=== PATIENT | female | born 1930 | race Caucasian/White ===

== ENCOUNTER → 2017-01-06 | Outpatient (CLI) | payer OTHER ==
[~2017-01-06] MED LIST: AMIO0.1T PO; ATV5 PO; CALC-214 PO; LEVO25TA5 PO; MISC8TAB PO; MULT-506 PO; MULTTAB14 PO; PANT1TAB48 PO; [UNRECOGNIZED DRUG - OTHER] PO
--- NOTE | 2017-01-07 13:44 | MAMMOGRAPHY REPORT ---
BILATERAL DIGITAL SCREENING MAMMOGRAM TOMOSYNTHESIS WITH CAD: 01/06/2017 CLINICAL HISTORY: Routine screening. Patient has no complaints. TECHNIQUE: Breast tomosynthesis in addition to standard 2D mammography was performed. Current study was also evaluated with a Computer Aided Detection (CAD) system. COMPARISON: Comparison is made to exams dated: 01/02/2016 mammogram, 12/04/2014 mammogram, 10/28/2013 mammogram, 10/26/2012 mammogram, 10/17/2011 mammogram, and 10/08/2010 mammogram - [facility]. BREAST COMPOSITION: The tissue of both breasts is heterogeneously dense, which may obscure small mas ses. FINDINGS: The parenchymal pattern is unchanged. There are numerous bilateral benign rim calcificati ons. No developing mass, architectural distortion or cluster of suspicious microcalcifications is se en in either breast. IMPRESSION: ACR BI-RADS CATEGORY 2: BENIGN There is no mammographic evidence of malignancy. A 1 year screening mammogram is recommended. The pa tient will receive written notification of the results. Approximately 10% of breast cancers are not detected with mammography. A negative mammographic report should not delay biopsy if a clinically suggestive mass is present. Natalia Meredith M.D. ay/:01/06/2017 16:57:00 Manufacturers Service Representative: Jamila DURBIN(Anderson)(Rimma)(BD), [facility] letter sent: Normal 1/2 BI-RADS Code: ACR BI-RADS Category 2: Benign
== END | disposition home or self-care (01) ==
LOC: C.MAMM 14:10
PROVIDERS: ATTEND Family Medicine
DX: Z12.31 Encounter for screening mammogram for malignant neoplasm of breast (principal)

== ENCOUNTER 2017-05-05 04:12 | Inpatient (IN) | payer OTHER ==
[~2017-05-05] VITALS: Ht 162.6 cm; Wt 64.1 kg
[2017-05-05] VITALS (7 sets, daily range): BP systolic 103–179; BP diastolic 72–96; PULSE 55–84; TEMP 36.6–37.1; O2SAT 91–93; Ht 162.6 cm; Wt 64.1 kg
[~2017-05-05 04:12] MED LIST changes: +PANT1TAB3 PO; -PANT1TAB48 PO; +TOBRSUS33 OPR
[2017-05-05] MEDS ORDERED: AMIO200T4 PO (04:31)
[2017-05-05] MEDS ORDERED: [UNRECOGNIZED DRUG - CODE] PO (04:37)
[2017-05-05] MEDS ORDERED: ATV5X PO (04:37)
[2017-05-05] MEDS ORDERED: METO25TA4 PO (04:39)
[2017-05-05] MEDS ORDERED: LEVO88TA3 PO (04:39)
[2017-05-05] MEDS ORDERED: ALFA250T PO (04:39)
[2017-05-05 04:46] LABS: BASO % 0.5 %; BASO ABS # 0.04 K/uL (0-0.2); EOS ABS # 0.38 K/uL (0-0.5); HEMATOCRIT 40.4 % (37-47); HEMOGLOBIN 14.3 g/dL (12.0-16.0); IG# 0.01 K/uL (0.00-0.02); LYMPH % 33.9 %; LYMPH ABS # 2.59 K/uL (1.2-3.4); MEAN CORPUSCULAR HEMOGLOBIN 31.5 pg (25-34); MEAN CORPUSCULAR HGB CONC 35.4 g/dl (32-36); MEAN PLATELET VOLUME 10.6 fL (7.4-10.4); MONO % 7.5 %; MONO ABS # 0.57 K/uL (0.11-0.59); NEUT ABS # 4.04 K/uL (1.4-6.5); PLATELET COUNT 232 K/uL (130-400); RED CELL DISTRIBUTION WIDTH CV 13.2 % (11.5-14.5); RED CELL DISTRIBUTION WIDTH SD 43.2 fL (36.4-46.3); WHITE BLOOD COUNT 7.63 K/uL (4.8-10.8)
--- NOTE | 2017-05-05 04:53 | EMERGENCY ROOM VISIT NOTE ---
History Report prepared by Nellie: Sandi Marcum Under the Supervision of: Dr. Elle Frausto D.O. First contact with patient: 04:17 Chief Complaint: CARDIAC ASSESSMENT Stated Complaint: CHEST PRESSURE Nursing Triage Summary: chest pain shortness of breath after walking to the bathroom. History of Present Illness The patient is an 87 year old female who presents to the Emergency Room with complaints of intermittent chest pain for two weeks. She notes that she had a similar episode last week, though she was evaluated by her PCP and he prescribed her Amiodarone and Propranolol. She states her PCP informed her to come to the ED if she had any repeat symptoms. She notes the medication changes made her feel better and gave her more energy. She states that she was not very short of breath last week, though when she had the chest pain at 0200 this morning she became increasingly short of breath. She reports that she feels washed out. She notes the chest pain has resolved, though she is still short of breath. She notes the shortness of breath is worsened on exertion. She states that she is expected to receive a pacemaker in early May 2017 with Nadeem Bee, cardiology, since her heart is fluctuating from racing too quickly to suddenly slowing down. She notes that she can sometimes feel the changes in her hearts rhythm. Per nursing staff, the patient was at 85% oxygen on RA. She was placed on 2L oxygen via NC. She denies any history of CHF. She denies taking any Lasix or other diuretic. Source of History: patient Onset: two weeks Position: chest Timing: intermittent Modifying Factors (Worsening): exertion Associated Symptoms: + SOB Review of Systems See HPI for pertinent positives & negatives. A total of 10 systems reviewed and were otherwise negative. Past Medical & Surgical Medical Problems: (1) HTN (hypertension) (2) Shortness of breath Family History No pertinent family history Social History Smoking Status: Never Smoker Alcohol Use: none Marital Status: Housing Status: lives alone Occupation Status: unemployed Current/Historical Medications Scheduled Jay (Jay), 9 TABS PO DAILY Amiodarone Hcl (Cordarone), 200 MG PO DAILY Calcium W/ Magnesium (Calcium & Magnesium), 1 TAB PO TID Levothyroxine Sodium (Levothyroxine Sodium), 1 TAB PO DAILY Metoprolol Succinate (Toprol Xl), 25 MG PO DAILY Multiple Vitamins W/ Minerals (Icaps Areds Formula), 1 TAB PO BID Multivitamin (Multivitamin), 1 TAB PO QAM Tobramycin-Dexamethasone (Tobradex 0.3% Oph Susp), DROP OPR UD Scheduled PRN Lorazepam (Lorazepam), 0.5 MG PO [id number] PRN for anxiety/stress Rizatriptan Benzoate (Rizatriptan Benzoate), 5 MG PO UD PRN for Migraine Allergies Coded Allergies: Oxycodone (Verified Allergy, Unknown, RASH, 05/05/17) Physical Exam Vital Signs Date Time Temp Pulse Resp B/P (MAP) Pulse Ox O2 Delivery O2 Flow Rate FiO2 05/05/17 06:08 82 23 160/67 92 Room Air 05/05/17 05:11 73 05/05/17 05:09 68 22 142/97 96 Nasal Cannula 4.0 05/05/17 05:05 66 05/05/17 04:45 81 22 94 Nasal Cannula 4.0 05/05/17 04:22 89 Nasal Cannula 2.0 05/05/17 04:22 36.6 92 18 113/85 88 Nasal Cannula 4.0 05/05/17 04:22 88 Nasal Cannula 4.0 05/05/17 04:16 103 Physical Exam HEENT: Head - normocephalic and atraumatic Pupils are equal, round, and reactive to light. Extraocular eye muscles are intact, and sclera are anicteric. Nose - moist nasal mucosa without discharge. Mouth - moist buccal mucosa. Oropharynx is nonerythematous and there is no tonsillar exudate or edema noted. Neck: Supple; no JVD, nuchal rigidity, cervical lymphadenopathy. Heart: Tachycardic rate and irregular rhythm. There is a normal S1 and S2 with no murmurs, clicks, or gallops appreciated. Lungs: Diffuse rales. Abdomen: Soft, completely nontender, nondistended, with good bowel sounds. There are no palpable pulsatile masses or hepatosplenomegaly. There is no guarding, rigidity, or rebound noted. Extremities: No evidence of cyanosis, clubbing, or edema. There are easily palpable peripheral pulses. Skin: warm and dry with good turgor and no rashes. Medical Decision & Procedures ER Provider Diagnostic Interpretation: Radiology results as stated below per my review and interpretation: CHEST XR: Congestive heart failure. Narrow mediastinum. Borderline cardiomegaly. Laboratory Results 05/05/17 04:17 Red Blood Count 4.54, Mean Corpuscular Volume 89.0, Mean Corpuscular Hemoglobin 31.5, Mean Corpuscular Hemoglobin Concent 35.4, Mean Platelet Volume 10.6, Neutrophils (%) (Auto) 53.0, Lymphocytes (%) (Auto) 33.9, Monocytes (%) (Auto) 7.5, Eosinophils (%) (Auto) 5.0, Basophils (%) (Auto) 0.5, Neutrophils # (Auto) 4.04, Lymphocytes # (Auto) 2.59, Monocytes # (Auto) 0.57, Eosinophils # (Auto) 0.38, Basophils # (Auto) 0.04 05/05/17 04:17 Test 05/05/17 04:17 05/05/17 05:54 White Blood Count 7.63 K/uL (4.8-10.8) Red Blood Count 4.54 M/uL (4.2-5.4) Hemoglobin 14.3 g/dL (12.0-16.0) Hematocrit 40.4 % (37-47) Mean Corpuscular Volume 89.0 fL (80-100) Mean Corpuscular Hemoglobin 31.5 pg (25-34) Mean Corpuscular Hemoglobin Concent 35.4 g/dl (32-36) Platelet Count 232 K/uL (130-400) Mean Platelet Volume 10.6 fL (7.4-10.4) Neutrophils (%) (Auto) 53.0 % Lymphocytes (%) (Auto) 33.9 % Monocytes (%) (Auto) 7.5 % Eosinophils (%) (Auto) 5.0 % Basophils (%) (Auto) 0.5 % Neutrophils # (Auto) 4.04 K/uL (1.4-6.5) Lymphocytes # (Auto) 2.59 K/uL (1.2-3.4) Monocytes # (Auto) 0.57 K/uL (0.11-0.59) Eosinophils # (Auto) 0.38 K/uL (0-0.5) Basophils # (Auto) 0.04 K/uL (0-0.2) RDW Standard Deviation 43.2 fL (36.4-46.3) RDW Coefficient of Variation 13.2 % (11.5-14.5) Immature Granulocyte % (Auto) 0.1 % Immature Granulocyte # (Auto) 0.01 K/uL (0.00-0.02) Anion Gap 8.0 mmol/L (3-11) Est Creatinine Clear Calc Drug Dose 38.5 ml/min Estimated GFR () 56.7 Estimated GFR (Non- 49.0 BUN/Creatinine Ratio 18.4 (10-20) Calcium Level 9.5 mg/dl (8.5-10.1) Total Bilirubin 0.6 mg/dl (0.2-1) Aspartate Amino Transf (AST/SGOT) 23 U/L (15-37) Alanine Aminotransferase (ALT/SGPT) 37 U/L (12-78) Alkaline Phosphatase 58 U/L (45-117) Troponin I < 0.015 ng/ml (0-0.045) Pro-B-Type Natriuretic Peptide 2307 pg/ml (0-1800) Total Protein 8.2 gm/dl (6.4-8.2) Albumin 4.0 gm/dl (3.4-5.0) Globulin 4.2 gm/dl (2.5-4.0) Albumin/Globulin Ratio 1.0 (0.9-2) Laboratory results per my review. Medications Administered Medications (Trade) Dose Ordered Sig/Danielle Route Start Time Stop Time Status Last Admin Dose Admin Furosemide (Lasix Inj) 40 mg NOW STAT IV 05/05/17 05:15 05/05/17 05:16 DC 05/05/17 05:20 40 MG Procedure 0515: Ordered Lasix 40 mg IV ECG Per My Interpretation Indication: chest pain Rate (beats per minute): 90 Rhythm: normal sinus Findings: LBBB, PAC ED Course 0424: Past medical records reviewed. The patient was evaluated in room B12B. A complete history and physical exam was performed. Labs are drawn as above. A 12-lead EKG was obtained as described above. Reviewed cardiac rhythm strips and she is having episodes of tachycardia and bradycardia. Underlying rhythm is sinus rhythm with episodes of atrial tachycardia. 0515: A portable chest x-ray was performed. Ordered Lasix 40 mg IV 0521: I spoke with Dr. Viera, [facility] hospitalist. We discussed the patient's case. The patient will be evaluated by the [facility] for further management. 0524: I reassessed the patient at this time. She states that she is feeling better while on the oxygen and she is resting comfortably. I discussed the results and treatment plan with the patient. I answered all pertaining questions that she had. She expressed understanding and verbalized agreement. The patient will be further evaluated. Medical Decision The patient is an 87 year old female who presents to the ED with chest pain. Differential diagnosis includes CHF, ACS, tachy-roque syndrome, cardiac dysrhythmia, and STEMI. Lab results showed: BNP 2307; Troponin <0.015. Normal Renal Function. Gluc 102. Normal H&H. No leukocytosis. This is an 87-year-old female patient presents to the emergency department with increasing shortness of breath and chest pressure. On physical exam, the patient has diffuse rales in her lungs and orthopnea. Chest x-ray confirms evidence of pulmonary vascular congestion consistent with heart failure. Patient's O2 saturations were in the mid 80s without supplemental oxygen. She was given IV Lasix here in the emergency department. The patient explains that her system software programmer had planned for her to have a pacemaker implanted sometime in May as a result of her heart rhythm. Medication Reconcilliation Current Medication List: was personally reviewed by me Blood Pressure Screening Patient's blood pressure: Normal blood pressure Consults Time Called: 05 Consulting Physician: Dr. Viera [facility] Returned Call: [address] [facility] We discussed the patient's case. The patient will be evaluated by the [facility] for further management. Impression Primary Impression: CHF (congestive heart failure) Additional Impressions: Hypoxia Tachy-roque syndrome Critical Care I have personally spent greater than 30 minutes of critical care time in the direct management of this patient. This includes bedside care, interpretation of diagnostic studies, and testing, discussion with consultants, patient, and family members, and other required patient management activities. This 30 minutes is in excess of all separately billable procedures. Scribe Attestation The scribe's documentation has been prepared under my direction and personally reviewed by me in its entirety. I confirm that the note above accurately reflects all work, treatment, procedures, and medical decision making performed by me. Departure Information Dispostion Being Evaluated By Hospitalist Gadiel Kumar D.OFloridalma (PCP) Patient Instructions [facility] Problem Qualifiers Primary Impression: CHF (congestive heart failure) Heart failure type: unspecified Heart failure chronicity: acute Qualified Codes: I50.9 - Heart failure, unspecified
[2017-05-05 05:07] LABS: ALT/SGPT 37 U/L (12-78); AST/SGOT 23 U/L (15-37); BLOOD UREA NITROGEN 19 mg/dl (7-18); CALCIUM 9.5 mg/dl (8.5-10.1); CARBON DIOXIDE 26 mmol/L (21-32); CREATININE 1.04 mg/dl (0.60-1.20); GLUCOSE 102 mg/dl (70-99); POTASSIUM 3.9 mmol/L (3.5-5.1); SODIUM 139 mmol/L (136-145)
[2017-05-05 05:12] LABS: ALKALINE PHOSPHATASE 58 U/L (45-117); TOTAL PROTEIN 8.2 gm/dl (6.4-8.2)
[2017-05-05] MEDS ORDERED: FUROSEMIDE 40 MG/4 ML VIAL IV STA (05:15)
--- NOTE | 2017-05-05 06:08 | History and Physical ---
History & Physical Date & Time of Service: May 05, 2017 at 06:01 Chief Complaint: Chest Pressure Primary Care Physician: Gadiel Haile D.O. History of Present Illness This is an 87 year old F who has seen Dr. Silver cook syrup maker at [facility] as outpatient and as per outpatient chart review was started on amiodarone on because of palpitation symptoms and cardiology diagnosis include tachy- roque syndrome vs paroxysmal SVT, also has left bundle branch block. Since the cardiology outpatient patient, patient has been taking both metoprolol succinate 25 mg daily and amiodarone 200 mg daily. As per review of Dr. Silver's notes the outpatient plan was to have patient return as outpatient for resting echocardiogram, return for a 24 hour Holter monitor on 05/18/2017, return to see Dr. Patel of electrophysiology in consultation in May to review Holter monitor results are then to re-evaluate for further medication changes or possible pacemaker Patient had acute symptoms of waking up at 2AM on 05/05/17 with perspiration, walked to the bathroom and felt shortness of breath, heart pounding, chest tightness and heaviness, and subsequently called for the ambulance patient reports taking aspirin and nitro sublingual on the ambulance ride with relief of symptoms in the ED patient's heart rhythm irregular but heart rate became better controlled while in the ED ED physician gave patient 40 mg of IV Lasix and asked hospitalist medical doctor for evaluation and admission when examined by hospitalist medical doctor, patient denies feeling previous reported symptoms currently Past Medical/Surgical History Medical Problems: (1) Aortic stenosis (2) Heart palpitations (3) Heart palpitations (4) HTN (hypertension) (5) LBBB (left bundle branch block) (6) Mitral valve prolapse (7) Shortness of breath Family History No pertinent family history Social History Smoking Status: Never Smoker Marital Status: Occupational Status: unemployed Immunizations History of Influenza Vaccine: Yes History of Tetanus Vaccine?: Unknown History of Pneumococcal: Yes Pneumococcal Date: Nov 25, 2003 History of Hepatitis B Vaccine: Unknown Allergies Coded Allergies: Oxycodone (Verified Allergy, Unknown, RASH, 05/05/17) Home Medications Scheduled Washita (Washita), 9 TABS PO DAILY Amiodarone Hcl (Cordarone), 200 MG PO DAILY Calcium W/ Magnesium (Calcium & Magnesium), 1 TAB PO TID Levothyroxine Sodium (Levothyroxine Sodium), 1 TAB PO DAILY Metoprolol Succinate (Toprol Xl), 25 MG PO DAILY Multiple Vitamins W/ Minerals (Icaps Areds Formula), 1 TAB PO BID Multivitamin (Multivitamin), 1 TAB PO QAM Tobramycin-Dexamethasone (Tobradex 0.3% Oph Susp), DROP OPR UD Scheduled PRN Lorazepam (Lorazepam), 0.5 MG PO [id number] PRN for anxiety/stress Rizatriptan Benzoate (Rizatriptan Benzoate), 5 MG PO UD PRN for Migraine Review of Systems Constitutional: + sweats, No fever, No weakness, No fatigue Eyes: + problem reported (reports history of macular degeneration), No eye pain ENT: + problem reported (reports that she takes aspirin every other day to avoid nose bleeds), No hearing loss Respiratory: + shortness of breath, No cough, No wheezing, No hemoptysis Cardiovascular: + chest pain, + palpitations, No edema Abdomen: No pain, No nausea, No vomiting Musculoskeletal: No joint pain, No muscle pain, No swelling, No calf pain Genitourinary - Female: No dysuria Neurologic: No paralysis, No numbness/tingling Endocrine: No fatigue Hematologic / Lymphatic: No abnormal bleeding/bruising Integumentary: No rash, No itch Physical Exam Vital Signs Date Time Temp Pulse Resp B/P (MAP) Pulse Ox O2 Delivery O2 Flow Rate FiO2 05/05/17 05:11 73 05/05/17 05:09 68 22 142/97 96 Nasal Cannula 4.0 05/05/17 05:05 66 05/05/17 04:45 81 22 94 Nasal Cannula 4.0 05/05/17 04:22 89 Nasal Cannula 2.0 05/05/17 04:22 36.6 92 18 113/85 88 Nasal Cannula 4.0 05/05/17 04:22 88 Nasal Cannula 4.0 05/05/17 04:16 103 General Appearance: no apparent distress Head: normocephalic, atraumatic Eyes: normal inspection, EOMI, sclerae normal ENT: normal ENT inspection, hearing grossly normal, pharynx normal Neck: supple, no adenopathy, no JVD, trachea midline Respiratory/Chest: chest non-tender, lungs clear, normal breath sounds, no respiratory distress, no accessory muscle use Cardiovascular: no edema, no JVD, normal peripheral pulses, + abnormal rhythm Abdomen/GI: normal bowel sounds, non tender, soft, no organomegaly, no pulsatile mass Back: normal inspection, no muscle spasm, normal range of motion Extremities/Musculoskelatal: normal inspection, no calf tenderness, normal capillary refill, no pedal edema, normal range of motion, non-tender Neurologic/Psych: adjustment examiner II-XII nml as tested, no motor/sensory deficits, alert, normal mood/affect, oriented x 3 Skin: normal color, warm/dry, no rash Diagnostics Laboratory Results Results Past 24 Hours Test 05/05/17 04:17 05/05/17 05:54 Range/Units White Blood Count 7.63 4.8-10.8 K/uL Red Blood Count 4.54 4.2-5.4 M/uL Hemoglobin 14.3 12.0-16.0 g/dL Hematocrit 40.4 37-47 % Mean Corpuscular Volume 89.0 80-100 fL Mean Corpuscular Hemoglobin 31.5 25-34 pg Mean Corpuscular Hemoglobin Concent 35.4 32-36 g/dl Platelet Count 232 130-400 K/uL Mean Platelet Volume 10.6 7.4-10.4 fL Neutrophils (%) (Auto) 53.0 % Lymphocytes (%) (Auto) 33.9 % Monocytes (%) (Auto) 7.5 % Eosinophils (%) (Auto) 5.0 % Basophils (%) (Auto) 0.5 % Neutrophils # (Auto) 4.04 1.4-6.5 K/uL Lymphocytes # (Auto) 2.59 1.2-3.4 K/uL Monocytes # (Auto) 0.57 0.11-0.59 K/uL Eosinophils # (Auto) 0.38 0-0.5 K/uL Basophils # (Auto) 0.04 0-0.2 K/uL RDW Standard Deviation 43.2 36.4-46.3 fL RDW Coefficient of Variation 13.2 11.5-14.5 % Immature Granulocyte % (Auto) 0.1 % Immature Granulocyte # (Auto) 0.01 0.00-0.02 K/uL Sodium Level 139 136-145 mmol/L Potassium Level 3.9 3.5-5.1 mmol/L Chloride Level 105 98-107 mmol/L Carbon Dioxide Level 26 21-32 mmol/L Anion Gap 8.0 3-11 mmol/L Blood Urea Nitrogen 19 7-18 mg/dl Creatinine 1.04 0.60-1.20 mg/dl Est Creatinine Clear Calc Drug Dose 38.5 ml/min Estimated GFR () 56.7 Estimated GFR (Non- 49.0 BUN/Creatinine Ratio 18.4 10-20 Random Glucose 102 70-99 mg/dl Calcium Level 9.5 8.5-10.1 mg/dl Total Bilirubin 0.6 0.2-1 mg/dl Aspartate Amino Transf (AST/SGOT) 23 15-37 U/L Alanine Aminotransferase (ALT/SGPT) 37 12-78 U/L Alkaline Phosphatase 58 45-117 U/L Troponin I < 0.015 0-0.045 ng/ml Pro-B-Type Natriuretic Peptide 2307 0-1800 pg/ml Total Protein 8.2 6.4-8.2 gm/dl Albumin 4.0 3.4-5.0 gm/dl Globulin 4.2 2.5-4.0 gm/dl Albumin/Globulin Ratio 1.0 0.9-2 Impression Assessment and Plan This is an 87 year old F who has seen Dr. Silver cook syrup maker at [facility] as outpatient and as per outpatient chart review was started on amiodarone on because of palpitation symptoms and cardiology diagnosis include tachy- roque syndrome vs paroxysmal SVT, also has left bundle branch block Assessment/ Plan: symptoms of shortness or breath, chest discomfort, palpitations likely due to arrhythmia - most likely from outpatient diagnosis of tachy-roque syndrome -patient is clinically euvolemic, has received Lasix 40 mg IV x 1 in the ER because of elevated BNP -admission to telemetry, initial troponin negative, trend troponins -continue amiodarone 200 mg daily, metoprolol succinate 25 mg daily -continue Levothyroxine, check TSH and T4 -check serum magnesium -hold home dose aspirin for now as patient already received aspirin on the ambulance ride -have ordered resting echocardiogram to be done on this admission -cardiology consult requested -keep NPO (except meds/ice chips/sips) until after cardiology consult evaluation and further recommendations other health issues macular degeneration, hold eye drops for now arthritis, hold alfalfa tabs and naproxen for now DVT ppx SCD Full code Resuscitation Status VTE Prophylaxis Will order VTE Prophylaxis: Yes
--- NOTE | 2017-05-05 07:00 | DIAGNOSTIC IMAGING REPORT ---
CHEST ONE VIEW PORTABLE CLINICAL HISTORY: 87 years-old Female presenting with sob. TECHNIQUE: Portable upright AP view of the chest was obtained. COMPARISON: 12/01/2013. FINDINGS: Atherosclerosis of aortic arch. Cardiac silhouette mildly enlarged. Mid to basilar predominant hazy and reticular opacities. Calcified granuloma noted at the left apex. Trace left pleural effusion may be present. Degenerative changes of the thoracic spine. Slightly exaggerated thoracic kyphosis. Upper abdomen normal. IMPRESSION: 1. Mild cardiomegaly with mid to basilar predominant opacities raising concern for pulmonary edema or aspiration. 2. Possible trace left pleural effusion. Electronically signed by: Ramesh Camargo M.D. 05/05/2017 6:59 AM Dictated Date/Time: 05/05/2017 6:58 AM
[2017-05-05] MEDS: LEVOTHYROXINE 88 MCG TAB PO SCH (08:55)
[2017-05-05] MEDS ORDERED: METOPROLOL SUCC 25MG EXT REL TAB PO SCH (09:00)
[2017-05-05] MEDS ORDERED: AMIODARONE 200 MG TAB PO SCH (09:00)
--- NOTE | 2017-05-05 10:06 | CARDIOLOGY CONSULTATION ---
DATE OF CONSULTATION: 05/05/2017 CONSULTATION REQUESTED BY: Dr. Viera. REASON FOR CONSULTATION: Palpitations. HISTORY OF PRESENT ILLNESS: Mrs. Bender is a very pleasant 87-year-old woman who normally follows with Dr. Silver of our cardiology practice. She presented to [facility] early in the a.m. of 05/05/2017 with a complaint of acute chest discomfort and palpitations. The patient states that she went to bed last night in her normal state of health, but then woke up at approximately 02:00 a.m. and felt a discomfort in her chest. She described the discomfort as a pounding sensation that started in her mid substernal area and radiated up into her neck. This was associated with some shortness of breath and lightheadedness. She states that this is very similar to the episodes that she has had in the past with her SVT, for which she has been following Dr. Silver; however, this episode actually seemed more severe than normal. At that time, she became concerned and came into the Emergency Department. In the Emergency Department, she was found to be in sinus rhythm with frequent atrial ectopy and sinus pauses. She was thought to be a little volume overload and was given a dose of IV Lasix and she states that her symptoms started to improve. She is still feeling short of breath in the Emergency Department, but the chest discomfort and palpitations had resolved. She was admitted to telemetry and overnight, again we saw a sinus rhythm with frequent ectopy and significant sinus pauses. Upon further questioning, the patient states that she has been lightheaded recently. Particularly, she notes that she is lightheaded with activity whenever she tries to walk up a flight of steps or walking any significant distances. The patient has been following very closely with Dr. 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 She has actually been restarted on amiodarone for her paroxysmal SVT as well as metoprolol. A recent Zio patch monitor in July showed heart rates ranging from 43-200 beats per minute. The patient was actually scheduled for an outpatient echocardiogram and evaluation with Dr. Patel for possible pacemaker placement. PAST SURGICAL HISTORY: 1. Multiple colonoscopies. 2. Upper endoscopies. 3. Sinus surgery. 4. Vein stripping. 5. Partial mastectomy. 6. Appendectomy. 7. Cataract surgery. 8. Small bowel biopsy. 9. Total abdominal hysterectomy. 10. Left total hip replacement. MEDICAL ILLNESSES: 1. Paroxysmal supraventricular tachycardia. 2. Varicose veins. 3. Chronic left bundle branch block. 4. Osteoporosis. 5. Irritable bowel. 6. Hypothyroidism. 7. Ocular migraines. 8. Hypertension. FAMILY HISTORY: Noncontributory. SOCIAL HISTORY: The patient denies any alcohol, tobacco or recreational drug use. She is . She is a retired RN. REVIEW OF SYSTEMS: As per HPI, all other review of systems reviewed and negative at this time. ALLERGIES: OXYCODONE. MEDICATIONS AN OUTPATIENT: 1. Amiodarone 200 mg daily. 2. Aspirin 81 mg daily. 3. Metoprolol succinate 25 mg daily. 4. Omeprazole daily. 5. Ativan p.r.n. 6. Levoxyl daily. 7. Flonase daily. PHYSICAL EXAMINATION: VITALS: Temperature 36.7, pulse 84, respiratory rate 12, blood pressure 175/81, and saturating 92% on room air. GENERAL: Awake, alert, and oriented x3 in no acute distress. HEENT: Normocephalic and atraumatic. Pupils equal, round react to light and accommodation. Extraocular muscles intact. Anicteric sclerae. Moist mucous membranes. NECK: No JVD and no bruit. CARDIOVASCULAR: Irregularly irregular with significant pauses. 2/6 mid to late systolic ejection murmur greatest at the right sternal border second intercostal space without radiation. No rubs. PULMONARY: Clear to auscultation bilaterally. No rales, rhonchi, or wheezing. ABDOMEN: Bowel sounds x4. Soft. No rebound, guarding, or tenderness. No organomegaly. EXTREMITIES: No clubbing, cyanosis or edema. +2 pedal pulses bilaterally. SKIN: Warm and dry. TEST RESULTS: Review of telemetry monitoring shows sinus rhythm with an underlying left bundle branch block, frequent atrial ectopy including short salvos of SVT and significant sinus pauses. A 2D echocardiogram is pending at this time. LABORATORY STUDIES OF SIGNIFICANCE: Sodium 139, potassium 3.9, BUN 19, and creatinine 1. TSH of 2.9. White count of 7.6, hemoglobin of 14, and platelet count of 232. IMPRESSION: 1. Tachybrady syndrome. 2. Paroxysmal supraventricular tachycardia. 3. Hypertension. 4. Chronic underlying left bundle branch block. RECOMMENDATIONS: It was my pleasure to see Mrs. Bender in consultation today. The patient was counseled that given her symptoms, it does appear as though she is symptomatic from her supraventricular tachycardia and also appears that she may be suffering from chronotropic incompetence as well given the lightheadedness with exertion. She does have documented rates down into the 40s on only low dose amiodarone and metoprolol. So at this point, I believe the patient does suffer from tachybrady syndrome and would benefit from pacemaker placement, which was discussed with her and she is in agreement. So at this time, as long as her LV systolic function is not severely reduced, we will plan on a dual chamber permanent pacemaker placement and then increasing of her beta blockade and amiodarone to suppress her SVT. There is no sustained atrial flutter or fibrillation, so I do not believe anticoagulation is necessary at this time and the case will be reviewed with Dr. Patel for pacemaker placement. The patient will remain n.p.o. for now.
[2017-05-05 10:27] LABS: PTT PATIENT 24.1 SECONDS (21.0-31.0)
--- NOTE | 2017-05-05 10:40 | ECHOCARDIOGRAM REPORT ---
*NOTICE TO RECEIVING DEMOCRAT AGENCY This information is strictly Confidential and protected under [place] law. [place] law prohibits you from making any further disclosure of this information unless further disclosure is expressly permitted by the written consent of the person to whom it pertains or is authorized by law. A general authorization for the release of medical or other information is not sufficient for this purpose. Hospital accepts no responsibility if the information is made available to any other person, INCLUDING THE PATIENT. Interpretation Summary * Name: PABLO OSORIO Study Date: 05/05/2017 09:14 AM BP: 175/81 mmHg * Patient Location: [facility]\S\[id number]\S\1 HR: 84 * : 1930 (M/d/yyyy) Gender: Female Height: 64 in * Age: 87 yrs Ethnicity: [place] Weight: 159 lb * Ordering Physician: Angelo Viera * Referring Physician: Self, Referred * Performed By: Danica Laura RCS * * Reason For Study: Tachy-Niles * BSA: 1.8 m2 * -- Conclusions -- * Rhythm during examination was sinus with underlying LBBB along with salvos of SVT and sinus pauses. * Normal LV chamber size and wall thickness. * Normal LV systolic function, EF 55-60%. * No segmental left ventricular wall motion abnormalities are noted. * Grade I diastolic dysfunction. * Aortic valve sclerosis mild, without significant aortic valvular stenosis. * Mild mitral regurgitation. * Trace tricuspid regurgitation. * Mild left atrial enlargement. Procedure Details * A complete two-dimensional transthoracic echocardiogram was performed (2D, M-mode, Doppler and color flow Doppler). Left Ventricle * The left ventricle is normal in size. * There is normal left ventricular wall thickness. * Left ventricular systolic function is normal. * No segmental left ventricular wall motion abnormalities are noted. * Ejection Fraction = 55-60%. * The left ventricular wall motion is normal. Right Ventricle * The right ventricular cavity size is normal (basal dimension <4.2 cm in right ventricular apical 4-chamber view). * The right ventricular systolic function is normal as assessed by tricuspid annular plane systolic excursion (TAPSE) (normal >1.5 cm). Atria * The left atrium is mildly dilated. * Right atrial size is normal. * No ASD detected; PFO is not assessed. Mitral Valve * The mitral valve leaflets appear thickened, but open well. * There is no mitral valve stenosis. * There is mild mitral regurgitation. Tricuspid Valve * The tricuspid valve anatomy is normal. * There is no tricuspid stenosis. * There is trace tricuspid regurgitation. Aortic Valve * The aortic valve is trileaflet. * Aortic valve sclerosis mild, without significant aortic valvular stenosis. Pulmonic Valve * The pulmonary valve is not well seen, but the Doppler examination is normal without significant regurgitation or stenosis. Great Vessels * The aortic root and proximal ascending aorta are normal sized. Pericardium/Pleural * There is no pericardial effusion. Left Ventricular Diastolic Function * Grade I diastolic dysfunction, (abnormal relaxation pattern). MMode 2D Measurements and Calculations IVSd 0.95 cm IVSs 1.2 cm LVIDd 5.0 cm LVIDs 3.7 cm LVPWd 0.99 cm LVPWs 1.4 cm IVS/LVPW 0.96 FS 25.4 % EDV(Teich) 117.4 ml ESV(Teich) 58.9 ml EF(Teich) 49.9 % EDV(cubed) 123.9 ml ESV(cubed) 51.5 ml EF(cubed) 58.5 % % IVS thick 28.8 % % LVPW thick 45.5 % LV mass(C)d 175.0 grams LV mass(C)dI 98.6 grams/m\S\2 LV mass(C)s 175.5 grams LV mass(C)sI 98.9 grams/m\S\2 SV(Teich) 58.6 ml SI(Teich) 33.0 ml/m\S\2 SV(cubed) 72.4 ml SI(cubed) 40.8 ml/m\S\2 Ao root diam 3.5 cm Ao root area 9.4 cm\S\2 ACS 1.3 cm LA dimension 4.6 cm asc Aorta Diam 3.5 cm LA/Ao 1.3 EDV(MOD-sp4) 100.7 ml ESV(MOD-sp4) 41.5 ml EF(MOD-sp4) 58.8 % EDV(MOD-sp2) 90.7 ml ESV(MOD-sp2) 49.8 ml EF(MOD-sp2) 45.1 % SV(MOD-sp4) 59.2 ml SI(MOD-sp4) 33.4 ml/m\S\2 SV(MOD-sp2) 40.9 ml SI(MOD-sp2) 23.0 ml/m\S\2 Doppler Measurements and Calculations MV E max miller 70.7 cm/sec MV A max miller 102.7 cm/sec MV E/A 0.69 MV P1/2t max miller 96.6 cm/sec MV P1/2t 132.5 msec MVA(P1/2t) 1.7 cm\S\2 MV dec slope 213.5 cm/sec\S\2 MV dec time 0.48 sec Ao V2 max 131.1 cm/sec Ao max PG 7.0 mmHg Ao max PG (full) 3.7 mmHg LV V1 max PG 3.3 mmHg LV V1 max 90.3 cm/sec PA V2 max 78.0 cm/sec PA max PG 2.5 mmHg TR max miller 255.5 cm/sec
[2017-05-05] MEDS ORDERED: BUPIVACAINE 0.5 % 5 MG/1 ML MPF 30ML VIAL ONE (10:58)
[2017-05-05] MEDS ORDERED: BACITRACIN 50000 UNIT VIAL ONE (10:58)
[2017-05-05] MEDS ORDERED: LIDOCAINE HCL 1% 20 ML VIAL ONE (10:58)
--- NOTE | 2017-05-05 10:58 | History & Physical Bridge Note ---
H&P Re-Evaluation Bridge Note: I have examined the patient, reviewed the History & Physical and in the interval since the performance of the History & Physical I have noted the following changes of clinical significance: Pt with Tachy-roque syndrome for a dual chamber pacemaker.
--- NOTE | 2017-05-05 10:59 | Pre Sedation Assessment ---
Pre Sedation Assessment General Date of Sedation: May 05, 2017. Vital Signs Past 12 Hours Date Time Temp Pulse Resp B/P (MAP) Pulse Ox O2 Delivery O2 Flow Rate FiO2 05/05/17 08:00 92 Room Air 05/05/17 07:24 36.7 84 16 175/81 (112) 92 Room Air 05/05/17 06:40 36.9 81 18 172/96 (121) 93 Room Air 05/05/17 06:40 36.9 74 20 172/96 93 Room Air 05/05/17 06:08 82 23 160/67 92 Room Air 05/05/17 05:11 73 05/05/17 05:09 68 22 142/97 96 Nasal Cannula 4.0 05/05/17 05:05 66 05/05/17 04:45 81 22 94 Nasal Cannula 4.0 05/05/17 04:22 89 Nasal Cannula 2.0 05/05/17 04:22 36.6 92 18 113/85 88 Nasal Cannula 4.0 05/05/17 04:22 88 Nasal Cannula 4.0 05/05/17 04:16 103 Review Cardiovascular: + bradycardia Lungs: lungs clear Pre-Sedation Airway Assessment Smoking Status: Never Smoker Hx of Sleep Apnea: No Short Thick Neck: No Thyro-mental Distance: < or =3 Finger Breadths Oral Cavity: WNL Mallampati Classification: Class II ASA Classification: Class II Procedure Planning Contraindications for Sedation: None Current Medications Reviewed: Yes Notes The planned sedation has been discussed with the patient. Informed Consent was obtained. I have identified the patient, determined the appropriateness of sedation and have assessed the patient immediately prior to the procedure. All medicine(s) and interventions are by my order.
[2017-05-05] MEDS ORDERED: FENTANYL CITRATE INJ 50 MCG/1 ML 2 ML VIAL ONE ×2 (11:11→11:51)
[2017-05-05] MEDS ORDERED: WATER, STERILE FOR INJ 10 ML VIAL ONE (11:11)
[2017-05-05] MEDS ORDERED: MIDAZOLAM HCL 5 MG/ML 1 ML VIAL ONE (11:11)
[2017-05-05] MEDS ORDERED: CEFAZOLIN SOD 1 GM VIAL ONE (11:11)
--- NOTE | 2017-05-05 12:36 | Post Sedation Assessment ---
Post Sedation Assessment General Date of Sedation May 05, 2017. Vital Signs: Vital Signs Past 12 Hours Date Time Temp Pulse Resp B/P (MAP) Pulse Ox O2 Delivery O2 Flow Rate FiO2 05/05/17 12:30 66 16 138/83 (101) 95 Mask 4 05/05/17 08:00 92 Room Air 05/05/17 07:24 36.7 84 16 175/81 (112) 92 Room Air 05/05/17 06:40 36.9 81 18 172/96 (121) 93 Room Air 05/05/17 06:40 36.9 74 20 172/96 93 Room Air 05/05/17 06:08 82 23 160/67 92 Room Air 05/05/17 05:11 73 05/05/17 05:09 68 22 142/97 96 Nasal Cannula 4.0 05/05/17 05:05 66 05/05/17 04:45 81 22 94 Nasal Cannula 4.0 05/05/17 04:22 89 Nasal Cannula 2.0 05/05/17 04:22 36.6 92 18 113/85 88 Nasal Cannula 4.0 05/05/17 04:22 88 Nasal Cannula 4.0 05/05/17 04:16 103 Post Procedure Recovery Score Activity: (2) Moves 4 extremities * Respiration: (2) Deep breath/cough Circulation: (2) +/-20% PreAnes Value Consciousness: (1) Arouseable (by name) Oxygen Saturation: (1) O2 needed for >90% Post Anesthesia Score: 8 Discharge Sedation Level of Care: Fast Track Phase II Post Sedation Plan On clinical assessment, the patient appears to have tolerated the sedation without complications. Patient is recovering as anticipated. Patient will continue to be monitored by nursing and may be discharged when sedation discharge criteria are met per below protocol. Upon Completions of procedure and additional 15 minutes continue every 5 minute vital signs and the P.A.R. score; then discharge to a Phase I or Fast Track to Phase II per the following guidelines: * Discharge Patient to appropriate Phase II area if PAR is 8 or greater or return to pre- procedure baseline. The post - procedure orders will be as directed. * If PAR score is less than 8 or not return to pre-procedure baseline then patient will follow Phase I monitoring till PAR is reached for Phase II. The Phase I may be done in procedure room or may call to secure a Phase I area. * If naloxone or flumazenil are used for reversal, hold in Phase I for an additional 60 -120 minutes before discharge to Phase II. Please call the Sedation Physician to re-evaluate and complete post-note for discharge to Phase II area. Do NOT discharge from procedure sedation or Phase 1 until post- sedation evaluation note is complete by procedure /sedation MD Sedation Discharge Instructions to be given to the patient at discharge to home.
--- NOTE | 2017-05-05 12:37 | [facility] Post Operative Brief Note ---
Immediate Operative Summary Operative Date May 05, 2017. Pre-Operative Diagnosis tbs Post-Operative Diagnosis same Procedure(s) Performed dual chamber rate responsive permanent pacemaker under fluroscopic guidance Surgeon gagan eugene Stone Carver Surgeon(s) none Estimated Blood Loss 20cc Findings See Below see official report Fluids (cc crystalloids) 150cc Specimens none Drains None Anesthesia Type IV Sedat Cons RN Only Complication(s) none Disposition Accompanied Pt To Recover: yes Disposition: PCU
--- NOTE | 2017-05-05 13:32 | OPERATIVE REPORT ---
DATE OF OPERATION: 05/05/2017 PREOPERATIVE DIAGNOSIS: Tachybrady syndrome. POSTOPERATIVE DIAGNOSIS: Same. PROCEDURE: Dual chamber rate responsive permanent pacemaker under fluoroscopic guidance. SURGEON: Dr. Chantale Patel. [employer]ILER[employer]SE ME[employer]IC: None. ANESTHESIA: Monitored conscious sedation administered under my supervision by Sangiat Doyle. Start time 11:23, end time 12:30. A total of 5 mg of Versed and 150 mcg of fentanyl. INTRAVENOUS FLUIDS: 150 mL ANTIBIOTICS: 1 gram of Ancef. BLOOD LOSS: Less than 20 mL COMPLICATIONS: None. CONDITION: Stable. URINE OUTPUT: Not applicable. SPECIMENS: None. FINDINGS: See below. DRAINS: None. INDICATIONS: This is an 87-year-old female who sees Dr. Silver in our office. She has paroxysmal SVT, probably an atrial tachycardia, chronic left bundle-branch block, varicose veins, hypothyroidism, ocular migraines, hypertension, irritable bowel syndrome and osteoporosis. She has been showing signs of tachybrady syndrome, ended up in the hospital due to the symptoms of tachybrady syndrome and was recommended a permanent pacemaker. CONSENT: Consent was obtained prior to the patient going into electrophysiology lab. The patient was informed of the risks, benefits and alternatives to the procedure. Risks include but not limited to sudden cardiac , cardiac arrhythmias, cerebrovascular accident, myocardial infarction, injury to the blood vessels, chamber of the heart, bleeding and infection. DESCRIPTION OF THE PROCEDURE: 20 mL of 1% lidocaine-bupivacaine mixture were given in the left deltoid groove. Incision was made in the left deltopectoral groove. Blunt dissection was performed down to identify the cephalic vein. The cephalic vein was identified and isolated using 0 silk ties. The vein was nicked with an 11 blade and a Glidewire was inserted without any resistance. An 8-Fijian sheath was inserted through the guidewire without any resistance. Dilator was removed and a second guidewire was inserted through the 8-Fijian sheath to allow for retained venous access. The sheath was removed, flushed, dilator reinserted over it and then it was reinserted over the Glidewire. The Glidewire and dilator removed. Right ventricular pacing lead was then advanced into right ventricle and positioned into right ventricular apex under fluoroscopic guidance. There were adequate pacing and sensing thresholds and no diaphragmatic stimulation with high output pacing. The 8-Fijian sheath was peeled away and lead was fixated to pectoralis muscle using 0 silk suture. A 7-Fijian sheath was then inserted over the retained guidewire without resistance. The guidewire and dilator removed. The right atrial pacing lead was then advanced into the right atrium and positioned into right atrial appendage under fluoroscopic guidance. There were adequate pacing and sensing thresholds and no diaphragmatic stimulation with high output pacing. The 7-Fijian sheath was peeled away and lead was fixated to pectoralis muscle using 0 silk suture. 10 mL of 1% lidocaine-bupivacaine mixture were given in the pectoralis fascia. Then, using blunt dissection over the pectoralis muscle within the fascia, a pacemaker pocket was created. The pocket was flushed with copious amounts of bacitracin saline wash and inspected for hemostasis. The pulse generator was then attached to the leads, making sure the pins were in appropriate position, passed set screws and set screws were all tightened. Pulse generator was then placed in the pocket, making sure the leads were lying flat beneath the device. A stay stitch using 0 silk suture was used to secure the device to the pectoralis muscle. The incision was then closed in 3-layer fashion using 2-0 Vicryl interrupted suture, followed by 3-0 Vicryl interrupted suture, followed by 4-0 Monocryl running stitch and Dermabond was applied. EQUIPMENT: 1. Pulse generator is a Medtronic Sindy XT DR ADAM Aguero [id number], serial #[id number]. 2. Right atrial lead Medtronic 5076-52 cm, serial #[id number]. 3. Right ventricular lead, Medtronic 5076-58 cm, serial #[id number]. INTRAOPERATIVE TESTIN. Right atrial lead, P-waves 2.5 millivolts, impedance 879 ohms, threshold 0.4 volts at 0.6 milliamps. 2. Right ventricular lead, R-waves 17.4 millivolts, impedance 906 ohms, threshold 1.1 volt at 1.3 milliamps. FINAL MEASUREMENTS THROUGH THE DEVICE: 1. Right atrial lead, P-waves 1.9 millivolts, impedance 684 ohms, threshold 0.5 volts at 0.4 milliseconds. 2. Right ventricular lead, R-waves 20 millivolts, impedance 589 ohms, threshold 1 volt at 0.4 milliseconds. FINAL PARAMETERS: MVP-R 60/130. Right atrial amplitude 3.5 volts, pulse width 0.4 milliseconds, sensitivity 0.3 millivolts. Right ventricular amplitude 3.5 volts, pulse width 0.4 milliseconds, sensitivity 1.2 millivolts. IMPRESSION: Successful implantation of dual chamber rate responsive permanent pacemaker under fluoroscopic guidance secondary to tachybrady syndrome. PLAN: Monitor the patient overnight, 12-lead ECG, chest x-ray. She cannot lift the left elbow over left shoulder for 1 month. She cannot lift more than 10 pounds with the left arm for 2 weeks. She can shower tomorrow in 48 hours, let water run over the incision, do not scrub it. She can continue her amiodarone as well as her metoprolol. She is to follow up in our [facility] office for device and wound check in 7-10 days. I attest to the content of the Intraoperative Record and any orders documented therein. Any exception s are noted below.
[2017-05-05] MEDS ORDERED: NURSING VERBAL MED ORDER ONE ×3 (16:00→20:15)
[2017-05-05] MEDS ORDERED: ONDANSETRON INJ 2 MG/ML 2 ML VIAL IV ONE (16:15)
--- NOTE | 2017-05-05 16:44 | Progress Note ---
Medicine Progress Note Date & Time of Visit: May 05, 2017 at 16:27. Subjective Pt was seen and examined Lying in bed with no distress with son at bedside Just came back from surgery for pacemaker placement Pt said that she is having tenderness from the incision site Denies any palpitation and SOB Objective Last 8 Hrs Date Time Temp Pulse Resp B/P (MAP) Pulse Ox O2 Delivery O2 Flow Rate FiO2 05/05/17 12:50 36.7 60 14 103/75 (84) 91 Room Air Mask 05/05/17 12:30 66 16 138/83 (101) 95 Mask 4 Physical Exam: General- No acute distress Head- atraumatic Eyes- PERRL, EOMI ENT- oropharynx clear Neck- supple, no JVD Lungs- clear to auscultation Heart- +murmur, Irregular Abdomen- normal bowel sounds, soft Extremities- no calf tenderness Neuro- alert, oriented x 3; PERRL, EOMI Skin- warm & dry Laboratory Results: Last 24 Hours Test 05/05/17 04:17 05/05/17 09:53 White Blood Count 7.63 K/uL Red Blood Count 4.54 M/uL Hemoglobin 14.3 g/dL Hematocrit 40.4 % Mean Corpuscular Volume 89.0 fL Mean Corpuscular Hemoglobin 31.5 pg Mean Corpuscular Hemoglobin Concent 35.4 g/dl Platelet Count 232 K/uL Mean Platelet Volume 10.6 fL Neutrophils (%) (Auto) 53.0 % Lymphocytes (%) (Auto) 33.9 % Monocytes (%) (Auto) 7.5 % Eosinophils (%) (Auto) 5.0 % Basophils (%) (Auto) 0.5 % Neutrophils # (Auto) 4.04 K/uL Lymphocytes # (Auto) 2.59 K/uL Monocytes # (Auto) 0.57 K/uL Eosinophils # (Auto) 0.38 K/uL Basophils # (Auto) 0.04 K/uL RDW Standard Deviation 43.2 fL RDW Coefficient of Variation 13.2 % Immature Granulocyte % (Auto) 0.1 % Immature Granulocyte # (Auto) 0.01 K/uL Sodium Level 139 mmol/L Potassium Level 3.9 mmol/L Chloride Level 105 mmol/L Carbon Dioxide Level 26 mmol/L Anion Gap 8.0 mmol/L Blood Urea Nitrogen 19 mg/dl Creatinine 1.04 mg/dl Est Creatinine Clear Calc Drug Dose 38.5 ml/min Estimated GFR () 56.7 Estimated GFR (Non- 49.0 BUN/Creatinine Ratio 18.4 Random Glucose 102 mg/dl Calcium Level 9.5 mg/dl Magnesium Level 2.4 mg/dl Total Bilirubin 0.6 mg/dl Aspartate Amino Transf (AST/SGOT) 23 U/L Alanine Aminotransferase (ALT/SGPT) 37 U/L Alkaline Phosphatase 58 U/L Troponin I < 0.015 ng/ml < 0.015 ng/ml Pro-B-Type Natriuretic Peptide 2307 pg/ml Total Protein 8.2 gm/dl Albumin 4.0 gm/dl Globulin 4.2 gm/dl Albumin/Globulin Ratio 1.0 Thyroid Stimulating Hormone (TSH) 2.920 uIu/ml Thyroxine (T4) 10.0 mcg/dl Prothrombin Time 10.0 SECONDS Prothromb Time International Ratio 1.0 Activated Partial Thromboplast Time 24.1 SECONDS Partial Thromboplastin Ratio 0.9 Assessment & Plan This is an 87 year old F who has seen Dr. Silver garage door technician at [facility] as outpatient and as per outpatient chart review was started on amiodarone on because of palpitation symptoms and cardiology diagnosis include tachy- roque syndrome vs paroxysmal SVT, also has left bundle branch block Tachybrady syndrome. S/P dual chamber rate responsive permanent pacemaker done today tolerated procedure with no post op complication. Continue monitor in telemetry cardiology On board Paroxysmal supraventricular tachycardia. Rate controlled Metoprolol increase to 25mg BID and amiodarone increased to 200mg QID Cardio on board ECHO SHOWED * Rhythm during examination was sinus with underlying LBBB along with salvos of SVT and sinus pauses. * Normal LV chamber size and wall thickness. * Normal LV systolic function, EF 55-60%. * No segmental left ventricular wall motion abnormalities are noted. * Grade I diastolic dysfunction. * Aortic valve sclerosis mild, without significant aortic valvular stenosis. * Mild mitral regurgitation. * Trace tricuspid regurgitation. * Mild left atrial enlargement. Hypertension. BP stable now Continue monitor BP Hypothyroidism TSH WNL Continue levothyroxine Macular degeneration Had recent eyes procedure done Continue Tobramycin and dexamethasone DVT ppx on SCD ( due to recent procedure) Full code Current Inpatient Medications: Current Inpatient Medications Medications (Trade) Dose Ordered Sig/Danielle Route Start Time Stop Time Status Last Admin Dose Admin Levothyroxine Sodium (Synthroid Tab) 88 mcg DAILYBB PO 05/05/17 07:00 06/04/17 06:59 05/05/17 08:55 88 MCG Amiodarone HCl (Cordarone Tab) 200 mg QID PO 05/05/17 17:00 06/04/17 08:59 Metoprolol Succinate (Toprol Xl Tab) 25 mg BID PO 05/05/17 21:00 06/04/17 08:59
[2017-05-05] MEDS: AMIODARONE 200 MG TAB PO SCH ×2 (17:29→21:17)
[2017-05-05] MEDS ORDERED: TRAMADOL HCL 50 MG TAB PO PRN ×2 (17:30→19:30)
[2017-05-05] MEDS: ACETAMINOPHEN 325 MG TAB PO PRN (19:54)
[2017-05-05] MEDS ORDERED: LORAZEPAM 0.5 MG TAB PO SCH (21:00)
[2017-05-05] MEDS: METOPROLOL SUCC 25MG EXT REL TAB PO SCH (21:17)
[2017-05-06 03:35] VITALS: BP 147/78; PULSE 60; TEMP 36.9; O2SAT 91
[2017-05-06] MEDS: LEVOTHYROXINE 88 MCG TAB PO SCH (05:38)
[2017-05-06 06:10] LABS: MEAN CELL VOLUME 89.1 fL (80-100); MEAN CORPUSCULAR HEMOGLOBIN 30.5 pg (25-34); MEAN CORPUSCULAR HGB CONC 34.3 g/dl (32-36); MEAN PLATELET VOLUME 10.4 fL (7.4-10.4); PLATELET COUNT 180 K/uL (130-400); RED CELL DISTRIBUTION WIDTH CV 13.3 % (11.5-14.5); RED CELL DISTRIBUTION WIDTH SD 43.8 fL (36.4-46.3); WHITE BLOOD COUNT 6.93 K/uL (4.8-10.8)
[2017-05-06 06:41] LABS: CALCIUM 8.4 mg/dl (8.5-10.1); CREATININE 1.11 mg/dl (0.60-1.20); POTASSIUM 3.6 mmol/L (3.5-5.1)
--- NOTE | 2017-05-06 07:27 | DIAGNOSTIC IMAGING REPORT ---
CHEST 2 VIEWS ROUTINE CLINICAL HISTORY: 87 years-old Female presenting with EXACT TIME ORDERED Evaluate for pneumothorax and lead placement. TECHNIQUE: PA and lateral views of the chest were obtained. COMPARISON: 05/05/2017. FINDINGS: Left subclavian pacer with leads in the right atrium and right ventricular apex. Atherosclerosis of the aortic arch. Cardiac silhouette top normal in size. Lungs mildly hyperinflated. Diffuse coarsening of lung markings with relative radiolucency of the upper lobes. Calcified granuloma noted at the left apex. Significant interval decrease in bibasilar opacities. Slight blunting of the bilateral costophrenic angles could be due to hyperinflation. No large pleural effusion or pneumothorax. Degenerative changes of the thoracic spine. Numerous external leads overlie the upper abdomen degrading evaluation in this region. IMPRESSION: 1. Significant interval decrease in bibasilar opacity suggesting resolving pulmonary edema or aspiration pneumonitis. 2. Findings suggest possible underlying emphysema. Electronically signed by: Ramesh Camargo M.D. 05/06/2017 7:25 AM Dictated Date/Time: 05/06/2017 7:24 AM
[2017-05-06 07:43] VITALS: BP 159/77; PULSE 66; TEMP 36.9; O2SAT 95
[2017-05-06] MEDS: METOPROLOL SUCC 25MG EXT REL TAB PO SCH (08:33)
[2017-05-06] MEDS: ACETAMINOPHEN 325 MG TAB PO PRN ×2 (08:34→14:17)
--- NOTE | 2017-05-06 08:50 | Cardiology Follow-Up ---
Subjective Subjective Date of Service: May 06, 2017. Pt evaluation today including: conversation w/ patient, physical exam, chart review, lab review, review of studies, review of inpatient medication list Additional Details: Pt seen and examined, states that she's feeling well. Feels more strength today. No lightheadedness or dizziness overnight. Palpitations significantly improved as well. Denies cp or sob. Some soreness of shoulder. Tele reviewed: sinus rhythm with competing paced rhythm. Frequent atrial ectopy as well. No sustained arrhythmias. Problem List Medical Problems: (1) CHF (congestive heart failure) Status: Acute (2) Hypoxia Status: Acute (3) Tachy-roque syndrome Status: Acute Review of Systems Respiratory: No see HPI, No cough, No sputum, No wheezing, No shortness of breath, No dyspnea on exertion, No dyspnea at rest, No hemoptysis, No problem reported Cardiac: No see HPI, No chest pain, No orthopnea, No PND, No edema, No claudication, No palpitations, No problem reported Objective Vital Signs Last Vital Signs Documentation Date Time Temp Pulse Resp B/P (MAP) Pulse Ox O2 Delivery O2 Flow Rate FiO2 05/06/17 07:43 36.9 66 18 159/77 (104) 95 05/06/17 04:02 Room Air 05/05/17 12:30 4 Physical Exam: General Appearance: WD/WN, no apparent distress Eyes: bilateral eyes normal inspection, bilateral eyes PERRL, bilateral eyes EOMI ENT: normal ENT inspection, hearing grossly normal, pharynx normal Neck: supple, no adenopathy, thyroid normal, no JVD, no carotid bruits, trachea midline Respiratory/Chest: chest non-tender, lungs clear, normal breath sounds, no respiratory distress, no accessory muscle use Cardiovascular: regular rate, rhythm, no edema, no JVD, no murmur, + gallop/S4 Abdomen: normal bowel sounds, non tender, soft, no organomegaly, no pulsatile mass Extremities: normal inspection, no pedal edema, no calf tenderness Neurologic/Psychiatric: assistant II-XII nml as tested, no motor/sensory deficits, alert, normal mood/affect, oriented x 3 Skin: normal color, warm/dry, no rash Lymphatic: no adenopathy Assessment and Plan 1. tachy roque syndrome s/p dual chamber ppm placement tolerated well appropriately functioning device will now attempt to uptitrate medications to suppress SVT activity metoprolol succinate doubled to bid, will hold off on further uptitration for now amio initially increased but did have an issue with thyroid function in the past will decrease amio to 200mg bid will arrange for close follow up as outpatient for further medication titration my office will call to arrange f/u with Dr. Silver in 2-3 weeks 2. shoulder soreness likely due to positioning with hx of rotator cuff issues heat packs prn along with analgesics ok to d/c to home from cardiac standpoint
[2017-05-06] MEDS ORDERED: AMIODARONE 200 MG TAB PO SCH (09:00)
--- NOTE | 2017-05-06 10:26 | Clinical Documentation Query ---
CLINICAL DOCUMENTATION QUERY 87 yo female presented with increased SOB and chest pressure. Patient had rales bilateral lungs, CXR = pulmonary vascular congestion consistent with CHF, and was given Lasix 40mg IV. Echo showed EF = 55-60%, mild left atrial enlargement, and grade I diastolic dysfunction. In your clinical opinion is this patient being managed for: ( ) Acute diastolic CHF, resolved ( ) Not Agree ( ) Other explanation of clinical findings (Please Explain) ( ) Unable to determine (Please Define) ( ) Need to Discuss The medical record reflects the following clinical findings, treatment, and risk factors. Clinical Indicators: As above Treatment: Lasix 40mg IV, O2 Risk Factors: Age, tachybrady syndrome, paroxysmal SVT, HTN Please clarify and document your clinical opinion in the progress notes and discharge summary. Terms such as "probable", "suspected", "likely", "questionable", "possible", or "still to be ruled out" are acceptable. IF IN AGREEMENT, YOU MUST DOCUMENT ABOVE DIAGNOSTIC STATEMENT IN DAILY PROGRESS NOTES AND DISCHARGE SUMMARY. This document is not part of the patient's record. Thank You, Ly Frazier RN [phone]
[2017-05-06 11:59] VITALS: BP 161/74; PULSE 65; TEMP 36.9; O2SAT 96
[2017-05-06 15:37] VITALS: BP 116/62; PULSE 74; TEMP 36.8; O2SAT 99
--- NOTE | 2017-05-06 16:17 | Discharge Instructions ---
Discharge Instructions Date of Service May 06, 2017. Admission Reason for Admission: Heart Palpitations, Sob Discharge Discharge Diagnosis / Problem: Tachybrady syndrome, Paroxysmal supraventricular tachycardia Discharge Goals Goal(s): Decrease discomfort, Improve function, Improve disease control Activity Recommendations Activity Limitations: resume your previous activity (as tolerated) . Instructions / Follow-Up Instructions / Follow-Up Follow up with Dr. Haile on 05/12 @ 1:45 PM Follow up with cardiology on 05/19 @ 3:45PM Check TSH Metoprolol changed to 25 mg twice a day Amiodarone changed to 200 mg twice a day Keep the incision site clean and dry for the next few days (you may shower, but need to keep the affected site dry). No driving for at least 1 week or longer until instructing by your physician Limit heavy lifting with the involved arm for at least 4 weeks Avoid Extreme motion with the involved arm shoulder for 4-6 weeks after device implantation ( activities such as swimming and golf); this could result in lead dislodgement. Avoid placing your cellular phone directly over your device generator. Try to keep it at least 6 inches away from your device. Do not carry your cellular phone in your shirt pocket when not in use. You will be given an ID card that contains information about your pacemaker. Magnetic resonance imaging (MRI) scans should be avoided unless your physician deems otherwise Current Hospital Diet Patient's current hospital diet: AHA Diet (Heart Healthy) Discharge Diet Recommended Diet: AHA Diet (Heart Healthy) Procedures Procedures Performed: dual chamber rate responsive permanent pacemaker under fluroscopic guidance Pending Studies Studies pending at discharge: no Medical Emergencies . Who to Call and When: Medical Emergencies: If at any time you feel your situation is an emergency, please call 911 immediately. . Non-Emergent Contact Non-Emergency issues call your: Primary Care Provider, Charge Attendant Call Non-Emergent contact if: your pain is not controlled, you have any medication questions . . "Provider Documentation" section prepared by Melissa Rivera. .
[2017-05-06] MEDS ORDERED: TPRSR25 PO ×3 (16:21→16:38)
[2017-05-06] MEDS ORDERED: ACET-1047 PO ×3 (16:21→16:38)
[2017-05-06] MEDS ORDERED: AMIO200T4 PO ×3 (16:21→16:38)
[2017-05-06 16:26] VITALS: BP 116/62; PULSE 74; TEMP 36.8; O2SAT 99
--- NOTE | 2017-05-06 17:03 | Progress Note ---
Medicine Progress Note Date & Time of Visit: May 06, 2017 at 16:39. Subjective Pt was seen and examined Lying in bed with no distress Pt said that she feels fine Pt walked in the hallway with no distress She said that pain around the pacemaker incision improved Denies any chest pain, palpitation, dizziness and SOB Objective Last 8 Hrs Date Time Temp Pulse Resp B/P (MAP) Pulse Ox O2 Delivery O2 Flow Rate FiO2 05/06/17 16:26 36.8 74 16 99 Room Air 05/06/17 16:00 Room Air 05/06/17 15:37 36.8 74 16 116/62 (80) 99 05/06/17 12:00 Room Air 05/06/17 11:59 36.9 65 18 161/74 (103) 96 Physical Exam: General- No acute distress Head- atraumatic Eyes- PERRL, EOMI ENT- oropharynx clear Neck- supple, no JVD Lungs- clear to auscultation Heart- +murmur, Irregular Abdomen- normal bowel sounds, soft Extremities- no calf tenderness Neuro- alert, oriented x 3; PERRL, EOMI Skin- warm & dry Laboratory Results: Last 24 Hours Test 05/06/17 05:32 White Blood Count 6.93 K/uL Red Blood Count 3.93 M/uL Hemoglobin 12.0 g/dL Hematocrit 35.0 % Mean Corpuscular Volume 89.1 fL Mean Corpuscular Hemoglobin 30.5 pg Mean Corpuscular Hemoglobin Concent 34.3 g/dl RDW Standard Deviation 43.8 fL RDW Coefficient of Variation 13.3 % Platelet Count 180 K/uL Mean Platelet Volume 10.4 fL Sodium Level 137 mmol/L Potassium Level 3.6 mmol/L Chloride Level 102 mmol/L Carbon Dioxide Level 29 mmol/L Anion Gap 6.0 mmol/L Blood Urea Nitrogen 25 mg/dl Creatinine 1.11 mg/dl Est Creatinine Clear Calc Drug Dose 32.0 ml/min Estimated GFR () 52.4 Estimated GFR (Non- 45.2 BUN/Creatinine Ratio 22.9 Random Glucose 88 mg/dl Calcium Level 8.4 mg/dl Assessment & Plan This is an 87 year old F who has seen Dr. Silver rn urgent care at [facility] as outpatient and as per outpatient chart review was started on amiodarone on because of palpitation symptoms and cardiology diagnosis include tachy- roque syndrome vs paroxysmal SVT, also has left bundle branch block Tachybrady syndrome. S/P dual chamber rate responsive permanent pacemaker done today tolerated procedure with no post op complication. Continue monitor in telemetry HR has been stable cardiology On board Paroxysmal supraventricular tachycardia. Rate controlled Metoprolol increase to 25mg BID and amiodarone changed to 200mg BID OK from cardiac standpoint to discharge home Follow up with cardiology on 05/19 ECHO SHOWED * Rhythm during examination was sinus with underlying LBBB along with salvos of SVT and sinus pauses. * Normal LV chamber size and wall thickness. * Normal LV systolic function, EF 55-60%. * No segmental left ventricular wall motion abnormalities are noted. * Grade I diastolic dysfunction. * Aortic valve sclerosis mild, without significant aortic valvular stenosis. * Mild mitral regurgitation. * Trace tricuspid regurgitation. * Mild left atrial enlargement. Hypertension. BP stable Continue monitor BP Hypothyroidism TSH WNL Continue levothyroxine Macular degeneration Had recent eyes procedure done Continue Tobramycin and dexamethasone DVT ppx on SCD ( due to recent procedure) Full code Disposition Discharge home today with home health services Current Inpatient Medications: Current Inpatient Medications Medications (Trade) Dose Ordered Sig/Danielle Route Start Time Stop Time Status Last Admin Dose Admin Levothyroxine Sodium (Synthroid Tab) 88 mcg DAILYBB PO 05/05/17 07:00 06/04/17 06:59 05/06/17 05:38 88 MCG Metoprolol Succinate (Toprol Xl Tab) 25 mg BID PO 05/05/17 21:00 06/04/17 08:59 05/06/17 08:33 25 MG Tramadol HCl (Ultram Tab) @ Q6H PRN PO 05/05/17 19:30 06/04/17 17:29 05/06/17 00:43 50 MG Acetaminophen (Tylenol Tab) 650 mg Q6H PRN PO 05/05/17 19:30 06/04/17 19:29 05/06/17 14:17 650 MG Lorazepam (Ativan Tab) 0.5 mg HS PO 05/05/17 21:00 06/04/17 20:59 05/05/17 21:17 0.5 MG Amiodarone HCl (Cordarone Tab) 200 mg BID PO 05/06/17 09:00 06/04/17 08:59 05/06/17 09:52 200 MG
--- NOTE | 2017-05-07 07:55 | EDITING REQUIRED CODING QUERY ---
CONGESTIVE HEART FAILURE To Promote full compliance with coding requirements relating to patient care, physician participation is requested in all cases of auditing coder uncertainty. Please assist us with the following questions. A diagnosis of Congestive Heart Failure is documented in the patient's medical record. To accurately code this diagnosis and to compare patient severity, we ask that you specify the type of heart failure by placing an X within the parenthesis (x). 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 Please check the appropriate box: ( ) Present on Admission ( x ) Not Present On Admission ( ) Clinically undetermined Thank you Riya Kiser
--- NOTE | 2017-05-09 07:25 | Discharge Summary ---
Discharge Summary Date of Service May 09, 2017. Discharge Summary Admission Date: May 05, 2017 at 05:52 Discharge Date: May 06, 2017 Discharge Disposition: Home with services Principal Diagnosis: Tachybrady syndrome. Secondary Diagnoses/Problems: Paroxysmal supraventricular tachycardia Hypertension Hypothyroidism Macular degeneration Procedures: S/P dual chamber rate responsive permanent pacemaker ECHO Interpretation Summary * Name: PABLO OSORIO Study Date: 05/05/2017 09:14 AM BP: 175/81 mmHg * Patient Location: [facility]\\S\\1 HR: 84 * : 1930 (M/d/yyyy) Gender: Female Height: 64 in * Age: 87 yrs Ethnicity: [place] Weight: 159 lb * Ordering Physician: Angelo Viera * Referring Physician: Self, Referred * Performed By: Danica Laura RCS * * Reason For Study: Tachy-Niles * BSA: 1.8 m2 * -- Conclusions -- * Rhythm during examination was sinus with underlying LBBB along with salvos of SVT and sinus pauses. * Normal LV chamber size and wall thickness. * Normal LV systolic function, EF 55-60%. * No segmental left ventricular wall motion abnormalities are noted. * Grade I diastolic dysfunction. * Aortic valve sclerosis mild, without significant aortic valvular stenosis. * Mild mitral regurgitation. * Trace tricuspid regurgitation. * Mild left atrial enlargement. Procedure Details * A complete two-dimensional transthoracic echocardiogram was performed (2D, M- mode, Doppler and color flow Doppler). Left Ventricle * The left ventricle is normal in size. * There is normal left ventricular wall thickness. * Left ventricular systolic function is normal. * No segmental left ventricular wall motion abnormalities are noted. * Ejection Fraction = 55-60%. * The left ventricular wall motion is normal. Right Ventricle * The right ventricular cavity size is normal (basal dimension <4.2 cm in right ventricular apical 4-chamber view). * The right ventricular systolic function is normal as assessed by tricuspid annular plane systolic excursion (TAPSE) (normal >1.5 cm). Atria * The left atrium is mildly dilated. * Right atrial size is normal. * No ASD detected; PFO is not assessed. Mitral Valve * The mitral valve leaflets appear thickened, but open well. * There is no mitral valve stenosis. * There is mild mitral regurgitation. Tricuspid Valve * The tricuspid valve anatomy is normal. * There is no tricuspid stenosis. * There is trace tricuspid regurgitation. Aortic Valve * The aortic valve is trileaflet. * Aortic valve sclerosis mild, without significant aortic valvular stenosis. Pulmonic Valve * The pulmonary valve is not well seen, but the Doppler examination is normal without significant regurgitation or stenosis. Great Vessels * The aortic root and proximal ascending aorta are normal sized. Pericardium/Pleural * There is no pericardial effusion. Left Ventricular Diastolic Function * Grade I diastolic dysfunction, (abnormal relaxation pattern). Medication Reconciliation New Medications: Acetaminophen (Mapap) 325 Mg Tab 650 MG PO Q8H PRN for Pain, #30 TAB Metoprolol Succinate (Metoprolol Succinate ER) 25 Mg Tabcr 25 MG PO BID for 30 Days, #60 TAB Continued Medications: Pondera (Pondera) Unknown Strength Tab 9 TABS PO DAILY Amiodarone Hcl (Cordarone) 200 Mg Tab 200 MG PO BID for 30 Days, #60 TABS (This prescription has been renewed) Calcium W/ Magnesium (Calcium & Magnesium) 1 Tab Tab 1 TAB PO TID Levothyroxine Sodium (Levothyroxine Sodium) 88 Mcg Tab 1 TAB PO DAILY, TAB 3 Refills Lorazepam (Lorazepam) 0.5 Mg Tab 0.5 MG PO x63-50qo PRN for anxiety/stress Multiple Vitamins W/ Minerals (Icaps Areds Formula) 1 Tab Tab 1 TAB PO BID Multivitamin (Multivitamin) Tab 1 TAB PO QAM Rizatriptan Benzoate (Rizatriptan Benzoate) 5 Mg Tab 5 MG PO UD PRN for Migraine 1 tab for onset of migraine, may repeat every 2 hrs up to 2 times. max of 3 tabs in 24 hrs Tobramycin-Dexamethasone (Tobradex 0.3% Oph Susp) 1 Rula Rula DROP OPR UD instill 1 drop right eye 4 times a day for 1 week, then 1 drop right eye twice daily for 1 week then discontinue Discontinued Medications: Metoprolol Succinate (Toprol Xl) 25 Mg Tabcr 25 MG PO DAILY, #30 TAB Admission Information HPI (per Admitting provider): This is an 87 year old F who has seen Dr. Silver tearoom hostess at [facility] as outpatient and as per outpatient chart review was started on amiodarone on 3/ 21/18 because of palpitation symptoms and cardiology diagnosis include tachy- niles syndrome vs paroxysmal SVT, also has left bundle branch block. Since the cardiology outpatient patient, patient has been taking both metoprolol succinate 25 mg daily and amiodarone 200 mg daily. As per review of Dr. Silver's notes the outpatient plan was to have patient return as outpatient for resting echocardiogram, return for a 24 hour Holter monitor on 05/18/2017, return to see Dr. Patel of electrophysiology in consultation in May to review Holter monitor results are then to re-evaluate for further medication changes or possible pacemaker Patient had acute symptoms of waking up at 2AM on 05/05/17 with perspiration, walked to the bathroom and felt shortness of breath, heart pounding, chest tightness and heaviness, and subsequently called for the ambulance patient reports taking aspirin and nitro sublingual on the ambulance ride with relief of symptoms in the ED patient's heart rhythm irregular but heart rate became better controlled while in the ED ED physician gave patient 40 mg of IV Lasix and asked hospitalist medical doctor for evaluation and admission when examined by hospitalist medical doctor, patient denies feeling previous reported symptoms currently Physical Exam (per Admitting): General Appearance: no apparent distress Head: normocephalic, atraumatic Eyes: normal inspection, EOMI, sclerae normal ENT: normal ENT inspection, hearing grossly normal, pharynx normal Neck: supple, no adenopathy, no JVD, trachea midline Respiratory/Chest: chest non-tender, lungs clear, normal breath sounds, no respiratory distress, no accessory muscle use Cardiovascular: no edema, no JVD, normal peripheral pulses, + abnormal rhythm Abdomen/GI: normal bowel sounds, non tender, soft, no organomegaly, no pulsatile mass Back: normal inspection, no muscle spasm, normal range of motion Extremities/Musculoskelatal: normal inspection, no calf tenderness, normal capillary refill, no pedal edema, normal range of motion, non-tender Neurologic/Psych: technical supervisor II-XII nml as tested, no motor/sensory deficits, alert , normal mood/affect, oriented x 3 Skin: normal color, warm/dry, no rash Hospital Course This is an 87 year old F who has seen Dr. Silver tearoom hostess at [facility] as outpatient and as per outpatient chart review was started on amiodarone on because of palpitation symptoms and cardiology diagnosis include tachy- niles syndrome vs paroxysmal SVT, also has left bundle branch block Tachybrady syndrome. S/P dual chamber rate responsive permanent pacemaker done tolerated procedure with no post op complication. Continue monitor in telemetry HR has been stable cardiology On board Paroxysmal supraventricular tachycardia. Rate controlled Metoprolol increase to 25mg BID and amiodarone changed to 200mg BID OK from cardiac standpoint to discharge home Follow up with cardiology on 05/19 ECHO SHOWED * Rhythm during examination was sinus with underlying LBBB along with salvos of SVT and sinus pauses. * Normal LV chamber size and wall thickness. * Normal LV systolic function, EF 55-60%. * No segmental left ventricular wall motion abnormalities are noted. * Grade I diastolic dysfunction. * Aortic valve sclerosis mild, without significant aortic valvular stenosis. * Mild mitral regurgitation. * Trace tricuspid regurgitation. * Mild left atrial enlargement. Hypertension. BP stable Continue monitor BP Hypothyroidism TSH WNL Continue levothyroxine Macular degeneration Had recent eyes procedure done Continue Tobramycin and dexamethasone DVT ppx on SCD ( due to recent procedure) Full code Disposition Discharge home today with home health services Total time spent on discharge = 35 minutes This includes examination of the patient, discharge planning, medication reconciliation, and communication with other providers. Discharge Instructions Discharge Instructions Date of Service May 06, 2017. Admission Reason for Admission: Heart Palpitations, Sob Discharge Discharge Diagnosis / Problem: Tachybrady syndrome, Paroxysmal supraventricular tachycardia Discharge Goals Goal(s): Decrease discomfort, Improve function, Improve disease control Activity Recommendations Activity Limitations: resume your previous activity (as tolerated) . Instructions / Follow-Up Instructions / Follow-Up Follow up with Dr. Haile on 05/12 @ 1:45 PM Follow up with cardiology on 05/19 @ 3:45PM Check TSH Metoprolol changed to 25 mg twice a day Amiodarone changed to 200 mg twice a day Keep the incision site clean and dry for the next few days (you may shower, but need to keep the affected site dry). No driving for at least 1 week or longer until instructing by your physician Limit heavy lifting with the involved arm for at least 4 weeks Avoid Extreme motion with the involved arm shoulder for 4-6 weeks after device implantation ( activities such as swimming and golf); this could result in lead dislodgement. Avoid placing your cellular phone directly over your device generator. Try to keep it at least 6 inches away from your device. Do not carry your cellular phone in your shirt pocket when not in use. You will be given an ID card that contains information about your pacemaker. Magnetic resonance imaging (MRI) scans should be avoided unless your physician deems otherwise Current Hospital Diet Patient's current hospital diet: AHA Diet (Heart Healthy) Discharge Diet Recommended Diet: AHA Diet (Heart Healthy) Procedures Procedures Performed: dual chamber rate responsive permanent pacemaker under fluroscopic guidance Pending Studies Studies pending at discharge: no Medical Emergencies . Who to Call and When: Medical Emergencies: If at any time you feel your situation is an emergency, please call 911 immediately. . Non-Emergent Contact Non-Emergency issues call your: Primary Care Provider, Glaucoma Specialist Call Non-Emergent contact if: your pain is not controlled, you have any medication questions . . "Provider Documentation" section prepared by Melissa Rivera. . Additional Copies To Gadiel Haile D.O.
== END 2017-05-06 17:10 | disposition home health service (06) | DRG 243 ==
LOC: EDBD 04:12 → C.EDB 04:13 → C.MED 05:52 → ENRESERV 06:02 → C.2T 12:53
PROVIDERS: ADMIT Hospitalist; ATTEND Internal Medicine
PROC: 0JH636Z Insertion of Pacemaker, Dual Chamber into Chest Subcutaneous Tissue and Fascia, Percutaneous Approach (ICD-10-PCS; principal; 2017-05-05 11:20)
PROC: 02HK3JZ Insertion of Pacemaker Lead into Right Ventricle, Percutaneous Approach (ICD-10-PCS; principal; 2017-05-05 11:20)
PROC: 02H63JZ Insertion of Pacemaker Lead into Right Atrium, Percutaneous Approach (ICD-10-PCS; principal; 2017-05-05 11:20)
DX: I49.5 Sick sinus syndrome (principal); I47.1 Supraventricular tachycardia; I50.9 Heart failure, unspecified; M81.0 Age-related osteoporosis without current pathological fracture; I11.0 Hypertensive heart disease with heart failure; I35.0 Nonrheumatic aortic (valve) stenosis; I44.7 Left bundle-branch block, unspecified; I34.1 Nonrheumatic mitral (valve) prolapse; H35.30 Unspecified macular degeneration; M19.90 Unspecified osteoarthritis, unspecified site; Z98.49 Cataract extraction status, unspecified eye; Z90.10 Acquired absence of unspecified breast and nipple; Z96.642 Presence of left artificial hip joint; Z90.710 Acquired absence of both cervix and uterus; Z88.5 Allergy status to narcotic agent

== ENCOUNTER 2018-01-19 07:31 | Inpatient (IN) ==
[2018-01-19 08:40] LABS: Basophils # (auto) 0.06 K/uL (0-0.2); Eosinophils # (auto) 0.41 K/uL (0-0.5); Hematocrit (blood only) 44.8 % (37-47); Hemoglobin 15.2 g/dL (12.0-16.0); Lymphocytes # (auto) 2.08 K/uL (1.2-3.4); Lymphocytes % (auto) 35.4 %; Mean Corpuscular Hgb Conc 33.9 g/dL (32-36); Mean Corpuscular Volume 92.9 fL (80-100); Mean Platelet Volume 11.3 fL (7.4-10.4); Monocytes # (auto) 0.51 K/uL (0.11-0.59); Monocytes % (auto) 8.7 %; Neutrophils # (auto) 2.82 K/uL (1.4-6.5); Neutrophils % (auto) 47.9 %; Platelet Count 263 K/uL (130-400); RDW Coefficient of Variation 13.4 % (11.5-14.5); RDW Standard Deviation 45.4 fL (36.4-46.3); Red Blood Count 4.82 M/uL (4.2-5.4); White Blood Count 5.88 K/uL (4.8-10.8)
[2018-01-19 08:47] LABS: Partial Thromboplastin Ratio 1.1; Partial Thromboplastin Time 27.5 Seconds (21.0-31.0); Prothrombin Time 10.2 Seconds (9.0-12.0)
--- NOTE | 2018-01-19 08:48 | XRay Report ---
XR chest 1V portable CLINICAL HISTORY: SOB, chest pain COMPARISON STUDY: 11/23/2017 FINDINGS: The heart is enlarged. There is mild interstitial edema. There is no focal pulmonary consol idation. There is a left subclavian dual-chamber central venous pacemaker. There are no significant p leural effusions.[ There is left shoulder calcific tendinitis. IMPRESSION: 1. Mild interstitial edema, likely on a cardiogenic basis. Electronically signed by: Valentin Thomas M.D. 01/19/2018 8:47 AM
[2018-01-19 09:01] LABS: BUN Creatinine Ratio 14.8 (10-20); Blood Urea Nitrogen 17 mg/dl (7-18); Calcium 9.4 mg/dl (8.5-10.1); Carbon Dioxide 29 mmol/L (21-32); Chloride 100 mmol/L (98-107); Creatinine Clr Calc Pharmacy 30.3 ml/min; Est GFR (African American) 50.8; Est GFR (Non-African American) 43.8; Glucose 105 mg/dl (70-99); Sodium 137 mmol/L (136-145)
[2018-01-19 09:03] LABS: Creatine Kinase MB 1.8 ng/ml (0.5-3.6); Troponin I < 0.015 ng/ml (0-0.045)
--- NOTE | 2018-01-19 10:38 | Emergency Department Note ---
ED Visit Note This patient was seen in concert with Dr. Jas Prater and we discussed and agreed upon the history, physical, assessment and plan. .
[2018-01-19] MEDS ORDERED: AMIODARONE 200 MG TAB PO SCH (11:05)
--- NOTE | 2018-01-19 11:08 | History & Physical Report ---
Date of Service January 19, 2018 Assessment & Plan (1) Acute respiratory failure: (2) Chest pain: This is a 87yo F with a PMH of HTN, tachy-roque syndrome s/p pacemaker placement in April 2017, LBBB, CKD III, anxiety and other medical problems listed below who presents with chest pain and shortness of breath since this morning. -Hypoxic at 87% initially, now 94% on 2L NC. Chest pain has resolved -EKG with demand atrial pacing with prolonged conduction and left bundle branch block (chronic). No acute ST changes -Initial troponin negative. Continue trending -CXR with mild interstitial edema, likely on a cardiogenic basis. No evidence of opacity or overt failure -BNP mildly elevated at 1805. Suspect decompensated CHF vs. side effect of amiodarone contributing to acute respiratory failure -Echo from 04/26 (pre-pacemaker placement) with normal EF of 55-60%, no wall motion abnormalities, grade 1 diastolic dysfunction and mild aortic sclerosis -Repeat routine echo. Give 40mg IV Lasix x 1. If no improvement of respiratory symptoms, consider PE work-up -Normal PM interrogation in December 2017. Repeat interrogation -Repeat EKG in am -Consult cardiology (3) CKD (chronic kidney disease), stage III: Kidney function at baseline. Continue monitoring (4) H/O tachycardia-bradycardia syndrome: (5) S/P placement of cardiac pacemaker: EKG with demand atrial pacing with prolonged conduction and left bundle branch block (chronic) -Pacemaker interrogation ordered (6) LEENA (generalized anxiety disorder): At baseline. Continue PRN diazepam (usually only takes HS) (7) HTN (hypertension): Normotensive. Continue home Toprol DVT Ppx: SQ heparin Code status: FULL code, as discussed with patient PCP: Catie Haile Dispo: Admitted to telemetry. Plan to return home once medically stable. Patient seen in collaboration with Dr. Palacios. Please see addendum. History of Present Illness Chief Complaint: chest pain, SOB Primary Care Provider: Gadiel Haile This is a 87yo F with a PMH of HTN, tachy-roque syndrome s/p pacemaker placement in April 2017, LBBB, CKD III, anxiety and other medical problems listed below who presents with chest pain and shortness of breath since this morning. Patient was in normal state of health until she woke up this morning around 5am to use the restroom and felt short of breath after walking back to bed. Also developed a central, substernal, non-radiating chest pressure. Noticed a "rattling" sound in her chest when she laid back down. Had difficulty catching her breath and it reminder her of her visit to the ED in April when she had her pacemaker placed. Called EMS and was given 2 ntg en route to hospital with complete resolution of chest pain. Upon arrival, was found to be hypoxic at 87% on room air, with saturation improving to 94% on 2L NC. Does not require home O2. Hemodynamically stable, no lab abnormalities. EKG with demand atrial pacing with prolonged conduction and left bundle branch block (chronic). No acute ST changes. Initial troponin negative. Endorses some orthopnea but denies any cough, PND or weight gain. No fever, chills, recent URI illness, palpitations, abdominal pain, nausea, vomiting, dysuria, diarrhea or constipation. Most recent echo was performed prior to pacemaker insertion in April 2017 with normal EF of 55-60%, no wall motion abnormalities, grade 1 diastolic dysfunction and mild aortic sclerosis. Normal PM interrogation in December 2017. Follows with Dr. Silver in clinic. Allergies Allergy/AdvReac Type Severity Reaction Status Date / Time oxycodone Allergy Unknown RASH Verified 01/19/18 08:51 Home Medications Home Medications Medication Instructions Recorded Confirmed Type Ca carb-Ca gluc-Mg ox-Mg gluco 1 tab PO TID 01/19/18 01/19/18 History [Calcium Magnesium] acetaminophen [Tylenol] 650 mg PO HS 01/19/18 01/19/18 History alfalfa 1,250 mg PO BID 01/19/18 01/19/18 History amiodarone 200 mg PO QAM 01/19/18 01/19/18 History aspirin 81 mg PO MOWEFR 01/19/18 01/19/18 History diazepam 1 tab PO Q12H PRN 01/19/18 01/19/18 History fluticasone [Flonase Allergy 2 spray INTRANASAL DAILY 01/19/18 01/19/18 History Relief] levothyroxine 88 mcg PO QAM 01/19/18 01/19/18 History metoprolol succinate 25 mg PO BID 01/19/18 01/19/18 History multivitamin 1 tab PO QAM 01/19/18 01/19/18 History rizatriptan 5 mg PO UD PRN 01/19/18 01/19/18 History vitamins A,C,V-ljql-ivefda [ICaps 1 cap PO BID 01/19/18 01/19/18 History AREDS] Past Med/Surg History Medical History CKD (chronic kidney disease), stage III (Chronic) LEENA (generalized anxiety disorder) (Chronic) H/O tachycardia-bradycardia syndrome (Chronic) Aortic valve sclerosis (Chronic) Osteoporosis (Chronic) LBBB (left bundle branch block) (Chronic) HTN (hypertension) (Chronic) Surgical History S/P placement of cardiac pacemaker (Chronic) H/O total hysterectomy (Resolved) History of nasal surgery (Resolved) History of partial mastectomy (Resolved) Hx of appendectomy (Resolved) Family History Other Heart disorder Stroke Social History Current Living Situation: Alone current occupational status: retired Other Information That Helps Us Care for You: No Feels Safe at Home: Yes Safety Concerns: Feels Safe At This Time Smoking Status: Never smoker Hx Alcohol Use: No Hx Substance Use: No Beliefs That Will Affect Care: None Preferred Language: Ethiopian Communication Ability: Effective Review of Systems All systems reviewed & are unremarkable except as noted in HPI & below Physical Exam 2 Vital Signs (Past 24 Hours): Last Vital Signs Temp 37.1 C 01/19/18 07:38 Pulse 65 01/19/18 10:47 Resp 18 01/19/18 10:47 BP 150/77 H 01/19/18 10:47 Pulse Ox 96 01/19/18 10:47 Physical Exam: General Appearance: WD/WN, no apparent distress, resting comfortably with 2L NC O2 Head: normocephalic, atraumatic Eyes: normal inspection, PERRL, EOMI ENT: hearing grossly normal, pharynx normal (moist mucous membranes) Neck: supple, no JVD, no adenopathy Respiratory/Chest: No chest wall tenderness. Lungs clear to auscultation. No wheezes, rales or rhonci. No respiratory distress or accessory muscle use Cardiovascular: regular rate, rhythm, no murmur appreciated, normal peripheral pulses Abdomen/GI: normal bowel sounds, soft, non-tender to palpation Extremities/Musculoskelatal: normal inspection, no calf tenderness, normal capillary refill, no pedal edema Neurologic/Psych: alert, normal mood/affect, oriented x 3 Skin: normal color, warm/dry Results & Data Laboratory Results Short CBC 01/19/18 Range/Units 07:15 WBC 5.88 (4.8-10.8) K/uL Hgb 15.2 (12.0-16.0) g/dL Hct 44.8 (37-47) % Plt Count 263 (130-400) K/uL BMP 01/19/18 07:15 Sodium 137 Potassium 4.0 Chloride 100 Carbon Dioxide 29 BUN 17 Creatinine 1.14 Glucose 105 H Calcium 9.4 Cardiac Enzymes 01/19/18 Range/Units 07:15 CK-MB (CK-2) 1.8 (0.5-3.6) ng/ml Troponin I < 0.015 (0-0.045) ng/ml Diagnostic Findings CXR: IMPRESSION: 1. Mild interstitial edema, likely on a cardiogenic basis. ECG Findings: + LBBB and + mobitz II block Change: no significant change Code Status & VTE Plan Code Status FUll code VTE Prophylaxis Plan VTE Prophylaxis will be ordered: Yes Supervising Physician Co-Signing Physician Notes Attending addendum: He is an 87-year-old female with significant past medical history of diastolic heart failure, chronic kidney disease, aortic valve sclerosis, hypertension and recent history of tachybradycardia syndrome status post pacemaker was admitted with increasing shortness of breath and there was noted to congestive heart failure The patient was seen and examined in telemetry unit She has been feeling a lot better following administration of Lasix She has seen by edge burnisher and went for an echo Clinically a lot better and wants to go home On examination Lying in bed comfortably without any symptoms Hemodynamically stable Chest-decreased breath sounds at the bases with minimal crackles no wheezing Heart-S1-S2 irregular with a 2/6 systolic murmur over precordium Abdomen-benign Admission labs and imaging studies noted Echo has been done but report pending Likely has acute diastolic heart failure Agree with assessment and plan as outlined above by Hugo Palacios
[2018-01-19] MEDS ORDERED: FUROSEMIDE 40 MG/4 ML VIAL IV ONE (12:41)
[2018-01-19] MEDS ORDERED: POLYETHYLENE (MIRALAX) 17 GM PACK PO PRN (12:41)
[2018-01-19] MEDS ORDERED: NITROGLYCERIN SL 0.4 MG/TAB TAB SL PRN (12:41)
--- NOTE | 2018-01-19 13:03 | Cardiology Consultation ---
Date of Consultation January 19, 2018 Assessment & Plan (1) Shortness of breath: (2) LBBB (left bundle branch block): (3) S/P placement of cardiac pacemaker: (4) H/O tachycardia-bradycardia syndrome: (5) Acute diastolic (congestive) heart failure: The patient is comfortable and stable. Cardiac markers are negative thus far however pro natruretic peptide is 1080. Chest x-ray has some mild changes. She has heart failure on the basis of diastolic dysfunction and chronic kidney disease. I will review the echocardiogram when it is complete. I suspect that this should be a short stay. History of Present Illness Attending Physician: Willie Palacios MD History of Present Illness This is an 87-year-old female with a history that includes left bundle branch block, aortic valve sclerosis, and pacemaker implantation due to tachybrady syndrome, likely atrial tachycardia. She was in her usual state of health this morning. She lives alone. She woke this morning and felt short of breath. She decided to come into the hospital. She has had no progressive shortness of breath or lower extremity edema leading up to her hospital admission. She had some chest heaviness this morning pain. No heart palpitations or tachycardia. Allergies Allergy/AdvReac Type Severity Reaction Status Date / Time oxycodone Allergy Unknown RASH Verified 01/19/18 08:51 Home Medications Home Medications Medication Instructions Recorded Confirmed Type Ca carb-Ca gluc-Mg ox-Mg gluco 1 tab PO TID 01/19/18 01/19/18 History [Calcium Magnesium] acetaminophen [Tylenol] 650 mg PO HS 01/19/18 01/19/18 History alfalfa 1,250 mg PO BID 01/19/18 01/19/18 History amiodarone 200 mg PO QAM 01/19/18 01/19/18 History aspirin 81 mg PO MOWEFR 01/19/18 01/19/18 History diazepam 1 tab PO Q12H PRN 01/19/18 01/19/18 History fluticasone [Flonase Allergy 2 spray INTRANASAL DAILY 01/19/18 01/19/18 History Relief] levothyroxine 88 mcg PO QAM 01/19/18 01/19/18 History metoprolol succinate 25 mg PO BID 01/19/18 01/19/18 History multivitamin 1 tab PO QAM 01/19/18 01/19/18 History rizatriptan 5 mg PO UD PRN 01/19/18 01/19/18 History vitamins A,C,E-cfgf-tgfhpo [ICaps 1 cap PO BID 01/19/18 01/19/18 History AREDS] Patient History Medical History CKD (chronic kidney disease), stage III (Chronic) LEENA (generalized anxiety disorder) (Chronic) H/O tachycardia-bradycardia syndrome (Chronic) Aortic valve sclerosis (Chronic) Osteoporosis (Chronic) LBBB (left bundle branch block) (Chronic) HTN (hypertension) (Chronic) Surgical History S/P placement of cardiac pacemaker (Chronic) H/O total hysterectomy (Resolved) History of nasal surgery (Resolved) History of partial mastectomy (Resolved) Hx of appendectomy (Resolved) Family History Other Heart disorder Stroke Social History Current Living Situation: Alone current occupational status: retired Other Information That Helps Us Care for You: No Feels Safe at Home: Yes Safety Concerns: Feels Safe At This Time Smoking Status: Never smoker Hx Alcohol Use: No Hx Substance Use: No Beliefs That Will Affect Care: None Preferred Language: [place] Islander Communication Ability: Effective Review of Systems Review of Systems: See HPI for pertinent positives. All other 10 point review of systems are negative. Physical Exam 2 Vital Signs (Past 24 Hours): Last Vital Signs Temp 36.7 C 01/19/18 13:00 Pulse 62 01/19/18 12:16 Resp 20 01/19/18 13:00 BP 142/72 H 01/19/18 13:00 Pulse Ox 94 01/19/18 13:00 Physical Exam: General: no acute distress and stated age Head: normocephalic, no masses, lesions, tenderness or abnormalities Eyes: conjunctiva are pink and non-injected, sclera clear Neck: supple, no adenopathy, no bruits, normal jugular venous pulse, no hepatojugular reflux Chest: normal shape and normal respiratory effort Lungs: clear to auscultation and percussion Cardiac Exam: - regular rate & rhythm, no murmurs gallops or rubs - normal S1, normal S2 Pulses: 2(+) throughout Abdomen: abdomen soft, non-tender, no abnormal masses and no hepatosplenomegaly Musculoskeletal: no gait disturbance, no joint inflammation, no deforming arthritis Extremities: no edema and no cyanosis Neuro: grossly normal exam Results & Data Laboratory Results Laboratory Results - last 24 hr 01/19/18 01/19/18 01/19/18 07:15 07:15 07:15 WBC 5.88 RBC 4.82 Hgb 15.2 Hct 44.8 MCV 92.9 MCH 31.5 MCHC 33.9 RDW Std Deviation 45.4 RDW Coeff of Lupe 13.4 Plt Count 263 MPV 11.3 H Immature Gran % (Auto) 0.0 Neut % (Auto) 47.9 Lymph % (Auto) 35.4 [place] % (Auto) 8.7 Eos % (Auto) 7.0 Baso % (Auto) 1.0 Immature Gran # (Auto) 0.00 Neut # (Auto) 2.82 Lymph # (Auto) 2.08 [place] # (Auto) 0.51 Eos # (Auto) 0.41 Baso # (Auto) 0.06 PT 10.2 INR 1.0 APTT 27.5 PTT Ratio 1.1 Sodium 137 Potassium 4.0 Chloride 100 Carbon Dioxide 29 Anion Gap 7.0 BUN 17 Creatinine 1.14 Est Cr Clr Drug Dosing 30.3 Est GFR ( Amer) 50.8 Est GFR (Non-Af Amer) 43.8 BUN/Creatinine Ratio 14.8 Glucose 105 H Calcium 9.4 CK-MB (CK-2) 1.8 Troponin I < 0.015 NT-Pro-B Natriuret Pep 01/19/18 07:15 WBC RBC Hgb Hct MCV MCH MCHC RDW Std Deviation RDW Coeff of Lupe Plt Count MPV Immature Gran % (Auto) Neut % (Auto) Lymph % (Auto) [place] % (Auto) Eos % (Auto) Baso % (Auto) Immature Gran # (Auto) Neut # (Auto) Lymph # (Auto) [place] # (Auto) Eos # (Auto) Baso # (Auto) PT INR APTT PTT Ratio Sodium Potassium Chloride Carbon Dioxide Anion Gap BUN Creatinine Est Cr Clr Drug Dosing Est GFR ( Amer) Est GFR (Non-Af Amer) BUN/Creatinine Ratio Glucose Calcium CK-MB (CK-2) Troponin I NT-Pro-B Natriuret Pep 1805 H Medications Administered Ca carb-Ca gluc-Mg ox-Mg gluco [Calcium Magnesium] 1 tab PO TID 01/19/18 [ History Confirmed 01/19/18] acetaminophen [Tylenol] 650 mg PO HS 01/19/18 [History Confirmed 01/19/18] alfalfa 1,250 mg PO BID 01/19/18 [History Confirmed 01/19/18] amiodarone 200 mg PO QAM 01/19/18 [History Confirmed 01/19/18] aspirin 81 mg PO MOWEFR 01/19/18 [History Confirmed 01/19/18] diazepam 1 tab PO Q12H PRN 01/19/18 [History Confirmed 01/19/18] fluticasone [Flonase Allergy Relief] 2 spray INTRANASAL DAILY 01/19/18 [History Confirmed 01/19/18] levothyroxine 88 mcg PO QAM 01/19/18 [History Confirmed 01/19/18] metoprolol succinate 25 mg PO BID 01/19/18 [History Confirmed 01/19/18] multivitamin 1 tab PO QAM 01/19/18 [History Confirmed 01/19/18] rizatriptan 5 mg PO UD PRN 01/19/18 [History Confirmed 01/19/18] vitamins A,C,J-pklk-ndibqa [ICaps AREDS] 1 cap PO BID 01/19/18 [History Confirmed 01/19/18] Home Medications Acetaminophen (Tylenol) 650 mg PO Q4H PRN PRN Reason: Pain or Fever Stop: 02/18/18 12:40 Amiodarone HCl (Cordarone) 200 mg PO QAM [facility] Stop: 02/18/18 11:04 Aspirin (Ecotrin) 81 mg PO MOWEFR [facility] Stop: 02/19/18 11:02 Diazepam (Valium) 2 mg PO Q12H PRN PRN Reason: Insomnia Stop: 02/18/18 12:40 Fluticasone Propionate (Flonase) 2 sprays YAS DAILY [facility] Stop: 02/19/18 08:59 Furosemide (Lasix) 40 mg IV NOW ONE Stop: 01/19/18 12:42 Heparin Sodium (Porcine) (Heparin Sodium (Porcine)) 5,000 units SQ Q8 [facility] Stop: 02/18/18 13:59 Levothyroxine Sodium (Synthroid) 88 mcg PO QAM [facility] Stop: 02/19/18 08:59 Metoprolol Succinate (Toprol Xl) 25 mg PO BID [facility] Stop: 02/18/18 12:40 Multivitamins (Multivitamin) 1 tab PO QAM [facility] Stop: 02/19/18 08:59 Nitroglycerin (Nitrostat) 0.4 mg SL UD PRN PRN Reason: Chest Pain Stop: 02/18/18 12:40 Non-Formulary Medication (Ca Carb-Ca Gluc-Mg Ox-Mg Gluco [Calcium Magnesium]) 1 tab PO TID [facility] Stop: 02/18/18 13:59 Non-Formulary Medication (Vitamins A,C,A-Auii-Rouyzc [Icaps Areds]) 1 cap PO BID [facility] Stop: 02/18/18 20:59 Polyethylene Glycol (Miralax Powder Packet) 17 gm PO DAILY PRN PRN Reason: Constipation Stop: 02/18/18 12:40
--- NOTE | 2018-01-19 14:01 | Emergency Department Note ---
Entered by Magalie Valera acting as a scribe for Jas Prater DO History of Present Illness General Chief complaint: Shortness of Breath/Dyspnea Stated complaint: SGORTNESS OF BREATH Time Seen by Provider: 01/19/18 07:43 Source: patient Mode of arrival: EMS Limitations: no limitations History of Present Illness Provider complaint: shortness of breath, chest pain Onset (ago): hour(s) 3 Location: chest Radiation: non-radiation Pain Consistency: + other (persistent) Maximum Pain Intensity: 2 Quality: + other (heaviness) Associated symptoms: + other (Associated symptoms: rales in chest. Denies: abdominal pain, night sweats); no fever/chills and no nausea/vomiting Treatments prior to arrival: other (2 nitroglycerin) The patient is an 87 year old female who presents to the Emergency Room with complaints of persistent SOB and chest pain beginning 3 hours ago. She describes the pain as a heaviness, and notes it does not radiate outside her chest. The patient notes she began experiencing the shortness of breath when she woke up to use the bathroom this morning. She reports she got back into bed , and felt she heard rales in her chest, which did not resolve after coughing. The patient denies fevers, chills, night sweats, abdominal pain, nausea, or vomiting. She reports she was seen in the ED 10 months ago for roque-tachy arrhythmia, and was diagnosed with CHF and had a pacemaker placed at that time. The patient was given 2 nitroglycerin by EMS en route to the ED, but her chest pain persists. Home Medications Home Medications Medication Instructions Recorded Confirmed Type Ca carb-Ca gluc-Mg ox-Mg gluco 1 tab PO TID 01/19/18 01/19/18 History [Calcium Magnesium] acetaminophen [Tylenol] 650 mg PO HS 01/19/18 01/19/18 History alfalfa 1,250 mg PO BID 01/19/18 01/19/18 History amiodarone 200 mg PO QAM 01/19/18 01/19/18 History aspirin 81 mg PO MOWEFR 01/19/18 01/19/18 History diazepam 1 tab PO Q12H PRN 01/19/18 01/19/18 History fluticasone [Flonase Allergy 2 spray INTRANASAL DAILY 01/19/18 01/19/18 History Relief] levothyroxine 88 mcg PO QAM 01/19/18 01/19/18 History metoprolol succinate 25 mg PO BID 01/19/18 01/19/18 History multivitamin 1 tab PO QAM 01/19/18 01/19/18 History rizatriptan 5 mg PO UD PRN 01/19/18 01/19/18 History vitamins A,C,W-xuhq-gyulqe [ICaps 1 cap PO BID 01/19/18 01/19/18 History AREDS] Allergies Allergy/AdvReac Type Severity Reaction Status Date / Time oxycodone Allergy Unknown RASH Verified 01/19/18 08:51 Past Med/Surg History Medical History CKD (chronic kidney disease), stage III (Chronic) LEENA (generalized anxiety disorder) (Chronic) H/O tachycardia-bradycardia syndrome (Chronic) Aortic valve sclerosis (Chronic) Osteoporosis (Chronic) LBBB (left bundle branch block) (Chronic) HTN (hypertension) (Chronic) Surgical History S/P placement of cardiac pacemaker (Chronic) H/O total hysterectomy (Resolved) History of nasal surgery (Resolved) History of partial mastectomy (Resolved) Hx of appendectomy (Resolved) Family History Other Heart disorder Stroke Social History Current Living Situation: Alone current occupational status: retired Other Information That Helps Us Care for You: No Feels Safe at Home: Yes Safety Concerns: Feels Safe At This Time Smoking Status: Never smoker Hx Alcohol Use: No Hx Substance Use: No Beliefs That Will Affect Care: None Preferred Language: Persian Communication Ability: Effective Review of Systems See HPI for pertinent positives & negatives. and A total of 10 systems reviewed and were otherwise negative Physical Exam Vital Signs Vital Signs - 24 hr 01/19/18 07:38 01/19/18 07:44 01/19/18 08:02 Temperature 37.1 C Temperature Source Oral Sepsis Recent Fever Within 48 Hours No Sepsis New/Unexplained Change in Mental Status No Sepsis Action Taken by Nursing No Action Required Pulse Rate 69 67 Respiratory Rate 20 22 Respiratory Effort / Characteristics Non-Labored Respiratory Depth Normal Respiratory Pattern Blood Pressure 171/85 H 163/81 H Blood Pressure [Right Arm] Blood Pressure Mean 113 108 Blood Pressure Mean [Right Arm] Blood Pressure Position [Right Arm] Pulse Oximetry 92 94 96 Oxygen Delivery Method Nasal Cannula Nasal Cannula Oxygen Flow Rate 4 4 01/19/18 08:31 01/19/18 09:01 01/19/18 09:31 Temperature Temperature Source Sepsis Recent Fever Within 48 Hours Sepsis New/Unexplained Change in Mental Status Sepsis Action Taken by Nursing Pulse Rate 81 74 60 Respiratory Rate 18 17 24 Respiratory Effort / Characteristics Respiratory Depth Respiratory Pattern Blood Pressure 170/98 H 181/78 H 162/77 H Blood Pressure [Right Arm] Blood Pressure Mean 122 112 105 Blood Pressure Mean [Right Arm] Blood Pressure Position [Right Arm] Pulse Oximetry 94 96 96 Oxygen Delivery Method Nasal Cannula Nasal Cannula Nasal Cannula Oxygen Flow Rate 01/19/18 10:47 01/19/18 10:48 01/19/18 11:01 Temperature Temperature Source Sepsis Recent Fever Within 48 Hours Sepsis New/Unexplained Change in Mental Status Sepsis Action Taken by Nursing Pulse Rate 65 73 Respiratory Rate 18 19 Respiratory Effort / Characteristics Non-Labored Spontaneous Respiratory Depth Normal Respiratory Pattern Regular Blood Pressure 150/77 H 155/87 H Blood Pressure [Right Arm] Blood Pressure Mean 101 109 Blood Pressure Mean [Right Arm] Blood Pressure Position [Right Arm] Pulse Oximetry 96 97 Oxygen Delivery Method Nasal Cannula Oxygen Flow Rate 2 01/19/18 11:31 01/19/18 12:16 01/19/18 13:00 Temperature 36.7 C Temperature Source Oral Sepsis Recent Fever Within 48 Hours Sepsis New/Unexplained Change in Mental Status Sepsis Action Taken by Nursing Pulse Rate 62 62 Respiratory Rate 18 20 Respiratory Effort / Characteristics Non-Labored Respiratory Depth Normal Respiratory Pattern Blood Pressure 131/94 136/76 Blood Pressure [Right Arm] 142/72 H Blood Pressure Mean 106 Blood Pressure Mean [Right Arm] 95 Blood Pressure Position [Right Arm] Lying Pulse Oximetry 94 95 94 Oxygen Delivery Method Nasal Cannula Nasal Cannula Nasal Cannula Oxygen Flow Rate 4 2 CONSTITUTIONAL/VITAL SIGNS: Reviewed / noted above. GENERAL: Non-toxic in appearance. INTEGUMENTARY: Warm, dry, and [place]. HEAD: Normocephalic. EYES: without scleral icterus or trauma. ENT/OROPHARYNX: clear and moist. LYMPHADENOPATHY/NECK: Is supple without lymphadenopathy or meningismus. RESPIRATORY: Basilar crackles noted at right base. CARDIOVASCULAR: Regular rate and rhythm. GI/ABDOMEN: Soft and nontender. No organomegaly or pulsatile mass. No rebound or guarding. Normal bowel sounds. EXTREMITIES: Warm and well perfused. BACK: No CVA tenderness. NEUROLOGICAL: Intact without focal deficits. PSYCHIATRIC: normal affect. MUSCULOSKELETAL: Normally developed with good muscle tone. Course 0756: Past medical records reviewed. The patient was evaluated in room B4B by Dr. Priscilla Tovar, the resident under my instruction, and a complete history and physical examination were performed. 0803: I evaluated the patient in room B4B, and a complete history and physical examination were performed. 1002: I reviewed the patient's case with Dolores Peck PA-C, [facility] hospitalist. She will evaluate the patient. 1109: Discussed the case with Dolores Peck PA-C, [facility] hospitalist. She will evaluate the patient for further management. Consultations Consultation #1: 1002: I reviewed the patient's case with Dolores Peck PA-C, [facility] hospitalist. She will evaluate the patient. 1109: Discussed the case with Dolores Peck PA-C, [facility] hospitalist. She will evaluate the patient for further management. Time: 10:02 Medical Decision Making Differential Diagnosis the differential was considered includes acute myocardial infarction, acute coronary syndrome, myocarditis, pericarditis, pericardial effusions /tamponad, esophageal perforation, thoracic aortic dissection, pulmonary embolism, pneumonia, pneumothorax, pancreatitis, shingles, acute cholecystitis, perforated abdominal viscus. Medical Records Attestation: I reviewed the patient's medical records. Home Medications Current Medication List: was personally reviewed by me Laboratory Data Attestation: I reviewed the patient's lab results. Result diagrams: 01/19/18 07:15 01/19/18 07:15 Lab Results 01/19/18 01/19/18 01/19/18 Range/Units 07:15 07:15 07:15 WBC 5.88 (4.8-10.8) K/uL RBC 4.82 (4.2-5.4) M/uL Hgb 15.2 (12.0-16.0) g/dL Hct 44.8 (37-47) % MCV 92.9 (80-100) fL MCH 31.5 (25-34) pg MCHC 33.9 (32-36) g/dL RDW Std Deviation 45.4 (36.4-46.3) fL RDW Coeff of Lupe 13.4 (11.5-14.5) % Plt Count 263 (130-400) K/uL MPV 11.3 H (7.4-10.4) fL Immature Gran % (Auto) 0.0 % Neut % (Auto) 47.9 % Lymph % (Auto) 35.4 % [place] % (Auto) 8.7 % Eos % (Auto) 7.0 % Baso % (Auto) 1.0 % Immature Gran # (Auto) 0.00 (0.00-0.02) K/uL Neut # (Auto) 2.82 (1.4-6.5) K/uL Lymph # (Auto) 2.08 (1.2-3.4) K/uL [place] # (Auto) 0.51 (0.11-0.59) K/uL Eos # (Auto) 0.41 (0-0.5) K/uL Baso # (Auto) 0.06 (0-0.2) K/uL PT 10.2 (9.0-12.0) Seconds INR 1.0 (0.9-1.1) APTT 27.5 (21.0-31.0) Seconds PTT Ratio 1.1 Sodium 137 (136-145) mmol/L Potassium 4.0 (3.5-5.1) mmol/L Chloride 100 (98-107) mmol/L Carbon Dioxide 29 (21-32) mmol/L Anion Gap 7.0 (3-11) BUN 17 (7-18) mg/dl Creatinine 1.14 (0.6-1.2) mg/dl Est Cr Clr Drug Dosing 30.3 ml/min Est GFR ( Amer) 50.8 Est GFR (Non-Af Amer) 43.8 BUN/Creatinine Ratio 14.8 (10-20) Glucose 105 H (70-99) mg/dl Calcium 9.4 (8.5-10.1) mg/dl CK-MB (CK-2) 1.8 (0.5-3.6) ng/ml Troponin I < 0.015 (0-0.045) ng/ml NT-Pro-B Natriuret Pep (0-1800) pg/ml 01/19/18 01/19/18 Range/Units 07:15 12:58 WBC (4.8-10.8) K/uL RBC (4.2-5.4) M/uL Hgb (12.0-16.0) g/dL Hct (37-47) % MCV (80-100) fL MCH (25-34) pg MCHC (32-36) g/dL RDW Std Deviation (36.4-46.3) fL RDW Coeff of Lupe (11.5-14.5) % Plt Count (130-400) K/uL MPV (7.4-10.4) fL Immature Gran % (Auto) % Neut % (Auto) % Lymph % (Auto) % [place] % (Auto) % Eos % (Auto) % Baso % (Auto) % Immature Gran # (Auto) (0.00-0.02) K/uL Neut # (Auto) (1.4-6.5) K/uL Lymph # (Auto) (1.2-3.4) K/uL [place] # (Auto) (0.11-0.59) K/uL Eos # (Auto) (0-0.5) K/uL Baso # (Auto) (0-0.2) K/uL PT (9.0-12.0) Seconds INR (0.9-1.1) APTT (21.0-31.0) Seconds PTT Ratio Sodium (136-145) mmol/L Potassium (3.5-5.1) mmol/L Chloride (98-107) mmol/L Carbon Dioxide (21-32) mmol/L Anion Gap (3-11) BUN (7-18) mg/dl Creatinine (0.6-1.2) mg/dl Est Cr Clr Drug Dosing ml/min Est GFR ( Amer) Est GFR (Non-Af Amer) BUN/Creatinine Ratio (10-20) Glucose (70-99) mg/dl Calcium (8.5-10.1) mg/dl CK-MB (CK-2) (0.5-3.6) ng/ml Troponin I < 0.015 (0-0.045) ng/ml NT-Pro-B Natriuret Pep 1805 H (0-1800) pg/ml Imaging Data Radiologist's Impression: Radiology results as stated below per my review and the radiologist's interpretation: XR chest 1V portable CLINICAL HISTORY: SOB, chest pain COMPARISON STUDY: 11/23/2017 FINDINGS: The heart is enlarged. There is mild interstitial edema. There is no focal pulmonary consolidation. There is a left subclavian dual-chamber central venous pacemaker. There are no significant pleural effusions.[ There is left shoulder calcific tendinitis. IMPRESSION: 1. Mild interstitial edema, likely on a cardiogenic basis. Electronically signed by: Valentin Thomas M.D. 01/19/2018 8:47 AM ECG Data Attestation: I personally reviewed and interpreted this ECG as follows: Indication: chest pain Rate (beats per minute): 79 Rhythm: other (intermittent paced ventricular rhythm) Findings: no ST depression and no ST elevation Blood Pressure Blood Pressure Findings: Elevated blood pressure Blood Pressure Disposition: further management by hospitalist MDM Narrative This is an 87-year-old female who presents to the ED with a chief complaint of shortness of breath. The patient states that she had a pacemaker placed in April. She reports that her symptoms started around 530 and had some heaviness in her chest as well. She was given 2 nitroglycerin by EMS and this improved her symptoms somewhat. The patient states that she has seen Dr. Polanco in the past. Her initial blood pressure was elevated. A chest x-ray reveals some mild congestive change. Complete metabolic panel was normal as well as a CBC. An EKG shows an intermittently paced rhythm without ST elevation or ectopy. Because of the patient's chest discomfort and shortness of breath and mild congestive changes, she will be seen by the hospitalist for further inpatient evaluation and care. Impression & Plan Angina pectoris, CHF (congestive heart failure) Discharge Plan Visit Data *Final* Discharge Date/Time: 01/19/18 12:16 Chief Complaint: Shortness of Breath/Dyspnea Stated Complaint: SGORTNESS OF BREATH ED Provider: Jas Prater ED Midlevel Provider: Priscilla Tovar Discharge Problem: Angina pectoris, CHF (congestive heart failure) Patient Disposition: Admitted As Inpatient Discharge Instructions Interventions: ED Discharge Assessment Last Done: 01/19/18 12:16 The scribe's documentation has been prepared under my direction and personally reviewed by me in its entirety. I confirm that the note above accurately reflects all work, treatment, procedures, and medical decision making performed by me.
[2018-01-19] MEDS ORDERED: FUROSEMIDE 40 MG in SYRINGE 0 ML IV STA (14:12)
[2018-01-19] MEDS: METOPROLOL SUCC 25MG EXT REL TAB PO SCH ×2 (14:39→21:35)
[2018-01-19] MEDS: AMIODARONE 200 MG TAB PO SCH (14:39)
[2018-01-19] MEDS: diazePAM 2 MG TABLET PO PRN (21:35)
[2018-01-19] MEDS: HEPARIN SOD 5,000 UNIT/0.5 ML VIAL SQ SCH (21:35)
[2018-01-19] MEDS: ACETAMINOPHEN 325 MG TAB PO PRN (21:36)
[2018-01-20] MEDS: HEPARIN SOD 5,000 UNIT/0.5 ML VIAL SQ SCH ×3 (05:42→21:57)
[2018-01-20] MEDS: LEVOTHYROXINE SODIUM 88 MCG TABLET PO SCH (05:43)
[2018-01-20 06:46] LABS: Mean Corpuscular Hgb Conc 33.3 g/dL (32-36); Mean Corpuscular Volume 92.2 fL (80-100); Mean Platelet Volume 10.7 fL (7.4-10.4); Platelet Count 208 K/uL (130-400); RDW Coefficient of Variation 13.4 % (11.5-14.5); RDW Standard Deviation 44.6 fL (36.4-46.3); Red Blood Count 4.23 M/uL (4.2-5.4); White Blood Count 5.44 K/uL (4.8-10.8)
[2018-01-20 07:26] LABS: BUN Creatinine Ratio 17.1 (10-20); Calcium 8.5 mg/dl (8.5-10.1); Creatinine Clr Calc Pharmacy 27.6 ml/min; Est GFR (African American) 45.4; Est GFR (Non-African American) 39.2; Potassium 3.7 mmol/L (3.5-5.1)
[2018-01-20] MEDS: MULTIVITAMIN TAB PO SCH (07:50)
[2018-01-20] MEDS: FLUTICASONE PROPIONATE NA SPR 16 GM BTL NAE SCH (07:50)
[2018-01-20] MEDS: AMIODARONE 200 MG TAB PO SCH (07:51)
[2018-01-20] MEDS: METOPROLOL SUCC 25MG EXT REL TAB PO SCH ×2 (07:51→21:34)
[2018-01-20] MEDS ORDERED: ASPIRIN 81 MG ECTAB PO SCH (09:00)
--- NOTE | 2018-01-20 13:45 | Hospitalist Progress Note ---
Date of Service January 20, 2018 Assessment & Plan (1) Acute respiratory failure: (2) Chest pain: This is a 87yo F with a PMH of HTN, tachy-roque syndrome s/p pacemaker placement in April 2017, LBBB, CKD III, anxiety and other medical problems listed below who presents with chest pain and shortness of breath since this morning. -Hypoxic at 87% initially, now 94% on 2L NC. Chest pain has resolved -EKG with demand atrial pacing with prolonged conduction and left bundle branch block (chronic). No acute ST changes -Initial troponin negative. Continue trending -CXR with mild interstitial edema, likely on a cardiogenic basis. -BNP mildly elevated at 1805. Suspect decompensated CHF vs. side effect of amiodarone contributing to acute respiratory failure -Echo from 04/26 (pre-pacemaker placement) with normal EF of 55-60%, no wall motion abnormalities, grade 1 diastolic dysfunction and mild aortic sclerosis -Repeat echo did not show grade 2 diastolic dysfunction with normal EF -Received 40 of Lasix IV the day of admission -Appreciate cardiology input and recommendation -Likely to need a small dose of Lasix on discharge -Repeat EKG in am -Consult cardiology (3) CKD (chronic kidney disease), stage III: Kidney function at baseline. Continue monitoring Kidney function is slightly worse We will monitor PRP while in the hospital (4) H/O tachycardia-bradycardia syndrome: (5) S/P placement of cardiac pacemaker: EKG with demand atrial pacing with prolonged conduction and left bundle branch block (chronic) -Pacemaker is functioning well as per cardiology (6) LEENA (generalized anxiety disorder): At baseline. Continue PRN diazepam (usually only takes HS) No anxiety (7) HTN (hypertension): Normotensive. Continue home Toprol DVT Ppx: SQ heparin Code status: FULL code, as discussed with patient PCP: Catie Haile Dispo: Admitted to telemetry. Plan to return home once medically stable. Patient seen in collaboration with Dr. Palacios. Please see addendum. Subjective He is an 87-year-old female with significant past medical history of diastolic heart failure, chronic kidney disease, aortic valve sclerosis, hypertension and recent history of tachybradycardia syndrome status post pacemaker was admitted with increasing shortness of breath and there was noted to congestive heart failure 01/20 The patient was seen and examined by me in telemetry She has been feeling a lot better following Lasix administration yesterday Denies any more shortness of breath and/or wheezing Has not been requiring oxygen since admission Physical Exam 2 Vital Signs (Past 24 Hours): Last Vital Signs Temp 37.2 C 01/20/18 11:02 Pulse 64 01/20/18 11:02 Resp 18 01/20/18 11:02 BP 131/68 01/20/18 11:02 Pulse Ox 95 01/20/18 11:02 Physical Exam: No apparent distress at rest Constitutional: WD/WN, vitals as above Eyes: PERRL, conjunctivae normal, anicteric sclerae ENMT: external ear and nose normal, oropharynx normal Respiratory: normal respiratory effort; no respiratory distress Auscultation: + diminished lung sounds (No crackles and wheezing) Cardiovascular: Irregularly irregular Gastrointestinal (Abdomen): normal bowel sounds, soft, nontender, no hepatosplenomegaly Neurologic: PERRL, EOMI, accommodation nl, no face palsy, no dysarthria
--- NOTE | 2018-01-20 15:29 | Cardiology Progress Note ---
Date of Service January 20, 2018 Assessment & Plan (1) LBBB (left bundle branch block): (2) S/P placement of cardiac pacemaker: (3) H/O tachycardia-bradycardia syndrome: (4) Acute diastolic (congestive) heart failure: The patient is comfortable and stable. She is no longer in heart failure. She is off IV diuretics. Creatinine has risen a little bit which is most likely diffusional. I would recommend that the patient be discharged home on a low dose of Lasix with outpatient follow-up. Subjective The patient had an uneventful night. She is comfortable. Physical Exam 2 Vital Signs (Past 24 Hours): Last Vital Signs Temp 36.8 C 01/20/18 15:12 Pulse 61 01/20/18 15:12 Resp 16 01/20/18 15:12 BP 154/78 H 01/20/18 15:12 Pulse Ox 95 01/20/18 15:12 Physical Exam: General: no acute distress and stated age Head: normocephalic, no masses, lesions, tenderness or abnormalities Eyes: conjunctiva are pink and non-injected, sclera clear Neck: supple, no adenopathy, no bruits, normal jugular venous pulse, no hepatojugular reflux Chest: normal shape and normal respiratory effort Lungs: clear to auscultation and percussion Cardiac Exam: - irregular rate & rhythm, no murmurs gallops or rubs - normal S1 , normal S2 Pulses: 2(+) throughout Abdomen: abdomen soft, non-tender, no abnormal masses and no hepatosplenomegaly Musculoskeletal: no gait disturbance, no joint inflammation, no deforming arthritis Extremities: no edema and no cyanosis Neuro: grossly normal exam Results & Data Laboratory Results Laboratory Results - last 24 hr 01/19/18 01/20/18 01/20/18 19:09 06:24 06:24 WBC 5.44 RBC 4.23 Hgb 13.0 Hct 39.0 MCV 92.2 MCH 30.7 MCHC 33.3 RDW Std Deviation 44.6 RDW Coeff of Lupe 13.4 Plt Count 208 MPV 10.7 H Sodium 137 Potassium 3.7 Chloride 100 Carbon Dioxide 30 Anion Gap 7.0 BUN 21 H Creatinine 1.25 H Est Cr Clr Drug Dosing 27.6 Est GFR ( Amer) 45.4 Est GFR (Non-Af Amer) 39.2 BUN/Creatinine Ratio 17.1 Glucose 83 Calcium 8.5 Troponin I < 0.015 Medications Administered Current Inpatient Medications Acetaminophen (Tylenol) 650 mg PO Q4H PRN PRN Reason: Pain or Fever Stop: 02/18/18 12:40 Last Admin: 01/19/18 21:36 Dose: 650 mg Amiodarone HCl (Cordarone) 200 mg PO QAM [facility] Stop: 02/18/18 14:29 Last Admin: 01/20/18 07:51 Dose: 200 mg Aspirin (Ecotrin) 81 mg PO MoWeFr@0900 [facility] Stop: 02/19/18 08:59 Last Admin: 01/20/18 07:50 Dose: 81 mg Diazepam (Valium) 2 mg PO Q12H PRN PRN Reason: Insomnia Stop: 02/18/18 12:40 Last Admin: 01/19/18 21:35 Dose: 2 mg Fluticasone Propionate (Flonase) 2 sprays YAS DAILY [facility] Stop: 02/19/18 08:59 Last Admin: 01/20/18 07:50 Dose: 2 sprays Heparin Sodium (Porcine) (Heparin Sodium (Porcine)) 5,000 units SQ Q8 [facility] Stop: 02/18/18 21:59 Last Admin: 01/20/18 13:38 Dose: Not Given Levothyroxine Sodium (Synthroid) 88 mcg PO DAILYBB [facility] Stop: 02/19/18 06:29 Last Admin: 01/20/18 05:43 Dose: 88 mcg Metoprolol Succinate (Toprol Xl) 25 mg PO BID [facility] Stop: 02/18/18 14:29 Last Admin: 01/20/18 07:51 Dose: 25 mg Miscellaneous (Order Awaiting Action) 1 ea N/A QS [facility] Stop: 02/18/18 15:59 Last Admin: 01/20/18 15:19 Dose: Not Given Miscellaneous (Order Awaiting Action) 1 ea N/A QS [facility] Stop: 02/18/18 15:59 Last Admin: 01/20/18 15:19 Dose: Not Given Multivitamins (Multivitamin) 1 tab PO QAM [facility] Stop: 02/19/18 08:59 Last Admin: 01/20/18 07:50 Dose: 1 tab Nitroglycerin (Nitrostat) 0.4 mg SL UD PRN PRN Reason: Chest Pain Stop: 02/18/18 12:40 Polyethylene Glycol (Miralax Powder Packet) 17 gm PO DAILY PRN PRN Reason: Constipation Stop: 02/18/18 12:40
[2018-01-20] MEDS: ACETAMINOPHEN 325 MG TAB PO PRN (21:34)
[2018-01-20] MEDS: diazePAM 2 MG TABLET PO PRN (21:35)
[2018-01-21 06:50] LABS: BUN Creatinine Ratio 20.5 (10-20); Calcium 8.3 mg/dl (8.5-10.1); Creatinine Clr Calc Pharmacy 33.3 ml/min; Est GFR (African American) 52.4; Est GFR (Non-African American) 45.2; Magnesium 2.2 mg/dl (1.8-2.4); Potassium 3.9 mmol/L (3.5-5.1)
[2018-01-21] MEDS: LEVOTHYROXINE SODIUM 88 MCG TABLET PO SCH (07:00)
[2018-01-21] MEDS: HEPARIN SOD 5,000 UNIT/0.5 ML VIAL SQ SCH ×2 (07:00→13:44)
[2018-01-21] MEDS: AMIODARONE 200 MG TAB PO SCH (08:14)
[2018-01-21] MEDS: MULTIVITAMIN TAB PO SCH (08:15)
[2018-01-21] MEDS: METOPROLOL SUCC 25MG EXT REL TAB PO SCH (08:15)
[2018-01-21] MEDS: FLUTICASONE PROPIONATE NA SPR 16 GM BTL NAE SCH (08:15)
--- NOTE | 2018-01-21 10:38 | Hospitalist Progress Note ---
Date of Service January 21, 2018 Assessment & Plan (1) Acute respiratory failure: (2) Chest pain: This is a 87yo F with a PMH of HTN, tachy-roque syndrome s/p pacemaker placement in April 2017, LBBB, CKD III, anxiety and other medical problems listed below who presents with chest pain and shortness of breath since this morning. -Hypoxic at 87% initially, now 94% on 2L NC. Chest pain has resolved -EKG with demand atrial pacing with prolonged conduction and left bundle branch block (chronic). No acute ST changes -Initial troponin negative. Continue trending -CXR with mild interstitial edema, likely on a cardiogenic basis. -BNP mildly elevated at 1805. Suspect decompensated CHF vs. side effect of amiodarone contributing to acute respiratory failure -Echo from 04/26 (pre-pacemaker placement) with normal EF of 55-60%, no wall motion abnormalities, grade 1 diastolic dysfunction and mild aortic sclerosis -Repeat echo did not show grade 2 diastolic dysfunction with normal EF -Received 40 of Lasix IV the day of admission -Appreciate cardiology input and recommendation -Likely to need a small dose of Lasix on discharge -Repeat EKG in am -Appreciate cardiology input and recommendation -We will give 20 of Lasix orally as an outpatient -Close follow-up with primary care provider (3) CKD (chronic kidney disease), stage III: Kidney function at baseline. Continue monitoring Kidney function is slightly worse We will monitor PRP while in the hospital Creatinine is a little worse today We will check PRP during PCPs visit (4) H/O tachycardia-bradycardia syndrome: (5) S/P placement of cardiac pacemaker: EKG with demand atrial pacing with prolonged conduction and left bundle branch block (chronic) -Pacemaker is functioning well as per cardiology (6) LEENA (generalized anxiety disorder): At baseline. Continue PRN diazepam (usually only takes HS) No anxiety (7) HTN (hypertension): Normotensive. Continue home Toprol DVT Ppx: SQ heparin Code status: FULL code, as discussed with patient PCP: Catie Haile Dispo: Admitted to telemetry. Plan to return home once medically stable. Discharge this afternoon Subjective He is an 87-year-old female with significant past medical history of diastolic heart failure, chronic kidney disease, aortic valve sclerosis, hypertension and recent history of tachybradycardia syndrome status post pacemaker was admitted with increasing shortness of breath and there was noted to congestive heart failure 01/20 The patient was seen and examined by me in telemetry She has been feeling a lot better following Lasix administration yesterday Denies any more shortness of breath and/or wheezing Has not been requiring oxygen since admission 01/21 Patient was seen and examined in telemetry He has been feeling a lot better without any wheezing and/or shortness of breath at rest Ambulating well without any difficulty Wants to go home this afternoon Physical Exam 2 Vital Signs (Past 24 Hours): Last Vital Signs Temp 36.7 C 01/21/18 07:59 Pulse 79 01/21/18 07:59 Resp 18 01/21/18 07:59 BP 149/68 H 01/21/18 07:59 Pulse Ox 92 01/21/18 07:59 Constitutional: WD/WN, vitals as above Eyes: PERRL, conjunctivae normal, anicteric sclerae ENMT: external ear and nose normal, oropharynx normal Respiratory: normal respiratory effort; no respiratory distress Auscultation: + diminished lung sounds (No crackles and wheezing) Gastrointestinal (Abdomen): normal bowel sounds, soft, nontender, no hepatosplenomegaly Neurologic: PERRL, EOMI, accommodation nl, no face palsy, no dysarthria Results & Data Laboratory Results [facility] 01/21/18 05:35 Sodium 137 Potassium 3.9 Chloride 102 Carbon Dioxide 27 BUN 23 H Creatinine 1.11 Glucose 82 Calcium 8.3 L Medications Administered Current Inpatient Medications Acetaminophen (Tylenol) 650 mg PO Q4H PRN PRN Reason: Pain or Fever Stop: 02/18/18 12:40 Last Admin: 01/20/18 21:34 Dose: 650 mg Amiodarone HCl (Cordarone) 200 mg PO QAM [facility] Stop: 02/18/18 14:29 Last Admin: 01/21/18 08:14 Dose: 200 mg Aspirin (Ecotrin) 81 mg PO MoWeFr@0900 [facility] Stop: 02/19/18 08:59 Last Admin: 01/20/18 07:50 Dose: 81 mg Diazepam (Valium) 2 mg PO Q12H PRN PRN Reason: Insomnia Stop: 02/18/18 12:40 Last Admin: 01/20/18 21:35 Dose: 2 mg Fluticasone Propionate (Flonase) 2 sprays YAS DAILY [facility] Stop: 02/19/18 08:59 Last Admin: 01/21/18 08:15 Dose: 2 sprays Heparin Sodium (Porcine) (Heparin Sodium (Porcine)) 5,000 units SQ Q8 [facility] Stop: 02/18/18 21:59 Last Admin: 01/21/18 07:00 Dose: Not Given Levothyroxine Sodium (Synthroid) 88 mcg PO DAILYBB [facility] Stop: 02/19/18 06:29 Last Admin: 01/21/18 07:00 Dose: 88 mcg Metoprolol Succinate (Toprol Xl) 25 mg PO BID [facility] Stop: 02/18/18 14:29 Last Admin: 01/21/18 08:15 Dose: 25 mg Miscellaneous (Order Awaiting Action) 1 ea N/A QS [facility] Stop: 02/18/18 15:59 Last Admin: 01/21/18 08:02 Dose: Not Given Miscellaneous (Order Awaiting Action) 1 ea N/A QS [facility] Stop: 02/18/18 15:59 Last Admin: 01/21/18 08:02 Dose: Not Given Multivitamins (Multivitamin) 1 tab PO QAM [facility] Stop: 02/19/18 08:59 Last Admin: 01/21/18 08:15 Dose: 1 tab Nitroglycerin (Nitrostat) 0.4 mg SL UD PRN PRN Reason: Chest Pain Stop: 02/18/18 12:40 Polyethylene Glycol (Miralax Powder Packet) 17 gm PO DAILY PRN PRN Reason: Constipation Stop: 02/18/18 12:40
--- NOTE | 2018-01-21 12:54 | Cardiology Progress Note ---
Date of Service January 21, 2018 Assessment & Plan (1) LBBB (left bundle branch block): (2) S/P placement of cardiac pacemaker: (3) H/O tachycardia-bradycardia syndrome: (4) Acute diastolic (congestive) heart failure: The patient is comfortable and stable. I would recommend that the patient continue home on a low dose of the loop diuretic. I will arrange follow -up as an outpatient. Subjective The patient had an uneventful night. She has no current cardiac complaints. All questions were answered. I will arrange for follow-up as an outpatient. Physical Exam 2 Vital Signs (Past 24 Hours): Last Vital Signs Temp 36.9 C 01/21/18 11:33 Pulse 62 01/21/18 11:33 Resp 18 01/21/18 11:33 BP 127/83 01/21/18 11:33 Pulse Ox 93 01/21/18 11:33 Physical Exam: General: no acute distress and stated age Head: normocephalic, no masses, lesions, tenderness or abnormalities Eyes: conjunctiva are pink and non-injected, sclera clear Neck: supple, no adenopathy, no bruits, normal jugular venous pulse, no hepatojugular reflux Chest: normal shape and normal respiratory effort Lungs: clear to auscultation and percussion Cardiac Exam: - regular rate & rhythm, no murmurs gallops or rubs - normal S1, normal S2 Pulses: 2(+) throughout Abdomen: abdomen soft, non-tender, no abnormal masses and no hepatosplenomegaly Musculoskeletal: no gait disturbance, no joint inflammation, no deforming arthritis Extremities: no edema and no cyanosis Neuro: grossly normal exam Results & Data Laboratory Results Laboratory Results - last 24 hr 01/21/18 05:35 Sodium 137 Potassium 3.9 Chloride 102 Carbon Dioxide 27 Anion Gap 8.0 BUN 23 H Creatinine 1.11 Est Cr Clr Drug Dosing 33.3 Est GFR ( Amer) 52.4 Est GFR (Non-Af Amer) 45.2 BUN/Creatinine Ratio 20.5 H Glucose 82 Calcium 8.3 L Magnesium 2.2 Medications Administered Current Inpatient Medications Acetaminophen (Tylenol) 650 mg PO Q4H PRN PRN Reason: Pain or Fever Stop: 02/18/18 12:40 Last Admin: 01/20/18 21:34 Dose: 650 mg Amiodarone HCl (Cordarone) 200 mg PO [facility] Stop: 02/18/18 14:29 Last Admin: 01/21/18 08:14 Dose: 200 mg Aspirin (Ecotrin) 81 mg PO MoWeFr@0900 [facility] Stop: 02/19/18 08:59 Last Admin: 01/20/18 07:50 Dose: 81 mg Diazepam (Valium) 2 mg PO Q12H PRN PRN Reason: Insomnia Stop: 02/18/18 12:40 Last Admin: 01/20/18 21:35 Dose: 2 mg Fluticasone Propionate (Flonase) 2 sprays YAS DAILY [facility] Stop: 02/19/18 08:59 Last Admin: 01/21/18 08:15 Dose: 2 sprays Furosemide (Lasix) 20 mg PO QAM [facility] Stop: 02/21/18 08:59 Heparin Sodium (Porcine) (Heparin Sodium (Porcine)) 5,000 units SQ Q8 [facility] Stop: 02/18/18 21:59 Last Admin: 01/21/18 07:00 Dose: Not Given Levothyroxine Sodium (Synthroid) 88 mcg PO DAILYBB [facility] Stop: 02/19/18 06:29 Last Admin: 01/21/18 07:00 Dose: 88 mcg Metoprolol Succinate (Toprol Xl) 25 mg PO BID [facility] Stop: 02/18/18 14:29 Last Admin: 01/21/18 08:15 Dose: 25 mg Miscellaneous (Order Awaiting Action) 1 ea N/A QS [facility] Stop: 02/18/18 15:59 Last Admin: 01/21/18 08:02 Dose: Not Given Miscellaneous (Order Awaiting Action) 1 ea N/A QS [facility] Stop: 02/18/18 15:59 Last Admin: 01/21/18 08:02 Dose: Not Given Multivitamins (Multivitamin) 1 tab PO QAM [facility] Stop: 02/19/18 08:59 Last Admin: 01/21/18 08:15 Dose: 1 tab Nitroglycerin (Nitrostat) 0.4 mg SL UD PRN PRN Reason: Chest Pain Stop: 02/18/18 12:40 Polyethylene Glycol (Miralax Powder Packet) 17 gm PO DAILY PRN PRN Reason: Constipation Stop: 02/18/18 12:40
--- NOTE | 2018-01-22 08:24 | Discharge Summary ---
Date of Service January 22, 2018 Admission HPI Per Admitting Provider This is a 87yo F with a PMH of HTN, tachy-roque syndrome s/p pacemaker placement in April 2017, LBBB, CKD III, anxiety and other medical problems listed below who presents with chest pain and shortness of breath since this morning. Patient was in normal state of health until she woke up this morning around 5am to use the restroom and felt short of breath after walking back to bed. Also developed a central, substernal, non-radiating chest pressure. Noticed a "rattling" sound in her chest when she laid back down. Had difficulty catching her breath and it reminder her of her visit to the ED in April when she had her pacemaker placed. Called EMS and was given 2 ntg en route to hospital with complete resolution of chest pain. Upon arrival, was found to be hypoxic at 87% on room air, with saturation improving to 94% on 2L NC. Does not require home O2. Hemodynamically stable, no lab abnormalities. EKG with demand atrial pacing with prolonged conduction and left bundle branch block (chronic). No acute ST changes. Initial troponin negative. Endorses some orthopnea but denies any cough, PND or weight gain. No fever, chills, recent URI illness, palpitations, abdominal pain, nausea, vomiting, dysuria, diarrhea or constipation. Most recent echo was performed prior to pacemaker insertion in April 2017 with normal EF of 55-60%, no wall motion abnormalities, grade 1 diastolic dysfunction and mild aortic sclerosis. Normal PM interrogation in December 2017. Follows with Dr. Silver in clinic. Admission Exam Per Admitting Provider Vital Signs (Past 24 Hours): Last Vital Signs Temp 37.1 C 01/19/18 07:38 Pulse 65 01/19/18 10:47 Resp 18 01/19/18 10:47 BP 150/77 H 01/19/18 10:47 Pulse Ox 96 01/19/18 10:47 Physical Exam: General Appearance: WD/WN, no apparent distress, resting comfortably with 2L NC O2 Head: normocephalic, atraumatic Eyes: normal inspection, PERRL, EOMI ENT: hearing grossly normal, pharynx normal (moist mucous membranes) Neck: supple, no JVD, no adenopathy Respiratory/Chest: No chest wall tenderness. Lungs clear to auscultation. No wheezes, rales or rhonci. No respiratory distress or accessory muscle use Cardiovascular: regular rate, rhythm, no murmur appreciated, normal peripheral pulses Abdomen/GI: normal bowel sounds, soft, non-tender to palpation Extremities/Musculoskelatal: normal inspection, no calf tenderness, normal capillary refill, no pedal edema Neurologic/Psych: alert, normal mood/affect, oriented x 3 Skin: normal color, warm/dry Principal Diagnosis Acute diastolic heart failure Discharge Exam Constitutional WD/WN, vitals as above Eyes PERRL, conjunctivae normal, anicteric sclerae ENMT external ear and nose normal, oropharynx normal Respiratory normal respiratory effort; no respiratory distress Auscultation: + diminished lung sounds (No crackles and wheezing) Gastrointestinal (Abdomen) normal bowel sounds, soft, nontender, no hepatosplenomegaly Neurologic PERRL, EOMI, accommodation nl, no face palsy, no dysarthria Discharge Data Allergies Allergy/AdvReac Type Severity Reaction Status Date / Time oxycodone Allergy Unknown RASH Verified 01/19/18 08:51 Consultations 01/19/18 10:10 ED Decision to Admit Stat 01/19/18 12:41 Consult Cardiology Routine Hospital Course (1) Acute respiratory failure: (2) Chest pain: This is a 87yo F with a PMH of HTN, tachy-roque syndrome s/p pacemaker placement in April 2017, LBBB, CKD III, anxiety and other medical problems listed below who presents with chest pain and shortness of breath since this morning. -Hypoxic at 87% initially, now 94% on 2L NC. Chest pain has resolved -EKG with demand atrial pacing with prolonged conduction and left bundle branch block (chronic). No acute ST changes -Initial troponin negative. Continue trending -CXR with mild interstitial edema, likely on a cardiogenic basis. -BNP mildly elevated at 1805. Suspect decompensated CHF vs. side effect of amiodarone contributing to acute respiratory failure -Echo from 04/26 (pre-pacemaker placement) with normal EF of 55-60%, no wall motion abnormalities, grade 1 diastolic dysfunction and mild aortic sclerosis -Repeat echo did not show grade 2 diastolic dysfunction with normal EF -Received 40 of Lasix IV the day of admission -Appreciate cardiology input and recommendation -Likely to need a small dose of Lasix on discharge -Repeat EKG in am -Appreciate cardiology input and recommendation -We will give 20 of Lasix orally as an outpatient -Close follow-up with primary care provider (3) CKD (chronic kidney disease), stage III: Kidney function at baseline. Continue monitoring Kidney function is slightly worse We will monitor PRP while in the hospital Creatinine is a little worse today We will check PRP during PCPs visit (4) H/O tachycardia-bradycardia syndrome: (5) S/P placement of cardiac pacemaker: EKG with demand atrial pacing with prolonged conduction and left bundle branch block (chronic) -Pacemaker is functioning well as per cardiology (6) LEENA (generalized anxiety disorder): At baseline. Continue PRN diazepam (usually only takes HS) No anxiety (7) HTN (hypertension): Normotensive. Continue home Toprol DVT Ppx: SQ heparin Code status: FULL code, as discussed with patient PCP: Catie Haile Dispo: Admitted to telemetry. Plan to return home once medically stable. Discharge this afternoon Total Time Total Time Spent Total Time Spent (In Minutes): 35 minutes Total Time Includes: Examination of the Patient, Discharge Planning, Medication Reconciliation and Communication With Other Providers Discharge Plan Discharge Items Patient Disposition: Home - Self-Care Reason For Visit: CHEST PAIN, ACUTE RESP FAILURE Discharge Diagnosis: Acute diastolic heart failure Condition: Good Discharge Goals: Decrease discomfort, Improve disease control and Improve function Activity: Resume your previous activity Non-emergency contact: Primary Care Provider Call non-emergency contact if: you have any medication questions and your symptoms worsen Follow-up/Referrals: Gadiel Haile [Primary Care Provider] - 01/25/18 1:05 pm (Cardiology will call with appointment. ) Diet: Heart Healthy Fluids: 1200ml (5 cups) Addtl Provider Instructions: Call your Primary Care doctor if any of the following symptoms or problems start or get worse: * Shortness of breath or difficulty breathing * Wake up at night short of breath * Chest pain * Cough * Swelling of your hands, feet, or legs * More fatigued or tired with your normal activity * Palpitations - sudden fast heart beats WEIGHT * Weigh yourself every morning after using the bathroom. * Use the same scale. * Wear the same amount of clothing. * Write your weight down on a chart. * Call your Primary Care doctor if you gain more than 2-3 pounds in 1-2 days. MEDICATIONS * Use this discharge instruction sheet for medication instructions. * Take your medications at the time your doctor ordered. * Do not skip a dose of your medicines. * If you miss a dose of medicine, take it as soon as possible, but DO NOT DOUBLE A DOSE. * Read your medicine information when you get home. * Know all of the side effects of your medicine. If in doubt, ask your pharmacist * Call your Primary Care doctor's office if you have any side effects. * Be sure all of your doctors know what medicine and herbs you take (including cold, flu, and herbal medicine). Take the following with you to your follow-up doctor appointments: * Weight Chart * Medication List * List of questions Do not drink excessive alcohol, beer or wine. Prescriptions: New furosemide [Lasix] 20 mg tablet 20 mg PO DAILY Qty: 30 RF: 0 Continue aspirin 81 mg Tablet,Delayed Release (Dr/Ec) 81 mg PO MOWEFR RF: 0 fluticasone [Flonase Allergy Relief] 50 mcg/actuation [place],Suspension 2 spray INTRANASAL DAILY RF: 0 multivitamin Tablet 1 tab PO QAM RF: 0 acetaminophen [Tylenol] 325 mg Tablet 650 mg PO HS RF: 0 amiodarone 200 mg tablet 200 mg PO QAM RF: 0 levothyroxine 88 mcg Tablet 88 mcg PO QAM RF: 0 diazepam 2 mg Tablet 1 tab PO Q12H PRN (Reason: Insomnia) RF: 0 metoprolol succinate 25 mg tablet extended release 24 hr 25 mg PO BID RF: 0 rizatriptan 5 mg Tablet 5 mg PO UD PRN (Reason: Migraine Headache) RF: 0 vitamins A,C,M-jrye-tcxoyd [ICaps AREDS] 14,320-226-200 [id number] Capsule 1 cap PO BID RF: 0 alfalfa 250 mg Tablet 1,250 mg PO BID RF: 0 Ca carb-Ca gluc-Mg ox-Mg gluco [Calcium Magnesium] 500 mg calcium -250 mg Tablet 1 tab PO TID RF: 0 Visit Report Forms: My [facility]/Other Patient Handouts: Furosemide Oral tablet, ED Chest Pain NonCardiac Discharge Orders: Discharge Order (Routine); Ordered 01/21/18 Ordered By: Willie Palacios Admission Data Admit Date/Time: 01/19/18 11:40 Attending Provider: Willie Palacios Admit Provider: Willie Palacios Primary Care Provider: Gadiel Haile Other Providers: Nasir Valentin ; Willie Palacios Service: Telemetry Other Interventions: Discharge Summary Assessment (RN) Last Done: 01/21/18 14:18 DC Date/Time DO NOT enter until pt leaves facility: 01/21/18 15:22
[2018-01-22] MEDS ORDERED: FUROSEMIDE 20 MG TAB PO SCH (09:00)
== END 2018-01-21 15:22 | disposition home or self-care (01) | DRG 291 ==
LOC: ED 07:31 → 2S 11:40

== ENCOUNTER 2021-08-27 23:13 | Observation (INO) ==
[2021-08-27] MEDS ORDERED: SODIUM CHLORIDE 0.9% 1000ML 1,000 ML IV SCH (23:45)
--- NOTE | 2021-08-27 23:45 | Emergency Department Note ---
History of Present Illness General Chief complaint: Chest Pain Stated complaint: Cardiac Assessment, Hypertension, SOB Time Seen by Provider: 08/27/21 23:24 Source: patient Mode of arrival: ambulatory Limitations: no limitations History of Present Illness Provider complaint: Palpitations, shortness of breath Onset (ago): week(s) Maximum Pain Intensity: 3 Associated symptoms: + shortness of breath; no chest pain, no cough, no fever/chills, no nausea/vomiting or no syncope Treatments prior to arrival: none This is an 89-year-old female presents emergency department due to concern for worsening palpitations and shortness of breath. Patient states she has had mild intermittent palpitations over the last several weeks, worse in the last several days and specifically more severe this evening. Patient feels she has been getting more short of breath. Patient does have a known cardiac history and does have a pacemaker. She states pacemaker was originally placed for heart block. She states she does see Dr. Silver. Pacemaker was placed 5 years ago and is due to be rechecked later on this year. Patient denies any recent change in medications. Patient denies any recent trauma, illness, change in diet, or travel. She denies dizziness, nausea, abdominal pain, change in stools, or lower extremity swelling. Pt seen during a time of high acuity and national emergency pandemic while wearing PPE. Home Medications Medication Instructions Recorded Confirmed Type alfalfa 600 mg tablet 0 mg PO DAILY 08/28/21 08/28/21 History amoxicillin 500 mg capsule 2,000 mg PO DIRECTED PRN 08/28/21 08/28/21 History .BEFORE DENTAL PROCEDURE aspirin 81 mg tablet,delayed 81 mg PO DAILY 08/28/21 08/28/21 History release betamethasone valerate 0.1 % 1 applic topical BID PRN APPLY TO 08/28/21 08/28/21 History topical cream AFFECTED AREA calcium and magnesium carbonates 1 tab PO TID 08/28/21 08/28/21 History 520 mg-400 mg tablet diclofenac sodium 1 % topical gel 2 g topical DIRECTED PRN 08/28/21 08/28/21 History AFFECTED AREA doxepin 3 mg tablet 3 mg PO HS 08/28/21 08/28/21 History furosemide 40 mg tablet 40 mg PO DAILY 08/28/21 08/28/21 History gabapentin 100 mg capsule 200 mg PO HS 08/28/21 08/28/21 History levothyroxine 88 mcg tablet 88 mcg PO DAILY 08/28/21 08/28/21 History lorazepam 0.5 mg tablet 0.5 mg PO DAILY PRN Anxiety 08/28/21 08/28/21 History melatonin 10 mg tablet 10 mg PO HS 08/28/21 08/28/21 History metoprolol succinate 25 mg 25 mg PO BID 08/28/21 08/28/21 History tablet,extended release 24 hr multivitamin 1 tab PO DAILY 08/28/21 08/28/21 History omeprazole 20 mg capsule,delayed 20 mg PO HS 08/28/21 08/28/21 History release vitamins A,C,K-tyem-iwastu 14,320 1 cap PO BID 08/28/21 08/28/21 History unit-226 mg-200 unit capsule (PreserVision AREDS) Allergies Allergy/AdvReac Type Severity Reaction Status Date / Time oxycodone Allergy Unknown RASH Verified 08/28/21 01:55 Past Med/Surg History Medical History (Updated 08/28/21 @ 05:24 by Rosa Mcneal DO) Aortic valve sclerosis CKD (chronic kidney disease), stage III LEENA (generalized anxiety disorder) H/O tachycardia-bradycardia syndrome HTN (hypertension) LBBB (left bundle branch block) Osteoporosis Surgical History H/O total hysterectomy History of nasal surgery History of partial mastectomy Hx of appendectomy S/P placement of cardiac pacemaker Family History Other Heart disease Stroke Social History Smoking Status: Never smoker Hx Alcohol Use: No Hx Substance Use: No Preferred Language: Sami Communication Ability: Effective Beliefs That Will Affect Care: None Current Living Situation: Alone current occupational status: retired Feels Safe at Home: Yes Assistive Devices: Glasses and Hearing Aid - Bilateral Review of Systems A total of 10 systems reviewed and were otherwise negative All systems reviewed & are unremarkable except as noted in HPI & below Physical Exam Vital Signs Vital Signs - 24 hr 08/27/21 23:19 08/27/21 23:20 08/27/21 23:24 Temperature 37.2 C Temperature Source Oral Pulse Rate 85 83 83 Pulse Rate from SpO2 Sensor 130 H 66 Respiratory Rate 18 22 30 H Respiratory Effort / Characteristics Non-Labored Spontaneous Respiratory Depth Normal Respiratory Pattern Regular Blood Pressure 205/74 H Blood Pressure Mean 117 Pulse Oximetry 94 94 92 Oxygen Delivery Method Room Air Sepsis Recent Fever Within 48 Hours No Sepsis New/Unexplained Change in Mental Status No Sepsis Action Taken by Nursing No Action Required 08/27/21 23:30 08/27/21 23:31 08/28/21 00:00 Temperature Temperature Source Pulse Rate 83 82 77 Pulse Rate from SpO2 Sensor 41 L 35 L Respiratory Rate 20 20 26 H Respiratory Effort / Characteristics Respiratory Depth Respiratory Pattern Blood Pressure 179/88 H 177/102 H Blood Pressure Mean 118 127 Pulse Oximetry 95 96 Oxygen Delivery Method Sepsis Recent Fever Within 48 Hours Sepsis New/Unexplained Change in Mental Status Sepsis Action Taken by Nursing 08/28/21 00:30 08/28/21 01:30 08/28/21 01:32 Temperature Temperature Source Pulse Rate 79 81 81 Pulse Rate from SpO2 Sensor 40 L 44 L Respiratory Rate 25 H 19 20 Respiratory Effort / Characteristics Respiratory Depth Respiratory Pattern Blood Pressure 183/72 H Blood Pressure Mean 109 Pulse Oximetry 95 93 Oxygen Delivery Method Sepsis Recent Fever Within 48 Hours Sepsis New/Unexplained Change in Mental Status Sepsis Action Taken by Nursing 08/28/21 01:32 08/28/21 02:01 08/28/21 02:31 Temperature Temperature Source Pulse Rate 82 Pulse Rate from SpO2 Sensor 40 L 41 L Respiratory Rate 6 L 16 Respiratory Effort / Characteristics Respiratory Depth Respiratory Pattern Blood Pressure 183/74 H 166/60 H Blood Pressure Mean 110 95 Pulse Oximetry 94 94 Oxygen Delivery Method Sepsis Recent Fever Within 48 Hours Sepsis New/Unexplained Change in Mental Status Sepsis Action Taken by Nursing 08/28/21 03:01 08/28/21 03:01 08/28/21 04:00 Temperature Temperature Source Pulse Rate 81 79 Pulse Rate from SpO2 Sensor 41 L 39 L Respiratory Rate 20 18 Respiratory Effort / Characteristics Respiratory Depth Respiratory Pattern Blood Pressure 173/84 H 173/84 H Blood Pressure Mean 113 113 Pulse Oximetry 92 93 Oxygen Delivery Method Sepsis Recent Fever Within 48 Hours Sepsis New/Unexplained Change in Mental Status Sepsis Action Taken by Nursing GENERAL: alert, well appearing, well nourished, no distress, non-toxic EYE EXAM: normal conjunctiva, PERRL and EOM's grossly intact OROPHARYNX: no exudate, no erythema, lips, buccal mucosa, and tongue normal and mucous membranes are moist NECK: supple, no nuchal rigidity, no adenopathy, non-tender LUNGS: Clear to auscultation. Normal chest wall mechanics, no w/r/r HEART: no murmurs, S1 normal and S2 normal ABDOMEN: abdomen soft, non-tender, normo-active bowel sounds, no masses, no rebound or guarding. BACK: Back is symmetrical on inspection and there is no deformity, no midline tenderness, no CVA tenderness. SKIN: no rashes and no bruising UPPER EXTREMITIES: upper extremities are grossly normal. FROM, nml pulses b/l. LOWER EXTREMITIES: No pitting edema. FROM, nml pulses b/l. NEURO EXAM: Normal sensorium, cranial nerves II-XII grossly intact, normal speech, no gross weakness of arms, no gross weakness of legs. Gross sensation intact. Course Course 0052: Discussed with [employer] rep. No acutely concerning findings on interrogation of patient's pacemaker. 0138: Patient updated on results. States no symptoms currently at rest. Administered Medications Sodium Chloride (Nss 1000ml) 1,000 mls @ 75 mls/hr IV .[id number] MARIVEL Stop: 09/26/21 23:44 Last Admin: 08/28/21 00:15 Dose: 75 mls/hr Documented By: ABDIEL Discontinued Medications Ioversol (Optiray 320 125ml) 125 ml IV ONCE ONE Stop: 08/28/21 01:58 Last Admin: 08/28/21 01:57 Dose: 98 ml Documented By: ANDREA Medical Decision Making Differential Diagnosis Differential diagnosis includes etiologies such as premature contractions, electrolyte abnormality, cardiac dysrhythmia, thyroid dysfunction, pulmonary embolism, infection, gastrointestinal, as well as others were entertained. Medical Records Attestation: I reviewed the patient's medical records. Home Medications Current Medication List: was personally reviewed by me Laboratory Data Attestation: I reviewed the patient's lab results. Result diagrams: 08/27/21 23:20 08/27/21 23:20 Lab Results 08/27/21 08/27/21 08/27/21 Range/Units 23:20 23:20 23:20 WBC 7.30 (4.8-10.8) K/ul RBC 4.17 (3.93-5.22) M/uL Hgb 12.9 (12.0-16.0) g/dl Hct 37.5 (34.1-44.9) % MCV 89.9 (80.0-100.0) fL MCH 30.9 (25.0-34.0) pg MCHC 34.4 (32.0-36.0) g/dL RDW Std Deviation 39.8 (36.4-46.3) fL RDW Coeff of Lupe 12.1 (11.5-14.5) % Plt Count 237 (130-400) K/uL MPV 10.6 (9.4-12.3) fL Immature Gran % (Auto) 0.3 % Neut % (Auto) 41.0 % Lymph % (Auto) 36.4 % Gregg % (Auto) 13.8 % Eos % (Auto) 7.7 % Baso % (Auto) 0.8 % Neut # (Auto) 2.99 (1.4-6.5) K/uL Lymph # (Auto) 2.66 (1.2-3.4) K/uL Gregg # (Auto) 1.01 H (0.24-0.82) K/uL Eos # (Auto) 0.56 H (0-0.50) K/uL Baso # (Auto) 0.06 (0-0.2) K/uL Immature Gran # (Auto) 0.02 (0.00-0.02) K/uL PT 10.2 (9.0-12.0) Seconds INR 1.0 (0.9-1.1) Sodium 135 L (136-145) mmol/L Potassium 3.7 (3.5-5.1) mmol/L Chloride 101 (98-107) mmol/L Carbon Dioxide 25 (21-32) mmol/L Anion Gap 9 (3-11) BUN 24 H (6-23) mg/dl Creatinine 1.06 (0.6-1.2) mg/dl Est Cr Clr Drug Dosing 36.2 ml/min Est GFR ( Amer) 53.9 ml/min Est GFR (Non-Af Amer) 46.5 ml/min BUN/Creatinine Ratio 22.6 H (10-20) Glucose 106 H (70-99(Fasting)) mg/dl Calcium 9.3 (8.5-10.1) mg/dl Magnesium 2.1 (1.7-2.4) mg/dl Total Bilirubin 0.3 (0.2-1.0) mg/dl AST 21 (13-39) U/L ALT 18 (7-52) U/L Alkaline Phosphatase 54 (34-104) U/L Troponin I High Sens 14.4 H (0-14) pg/ml B-Natriuretic Peptide (0-100) pg/ml Total Protein 7.6 (6.0-8.3) gm/dl Albumin 4.4 (3.4-5.0) gm/dl Globulin 3.2 (2.5-4.0) gm/dl Albumin/Globulin Ratio 1.4 (0.9-2) Lipase 80 (11-82) U/L TSH (0.300-4.500) uIu/ml Lyme Disease IgG Ab (Negative) Lyme Disease IgM Ab (Negative) SARS-CoV-2 (PCR) (Negative) 08/27/21 08/27/21 08/27/21 Range/Units 23:20 23:20 23:34 WBC (4.8-10.8) K/ul RBC (3.93-5.22) M/uL Hgb (12.0-16.0) g/dl Hct (34.1-44.9) % MCV (80.0-100.0) fL MCH (25.0-34.0) pg MCHC (32.0-36.0) g/dL RDW Std Deviation (36.4-46.3) fL RDW Coeff of Lupe (11.5-14.5) % Plt Count (130-400) K/uL MPV (9.4-12.3) fL Immature Gran % (Auto) % Neut % (Auto) % Lymph % (Auto) % Gregg % (Auto) % Eos % (Auto) % Baso % (Auto) % Neut # (Auto) (1.4-6.5) K/uL Lymph # (Auto) (1.2-3.4) K/uL Gregg # (Auto) (0.24-0.82) K/uL Eos # (Auto) (0-0.50) K/uL Baso # (Auto) (0-0.2) K/uL Immature Gran # (Auto) (0.00-0.02) K/uL PT (9.0-12.0) Seconds INR (0.9-1.1) Sodium (136-145) mmol/L Potassium (3.5-5.1) mmol/L Chloride (98-107) mmol/L Carbon Dioxide (21-32) mmol/L Anion Gap (3-11) BUN (6-23) mg/dl Creatinine (0.6-1.2) mg/dl Est Cr Clr Drug Dosing ml/min Est GFR ( Amer) ml/min Est GFR (Non-Af Amer) ml/min BUN/Creatinine Ratio (10-20) Glucose (70-99(Fasting)) mg/dl Calcium (8.5-10.1) mg/dl Magnesium (1.7-2.4) mg/dl Total Bilirubin (0.2-1.0) mg/dl AST (13-39) U/L ALT (7-52) U/L Alkaline Phosphatase (34-104) U/L Troponin I High Sens (0-14) pg/ml B-Natriuretic Peptide 293 H (0-100) pg/ml Total Protein (6.0-8.3) gm/dl Albumin (3.4-5.0) gm/dl Globulin (2.5-4.0) gm/dl Albumin/Globulin Ratio (0.9-2) Lipase (11-82) U/L TSH 2.269 (0.300-4.500) uIu/ml Lyme Disease IgG Ab Negative (Negative) Lyme Disease IgM Ab Negative (Negative) SARS-CoV-2 (PCR) (Negative) 08/28/21 Range/Units 02:10 WBC (4.8-10.8) K/ul RBC (3.93-5.22) M/uL Hgb (12.0-16.0) g/dl Hct (34.1-44.9) % MCV (80.0-100.0) fL MCH (25.0-34.0) pg MCHC (32.0-36.0) g/dL RDW Std Deviation (36.4-46.3) fL RDW Coeff of Lupe (11.5-14.5) % Plt Count (130-400) K/uL MPV (9.4-12.3) fL Immature Gran % (Auto) % Neut % (Auto) % Lymph % (Auto) % Gregg % (Auto) % Eos % (Auto) % Baso % (Auto) % Neut # (Auto) (1.4-6.5) K/uL Lymph # (Auto) (1.2-3.4) K/uL Gregg # (Auto) (0.24-0.82) K/uL Eos # (Auto) (0-0.50) K/uL Baso # (Auto) (0-0.2) K/uL Immature Gran # (Auto) (0.00-0.02) K/uL PT (9.0-12.0) Seconds INR (0.9-1.1) Sodium (136-145) mmol/L Potassium (3.5-5.1) mmol/L Chloride (98-107) mmol/L Carbon Dioxide (21-32) mmol/L Anion Gap (3-11) BUN (6-23) mg/dl Creatinine (0.6-1.2) mg/dl Est Cr Clr Drug Dosing ml/min Est GFR ( Amer) ml/min Est GFR (Non-Af Amer) ml/min BUN/Creatinine Ratio (10-20) Glucose (70-99(Fasting)) mg/dl Calcium (8.5-10.1) mg/dl Magnesium (1.7-2.4) mg/dl Total Bilirubin (0.2-1.0) mg/dl AST (13-39) U/L ALT (7-52) U/L Alkaline Phosphatase (34-104) U/L Troponin I High Sens (0-14) pg/ml B-Natriuretic Peptide (0-100) pg/ml Total Protein (6.0-8.3) gm/dl Albumin (3.4-5.0) gm/dl Globulin (2.5-4.0) gm/dl Albumin/Globulin Ratio (0.9-2) Lipase (11-82) U/L TSH (0.300-4.500) uIu/ml Lyme Disease IgG Ab (Negative) Lyme Disease IgM Ab (Negative) SARS-CoV-2 (PCR) NEGATIVE (Negative) Imaging Data My Impression: X-ray: I interpreted the following studies. Chest: A single view study of the chest was reviewed and was negative for cardiomegaly, focal infiltrate, effusion, pulmonary edema, or wide mediastinum. Pacer noted. Radiologist's Impression: CTA Chest: The pulmonary arterial tree is well opacified with contrast. No pulmonary emboli are identified. The thoracic aorta is heavily calcified but nondilated. There is no aneurysm or dissection. The heart is mildly enlarged. Severe coronary calcification is present. There is reflux of contrast into the hepatic veins suggesting some component of CHF. Lungs are well-expanded with prominent interstitial markings in the perihilar regions and lung bases likely combination of mild pulmonary edema with bronchitis and interstitial pneumonitis. No lobar consolidation, pneumothorax, or pleural effusion is seen. There is a pacing device on the left. Mild degenerative changes throughout the spine. No fracture or bone lesion is seen. Radiologist: Raúl Peck MD ECG Data Attestation: I personally reviewed and interpreted this ECG as follows: Indication: + palpitations Rate (beats per minute): 93 Rhythm: + other ECG Intervals/blocks: + Left bundle branch block and + Normal QT ECG [place]: + Normal ECG ST segments: + Nonspecific ST abnormalities MDM Narrative An order was placed for continuous cardiac monitoring. The monitor shows a rate of __72_ with paced _ rhythm. This is an 89-year-old female presents with concern for palpitations and shortness of breath. Symptoms have been ongoing for several weeks although worse more recently. Patient was afebrile and hemodynamically stable here. Initially was markedly hypertensive although this did begin to improve without intervention. Labs drawn and sent and chest x-ray performed. Due to concern for additional occult pathology, patient sent for CT angiography of the chest in addition. All results were discussed with patient at bedside. Given advanced age, cardiac history, and current complaints, case discussed with hospitalist for additional evaluation and management. Patient's BNP was found to be elevated and CT angiography of the chest suggestive of evolving pulmonary edema. Patient's clinical exam not strongly suggestive of overt CHF. Impression & Plan Palpitations, Acute dyspnea, Elevated brain natriuretic peptide (BNP) level Discharge Plan Visit Data Chief Complaint: Chest Pain Stated Complaint: Cardiac Assessment, Hypertension, SOB ED Provider: Rosa Mcneal Discharge Problem: Palpitations, Acute dyspnea, Elevated brain natriuretic peptide (BNP) level Forms Stand Alone Forms: My [employer] ([employer]) Prescriptions Prescriptions: No Action multivitamin Tablet 1 tab PO DAILY amoxicillin 500 mg capsule 2,000 mg PO DIRECTED PRN (Reason: .BEFORE DENTAL PROCEDURE) furosemide 40 mg tablet 40 mg PO DAILY aspirin [Aspir-Low] 81 mg Tablet,Delayed Release (Dr/Ec) 81 mg PO DAILY levothyroxine 88 mcg tablet 88 mcg PO DAILY lorazepam 0.5 mg Tablet 0.5 mg PO DAILY PRN (Reason: Anxiety) betamethasone valerate 0.1 % cream 1 applic TOPICAL BID PRN (Reason: APPLY TO AFFECTED AREA) omeprazole 20 mg capsule,delayed release(DR/EC) 20 mg PO HS gabapentin 100 mg capsule 200 mg PO HS metoprolol succinate 25 mg tablet extended release 24 hr 25 mg PO BID diclofenac sodium [Voltaren] 1 % Gel 2 g TOPICAL DIRECTED PRN (Reason: AFFECTED AREA) doxepin 3 mg tablet 3 mg PO HS alfalfa 600 mg Tablet 0 mg PO DAILY Rx Instructions: takes 4-5 tabs bid melatonin 10 mg Tablet 10 mg PO HS calcium and magnesium carbonat 520-400 mg Tablet 1 tab PO TID PreserVision AREDS [id number] Capsule 1 cap PO BID Referrals Referrals: Gadiel Haile DO [Primary Care Provider] -
[2021-08-27 23:54] LABS: Basophils # (auto) 0.06 K/uL (0-0.2); Basophils % (auto) 0.8 %; Eosinophils # (auto) 0.56 K/uL (0-0.50); Eosinophils % (auto) 7.7 %; Hematocrit (blood only) 37.5 % (34.1-44.9); Hemoglobin 12.9 g/dl (12.0-16.0); Immature Granulocytes # (auto) 0.02 K/uL (0.00-0.02); Immature Granulocytes % (auto) 0.3 %; Lymphocytes # (auto) 2.66 K/uL (1.2-3.4); Lymphocytes % (auto) 36.4 %; Mean Corpuscular Hemoglobin 30.9 pg (25.0-34.0); Mean Corpuscular Hgb Conc 34.4 g/dL (32.0-36.0); Mean Corpuscular Volume 89.9 fL (80.0-100.0); Mean Platelet Volume 10.6 fL (9.4-12.3); Monocytes # (auto) 1.01 K/uL (0.24-0.82); Monocytes % (auto) 13.8 %; Neutrophils # (auto) 2.99 K/uL (1.4-6.5); Platelet Count 237 K/uL (130-400); RDW Coefficient of Variation 12.1 % (11.5-14.5); RDW Standard Deviation 39.8 fL (36.4-46.3); Red Blood Count 4.17 M/uL (3.93-5.22)
[2021-08-28 00:04] LABS: Prothrombin Time 10.2 Seconds (9.0-12.0)
[2021-08-28 00:14] LABS: Albumin Globulin Ratio 1.4 (0.9-2); Albumin Level 4.4 gm/dl (3.4-5.0); BUN Creatinine Ratio 22.6 (10-20); Bilirubin,Total 0.3 mg/dl (0.2-1.0); Calcium 9.3 mg/dl (8.5-10.1); Creatinine Clr Calc Pharmacy 36.2 ml/min; Est GFR (African American) 53.9 ml/min; Est GFR (Non-African American) 46.5 ml/min; Globulin 3.2 gm/dl (2.5-4.0); Magnesium 2.1 mg/dl (1.7-2.4); Potassium 3.7 mmol/L (3.5-5.1); Total Protein 7.6 gm/dl (6.0-8.3)
[2021-08-28 00:16] LABS: Troponin I High Sensitivity 14.4 pg/ml (0-14)
[2021-08-28 00:41] LABS: Lyme Ab IgG w/WB Rflx Negative (Negative); Lyme Ab IgM w/WB Rflx Negative (Negative)
[2021-08-28] MEDS ORDERED: OPTIRAY 320 125ml IV ONE (01:57)
[2021-08-28] MEDS ORDERED: FUROSEMIDE 40 MG/4 ML VIAL IV ONE (05:24)
[2021-08-28] MEDS ORDERED: DICLOFENAC SOD 1% GEL 100 GM TUBE EXT PRN (06:53)
[2021-08-28] MEDS ORDERED: ACETAMINOPHEN 325 MG TAB PO PRN (06:53)
[2021-08-28] MEDS ORDERED: LORazepam 0.5 MG TAB PO PRN (06:53)
[2021-08-28] MEDS ORDERED: ONDANSETRON INJ 2 MG/ML 2 ML VIAL IV PRN (06:53)
[2021-08-28] MEDS ORDERED: BETAMETHASONE VAL 0.1% CR 15 GM TOP PRN (06:53)
[2021-08-28] MEDS ORDERED: NITROGLYCERIN SL 0.4 MG/TAB TAB SL PRN (06:53)
[2021-08-28] MEDS ORDERED: POLYETHYLENE (MIRALAX) 17 GM PACK PO PRN (06:53)
[2021-08-28 07:42] LABS: Basophils # (auto) 0.06 K/uL (0-0.2); Basophils % (auto) 0.8 %; Eosinophils # (auto) 0.46 K/uL (0-0.50); Eosinophils % (auto) 6.3 %; Hematocrit (blood only) 40.8 % (34.1-44.9); Hemoglobin 13.8 g/dl (12.0-16.0); Immature Granulocytes # (auto) 0.01 K/uL (0.00-0.02); Immature Granulocytes % (auto) 0.1 %; Lymphocytes # (auto) 2.68 K/uL (1.2-3.4); Lymphocytes % (auto) 36.7 %; Mean Corpuscular Hemoglobin 30.8 pg (25.0-34.0); Mean Corpuscular Hgb Conc 33.8 g/dL (32.0-36.0); Mean Corpuscular Volume 91.1 fL (80.0-100.0); Mean Platelet Volume 10.7 fL (9.4-12.3); Monocytes # (auto) 0.98 K/uL (0.24-0.82); Monocytes % (auto) 13.4 %; Neutrophils # (auto) 3.12 K/uL (1.4-6.5); Neutrophils % (auto) 42.7 %; Platelet Count 232 K/uL (130-400); RDW Coefficient of Variation 12.1 % (11.5-14.5); RDW Standard Deviation 40.4 fL (36.4-46.3); Red Blood Count 4.48 M/uL (3.93-5.22); White Blood Count 7.31 K/ul (4.8-10.8)
--- NOTE | 2021-08-28 07:49 | History and Physical Report ---
DATE OF ADMISSION: 08/28/2021. CHIEF COMPLAINT: Palpitations, shortness of breath. HISTORY OF PRESENT ILLNESS: An 89-year-old female who lives at [facility] with past medical history significant for hypothyroidism, paroxysmal SVT, tachybrady syndrome, status post pacemaker, chronic diastolic CHF, left bundle-branch block, hypertension, aortic valve sclerosis, chronic kidney disease stage III, history of GERD, history of carcinoma in situ of the vulva, female stress incontinence, remote history of endometrial cancer, senile osteoporosis, depression, recurrent falls, insomnia, generalized anxiety disorder, who presents with palpitations and shortness of breath. Yesterday night, she has some palpitations, tonight it got worse and she is having difficulty taking deep breaths, which prompted her to come to the ER. Denies any chest pain, no nausea, no vomiting, no headache, no dizziness, no blurred visions, no earache, no runny nose, no sore throat. Appetite is okay. No difficulty swallowing. No nausea, no abdominal pain. No sweating. Normal bowel and bladder movements. She is ambulating okay. Pacemaker was interrogated in the ER. ALLERGIES: OXYCODONE. PAST MEDICAL HISTORY: As mentioned above. PAST SURGICAL HISTORY: Colonoscopy, dilatation and curettage, EGD, EGD with biopsy, left leg vein removal, maxillary antrostomy, partial mastectomy for removal of the fibrocystic tissue, appendectomy, simple partial vulvectomy, cataracts, small bowel endoscopy with biopsy, repair of nasal septum, total abdominal hysterectomy with removal of tubes, left total hip replacement, hysterectomy for adenocarcinoma of the endometrium in 1992. MEDICATIONS: The patient is on oxygen p.r.n., aspirin 81 mg p.o. daily, betamethasone topical b.i.d. p.r.n., calcium and magnesium one tablet p.o. t.i.d., diclofenac sodium topical p.r.n., doxepin 3 mg p.o. at bedtime, Lasix 40 mg p.o. daily, gabapentin 300 mg p.o. at bedtime, levothyroxine 88 mcg p.o. daily, lorazepam 0.5 mg p.o. daily p.r.n., melatonin 10 mg p.o. at bedtime, metoprolol succinate 25 mg p.o. b.i.d., multivitamin 1 tablet p.o. daily, omeprazole 20 mg p.o. at bedtime, PreserVision AREDS 1 capsule p.o. b.i.d. FAMILY HISTORY: Significant for brother has heart disorder, father has stroke; sister has cancer, paternal grandmother had breast cancer. SOCIAL HISTORY: . No smoking, no alcohol, no drug use. REVIEW OF SYSTEMS: As per HPI. Rest of review of systems is negative. PHYSICAL EXAMINATION: GENERAL: The patient is old and frail, not in acute distress. VITAL SIGNS: Temperature 37.2, pulse 79, respiratory rate 25, blood pressure 177/102, oxygen 96% on room air. HEENT: Pupils equal, round and reactive to light. Oral mucosa moist. NECK: No JVD, no neck masses. CARDIOVASCULAR: S1 and S2 heard. Regular rate and rhythm. No murmur, no gallop. RESPIRATORY SYSTEM: Normal AP diameter. No accessory muscle use. No wheezing, no crackles. ABDOMEN: Soft, bowel sounds present, nontender, no distention. CENTRAL NERVOUS SYSTEM: Cranial nerves II through XII grossly intact, nonfocal. EXTREMITIES: Trace pedal edema, no erythema seen. LABORATORY DATA: WBC 7.3, hemoglobin 12.9, hematocrit 37.5, platelets 237. PT 10.4, INR 1. Sodium 135, potassium 3.7, chloride 101, bicarbonate 25, BUN 24, creatinine 1.06, serum glucose 106, calcium 9.3, magnesium 2.1, total bilirubin 0.3, AST 21, ALT 18, alkaline phosphatase 54. Troponin I high sensitivity 14.4, TSH 2.2. Lyme screen negative. SARS-CoV-2 PCR negative. IMAGING DATA: CTA chest results pending. Chest x-ray, no acute findings. EKG: Atrial paced rhythm with occasional supraventricular complexes, left bundle-branch block at rate of 93, no significant change was found. ASSESSMENT AND PLAN: An 89-year-old female who presents with palpitation and shortness of breath. 1. Palpitation and shortness of breath: Pacemaker interrogation in the ER. We will monitor in the [facility]. Follow the CTA chest results. Follow echocardiogram. Follow serial cardiac enzymes, Consult cardiology for further recommendations. 2. History of supraventricular tachycardia: On metoprolol succinate. 3. History of chronic diastolic congestive heart failure: On Lasix. 4. Hypothyroidism: On Synthroid. 5. General anxiety disorder: On Ativan p.r.n. 6. Hypertension: On metoprolol. 7. Chronic kidney disease, stage III: Presently with creatinine of 1.06, we will follow the labs. 8. Gastroesophageal reflux disease: On omeprazole. 9. Deep venous thrombosis prophylaxis: Sequential compression devices for now. DISPOSITION: Closely monitor in the med tele. PT/OT prior to discharge. Social service to help with discharge planning. Level 1 full code. Job ID: [id number] MTDD
--- NOTE | 2021-08-28 07:53 | XRay Report ---
XR chest 1V portable CLINICAL HISTORY: sob. COMPARISON STUDY: 01/19/2018 TECHNIQUE: 1 view of the chest FINDINGS: Single frontal view of the chest demonstrates the heart to again be mildly enlarged. Permanent cardia c pacer is again seen. The lungs are clear of alveolar opacities. There is no evidence for pleural ef fusion. There is no evidence for vascular congestion. There is no acute osseous pathology. IMPRESSION: 1. No acute cardiopulmonary disease. ACT 112: Negative or not required by law. Electronically signed by: Kory Waller M.D. 08/28/2021 7:52 AM
[2021-08-28 08:00] LABS: BUN Creatinine Ratio 19.4 (10-20); Calcium 9.7 mg/dl (8.5-10.1); Creatinine Clr Calc Pharmacy 39.2 ml/min; Est GFR (African American) 59.3 ml/min; Est GFR (Non-African American) 51.1 ml/min; Magnesium 2.2 mg/dl (1.7-2.4); Potassium 3.9 mmol/L (3.5-5.1)
[2021-08-28 08:05] LABS: Troponin I High Sensitivity 26.9 pg/ml (0-14)
--- NOTE | 2021-08-28 08:34 | CT Scan Report ---
CT angio chest PE protocol CLINICAL HISTORY: Shortness of breath and cough COMPARISON STUDY: Portable chest from 08/27/2021 CT DOSE: 232.34 mGy.cm TECHNIQUE: CT Angio of the chest was performed.followed by image post processing with coronal, and s agittal MIP reformats. Contrast Volume: Optiray 320, 98 ml FINDINGS: There is breathing motion artifact present. Vasculature: There is homogeneous perfusion of the pulmonary vasculature bilaterally. No intraluminal filling defects or evidence for pulmonary embolus is seen. Airway: The airway is clear. No endobronchial lesion is identified. Lungs: The lungs are clear of acute alveolar opacities, air bronchograms or pulmonary nodules. Pleura: There is no evidence for pleural effusion. There is no evidence for pneumothorax. Mediastinum: There is no evidence for pathologic adenopathy. The heart is mildly enlarged. Coronary a rtery calcification is present. The thoracic aorta is within normal limits. Atherosclerotic calcifica tion is present. There is no evidence for pericardial effusion. Upper abdomen: The adrenal glands are normal bilaterally. Osseous structures: There is no acute osseous pathology. Impression: 1. No CTA evidence for pulmonary embolus. 2. No acute chest disease. ACT 112: Negative or not required by law. Electronically signed by: Kory Waller M.D. 08/28/2021 8:33 AM
[2021-08-28] MEDS: LEVOTHYROXINE SODIUM 88 MCG TABLET PO SCH (08:39)
[2021-08-28] MEDS ORDERED: NON-FORMULARY MEDICATION (Vitamins A,C,E-Zinc-Copper [Preservision Areds] 14,320-226-200 u PO SCH (09:00)
[2021-08-28] MEDS ORDERED: METOPROLOL SUCC 25MG EXT REL TAB PO SCH (09:00)
[2021-08-28] MEDS: ASPIRIN 81 MG ECTAB PO SCH (10:35)
[2021-08-28] MEDS: CALCIUM CARBONATE 1250MG TAB PO SCH ×3 (10:35→20:17)
[2021-08-28] MEDS: MULTIVITAMIN TAB PO SCH (10:36)
[2021-08-28] MEDS: ATORVASTATIN 40 MG TAB PO SCH (10:36)
--- NOTE | 2021-08-28 11:15 | Cardiology Consultation ---
Date of Consultation August 28, 2021 Assessment & Plan (1) Palpitations: (2) LEENA (generalized anxiety disorder): (3) Hypertensive urgency: (4) Hypertensive heart disease: (5) LBBB (left bundle branch block): Plan 89-year-old female admitted with complaints of palpitations appearing to be in association with sensed atrial ectopy, after observing marked hypertension on home monitoring, occurring in association with the recent increased stressors; history of generalized anxiety. EKGs without acute change. Minimal troponin elevation does not appear to represent an acute plaque rupture. Resting echocardiogram pending. Options of management discussed with patient who requests conservative care appropriately. Recommend titration of metoprolol for heart rate and blood pressure control, adding low-dose amlodipine for the isolated systolic hypertension. Further recommendations pending the results of the resting echocardiogram, recommendations by Dr. Rodriguez, patient's ongoing hospital course. Supervising Physician Co-Signing Physician Notes Patient was seen and examined, chart medications and telemetry reviewed. Patient presenting with increased symptoms of palpitations and observed atrial ectopy with correlation with pacemaker interrogation and telemetry on presentation. Episodes have become more pronounced with social stress. Left ventricular systolic function is preserved on echocardiogram. Agree with assessment as outlined above Plan as outlined above upward titration of beta-shelley increasing metoprolol succinate to 50 mg twice per day, additional dose of 25 mg given now. Adding low-dose amlodipine for additional hypertension control. Increase activity on telemetry History of Present Illness Reason for Consultation: Palpitations Requesting Physician: Gerson Attending Physician: Tommy History of Present Illness Ms. Chapis Bender is a very pleasant 89-year-old female who presented to the [facility] ER via EMS late in the evening on August 27, 2021 due to palpitations. Patient notes increased stress and possible anxiety of late, exploring a future move from independent living at [facility] to [facility]. Patient notes experiencing "spells where I did not think my heart was beating right" over the last few weeks. Notes checking her pulse and finding it to be irregular but not particularly fast. Symptoms seemed to wax and wane. Notes initially thinking about calling Dr. Silver for an appointment. Last night, due to return of palpitations, patient checked her blood pressure and found it to be markedly elevated, systolic pressure greater than 200. Thereafter she experienced what she describes as "not choking but a little choky feeling in the neck." EMS was summoned. Blood pressure was markedly elevated on presentation, 205/74, and has remained elevated throughout hospitalization thus far. EKG on presentation to the ER revealed an atrial paced rhythm with occasional supraventricular complexes, left bundle branch block (chronic). Device interrogation performed in the emergency room revealed appropriate function. Estimated remaining longevity 9 years. Rhythm predominantly atrial paced (74.3%. Ventricular paced less than 0.1%. No AT/AF recorded. 2 VT episodes recorded. Unfortunately, just page one of the pacemaker interrogation is available for review. High sensitivity troponin minimally elevated. Chest x-ray showed no acute cardiopulmonary disease. Chest CTA showed no evidence of pulmonary embolism, no acute chest disease. This morning, patient notes "not feeling too bad after a very busy night." She denies chest pain or discomfort. No worsening exertional dyspnea. On questioning, she may feel more tired when doing things. No resting dyspnea. No cough, chest congestion, orthopnea, PND, or lower extremity peripheral edema. No dizziness or syncope. No fevers or chills. No melena or hematochezia. EKG this morning reveals an atrial paced rhythm with prolonged AV conduction, with occasional atrial ectopy, chronic left bundle branch block. Reviewed with a single lead nursing home assistant from the emergency room reveals atrial paced rhythm with frequent atrial ectopy. 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 Father at 80 with a CVA, longstanding smoker. Two brothers status post CABG x5. Multiple maternal uncles with MIs in their 70s. Social History: Non-smoker. No alcohol. No illegal drug use. Lives independently in a cottage at [facility], looking to transition to [facility]. 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 Originally from [place] 5 years ago. Three children, 2 boys live locally. Complete review of systems is otherwise as stated above, negative, noncontributory. Allergies Allergy/AdvReac Type Severity Reaction Status Date / Time oxycodone Allergy Unknown RASH Verified 08/28/21 01:55 Home Medications Medication Instructions Recorded Confirmed Type alfalfa 600 mg tablet 0 mg PO DAILY 08/28/21 08/28/21 History amoxicillin 500 mg capsule 2,000 mg PO DIRECTED PRN 08/28/21 08/28/21 History .BEFORE DENTAL PROCEDURE aspirin 81 mg tablet,delayed 81 mg PO DAILY 08/28/21 08/28/21 History release betamethasone valerate 0.1 % 1 applic topical BID PRN APPLY TO 08/28/21 08/28/21 History topical cream AFFECTED AREA calcium and magnesium carbonates 1 tab PO TID 08/28/21 08/28/21 History 520 mg-400 mg tablet diclofenac sodium 1 % topical gel 2 g topical DIRECTED PRN 08/28/21 08/28/21 History AFFECTED AREA doxepin 3 mg tablet 3 mg PO HS 08/28/21 08/28/21 History furosemide 40 mg tablet 40 mg PO DAILY 08/28/21 08/28/21 History gabapentin 100 mg capsule 200 mg PO HS 08/28/21 08/28/21 History levothyroxine 88 mcg tablet 88 mcg PO DAILY 08/28/21 08/28/21 History lorazepam 0.5 mg tablet 0.5 mg PO DAILY PRN Anxiety 08/28/21 08/28/21 History melatonin 10 mg tablet 10 mg PO HS 08/28/21 08/28/21 History metoprolol succinate 25 mg 25 mg PO BID 08/28/21 08/28/21 History tablet,extended release 24 hr multivitamin 1 tab PO DAILY 08/28/21 08/28/21 History omeprazole 20 mg capsule,delayed 20 mg PO HS 08/28/21 08/28/21 History release vitamins A,C,H-zihz-xatsso 14,320 1 cap PO BID 08/28/21 08/28/21 History unit-226 mg-200 unit capsule (PreserVision AREDS) Patient History Medical History (Updated 08/28/21 @ 11:40 by Jonathan Bean) Aortic valve sclerosis CKD (chronic kidney disease), stage III LEENA (generalized anxiety disorder) H/O tachycardia-bradycardia syndrome HTN (hypertension) LBBB (left bundle branch block) Osteoporosis Surgical History H/O total hysterectomy History of nasal surgery History of partial mastectomy Hx of appendectomy S/P placement of cardiac pacemaker Family History Other Heart disease Stroke Social History Smoking Status: Never smoker Hx Alcohol Use: No Hx Substance Use: No Preferred Language: Amharic Communication Ability: Effective Inventory Coordinator Required: Yes Beliefs That Will Affect Care: None Current Living Situation: Alone Current Living Situation Comment: [facility] current occupational status: retired Other Information That Helps Us Care for You: No Feels Safe at Home: Yes Safety Concerns: Feels Safe At This Time Assistive Devices: Glasses and Hearing Aid - Bilateral Physical Exam Physical Exam: General: A&Ox3. NAD. HENT: Normocephalic. Atraumatic. Eyes: PER. Conjunctiva pink, sclera clear. Neck: Bilateral carotid bruits. No overt JVD. Heart: Irregular with frequent ectopy. Systolic murmur. No diastolic murmur. No rub. PMI is nondisplaced. Lungs: Clear to auscultation. Abdomen: +BS. Soft. Nontender. No masses or organomegaly. Extremities: Mild edema. No clubbing. No cyanosis Limited neurological examination is without focal deficits. Pulses: radial=2/4, posterior tibial=2/4. Results & Data ([facility]) Vital Signs (Past 12 Hours) Vital Signs Temp Pulse Pulse Resp BP BP Pulse Ox 08/28/21 10:21 36.4 C L 81 20 174/71 H 95 08/28/21 07:00 66 17 95 08/28/21 06:46 74 25 H 96 08/28/21 06:46 197/108 H 08/28/21 06:30 80 26 H 94 08/28/21 06:00 82 15 94 08/28/21 05:30 79 15 94 08/28/21 05:00 84 18 91 08/28/21 04:30 79 15 94 08/28/21 04:00 79 18 93 08/28/21 03:01 173/84 H 08/28/21 03:01 81 20 173/84 H 92 08/28/21 02:31 82 16 166/60 H 94 08/28/21 02:01 6 L 94 08/28/21 01:32 183/74 H 08/28/21 01:32 81 20 183/72 H 93 08/28/21 01:30 81 19 95 08/28/21 00:30 79 25 H 08/28/21 00:00 77 26 H 177/102 H 96 08/27/21 23:31 82 20 179/88 H 95 08/27/21 23:30 83 20 08/27/21 23:24 83 30 H 205/74 H 92 08/27/21 23:20 83 22 94 08/27/21 23:19 37.2 C 85 18 94 O2 Del Method 08/28/21 10:21 Room Air 08/28/21 07:00 08/28/21 06:46 08/28/21 06:46 08/28/21 06:30 08/28/21 06:00 08/28/21 05:30 08/28/21 05:00 08/28/21 04:30 08/28/21 04:00 08/28/21 03:01 08/28/21 03:01 08/28/21 02:31 08/28/21 02:01 08/28/21 01:32 08/28/21 01:32 08/28/21 01:30 08/28/21 00:30 08/28/21 00:00 08/27/21 23:31 08/27/21 23:30 08/27/21 23:24 08/27/21 23:20 08/27/21 23:19 Room Air Laboratory Results Laboratory Results - last 24 hr 08/27/21 08/27/21 08/27/21 23:20 23:20 23:20 WBC 7.30 RBC 4.17 Hgb 12.9 Hct 37.5 MCV 89.9 MCH 30.9 MCHC 34.4 RDW Std Deviation 39.8 RDW Coeff of Lupe 12.1 Plt Count 237 MPV 10.6 Immature Gran % (Auto) 0.3 Neut % (Auto) 41.0 Lymph % (Auto) 36.4 [place] % (Auto) 13.8 Eos % (Auto) 7.7 Baso % (Auto) 0.8 Neut # (Auto) 2.99 Lymph # (Auto) 2.66 [place] # (Auto) 1.01 H Eos # (Auto) 0.56 H Baso # (Auto) 0.06 Immature Gran # (Auto) 0.02 PT 10.2 INR 1.0 Sodium 135 L Potassium 3.7 Chloride 101 Carbon Dioxide 25 Anion Gap 9 BUN 24 H Creatinine 1.06 Est Cr Clr Drug Dosing 36.2 Est GFR ( Amer) 53.9 Est GFR (Non-Af Amer) 46.5 BUN/Creatinine Ratio 22.6 H Glucose 106 H Calcium 9.3 Magnesium 2.1 Total Bilirubin 0.3 AST 21 ALT 18 Alkaline Phosphatase 54 Troponin I High Sens 14.4 H B-Natriuretic Peptide Total Protein 7.6 Albumin 4.4 Globulin 3.2 Albumin/Globulin Ratio 1.4 Lipase 80 TSH Lyme Disease IgG Ab Lyme Disease IgM Ab SARS-CoV-2 (PCR) 08/27/21 08/27/21 08/27/21 23:20 23:20 23:34 WBC RBC Hgb Hct MCV MCH MCHC RDW Std Deviation RDW Coeff of Lupe Plt Count MPV Immature Gran % (Auto) Neut % (Auto) Lymph % (Auto) [place] % (Auto) Eos % (Auto) Baso % (Auto) Neut # (Auto) Lymph # (Auto) [place] # (Auto) Eos # (Auto) Baso # (Auto) Immature Gran # (Auto) PT INR Sodium Potassium Chloride Carbon Dioxide Anion Gap BUN Creatinine Est Cr Clr Drug Dosing Est GFR ( Amer) Est GFR (Non-Af Amer) BUN/Creatinine Ratio Glucose Calcium Magnesium Total Bilirubin AST ALT Alkaline Phosphatase Troponin I High Sens B-Natriuretic Peptide 293 H Total Protein Albumin Globulin Albumin/Globulin Ratio Lipase TSH 2.269 Lyme Disease IgG Ab Negative Lyme Disease IgM Ab Negative SARS-CoV-2 (PCR) 08/28/21 08/28/21 08/28/21 02:10 07:15 07:15 WBC 7.31 RBC 4.48 Hgb 13.8 Hct 40.8 MCV 91.1 MCH 30.8 MCHC 33.8 RDW Std Deviation 40.4 RDW Coeff of Lupe 12.1 Plt Count 232 MPV 10.7 Immature Gran % (Auto) 0.1 Neut % (Auto) 42.7 Lymph % (Auto) 36.7 [place] % (Auto) 13.4 Eos % (Auto) 6.3 Baso % (Auto) 0.8 Neut # (Auto) 3.12 Lymph # (Auto) 2.68 [place] # (Auto) 0.98 H Eos # (Auto) 0.46 Baso # (Auto) 0.06 Immature Gran # (Auto) 0.01 PT INR Sodium 137 Potassium 3.9 Chloride 103 Carbon Dioxide 28 Anion Gap 6 BUN 19 Creatinine 0.98 Est Cr Clr Drug Dosing 39.2 Est GFR ( Amer) 59.3 Est GFR (Non-Af Amer) 51.1 BUN/Creatinine Ratio 19.4 Glucose 89 Calcium 9.7 Magnesium 2.2 Total Bilirubin AST ALT Alkaline Phosphatase Troponin I High Sens 26.9 H D B-Natriuretic Peptide Total Protein Albumin Globulin Albumin/Globulin Ratio Lipase TSH Lyme Disease IgG Ab Lyme Disease IgM Ab SARS-CoV-2 (PCR) NEGATIVE
[2021-08-28] MEDS: FUROSEMIDE 40 MG TAB PO SCH (11:28)
[2021-08-28] MEDS: amLODIPine BESYLATE 5 MG TAB PO SCH (12:48)
[2021-08-28] MEDS ORDERED: METOPROLOL SUCC 25MG EXT REL TAB PO ONE (13:56)
--- NOTE | 2021-08-28 16:42 | Electrocardiogram Report ---
Test Reason : Blood Pressure : / mmHG Vent. Rate : 093 BPM Atrial Rate : 141 BPM P-R Int : 000 ms QRS Dur : 130 ms QT Int : 390 ms P-R-T Axes : 000 -25 118 degrees QTc Int : 484 ms Atrial-paced rhythm with occasional supraventricular complexes Left bundle branch block Abnormal ECG When compared with ECG of 21-JAN-2018 06:13, No significant change was found Confirmed by Arnol Wan ([id number]) on 08/28/2021 4:42:28 PM Referred By: REFERRED SELF Confirmed By:Arnol Wan
--- NOTE | 2021-08-28 16:47 | Electrocardiogram Report ---
Test Reason : Blood Pressure : / mmHG Vent. Rate : 077 BPM Atrial Rate : 077 BPM P-R Int : 218 ms QRS Dur : 138 ms QT Int : 440 ms P-R-T Axes : 000 -26 106 degrees QTc Int : 497 ms Atrial-paced rhythm with prolonged AV conduction with occasional supraventricular complexes and Tessie ture atrial complexes Left bundle branch block Abnormal ECG When compared with ECG of 27-AUG-2021 23:17, (unconfirmed) Premature atrial complexes are now Present Confirmed by Arnol Wan ([id number]) on 08/28/2021 4:46:48 PM Referred By: REFERRED SELF Confirmed By:Arnol Wan
[2021-08-28] MEDS: METOPROLOL SUCC 50MG EXT REL TAB PO SCH (20:22)
[2021-08-28] MEDS ORDERED: PANTOprazole 40 MG TAB PO SCH (21:00)
[2021-08-28] MEDS ORDERED: GABAPENTIN 100 MG CAP PO SCH (21:00)
[2021-08-28] MEDS ORDERED: MELATONIN 3 MG TAB PO SCH (21:00)
[2021-08-29] MEDS: LEVOTHYROXINE SODIUM 88 MCG TABLET PO SCH (05:36)
[2021-08-29] MEDS: amLODIPine BESYLATE 5 MG TAB PO SCH (08:22)
[2021-08-29] MEDS: ATORVASTATIN 40 MG TAB PO SCH (08:23)
[2021-08-29] MEDS: CALCIUM CARBONATE 1250MG TAB PO SCH (08:23)
[2021-08-29] MEDS: ASPIRIN 81 MG ECTAB PO SCH (08:23)
[2021-08-29] MEDS: FUROSEMIDE 40 MG TAB PO SCH (08:24)
[2021-08-29] MEDS: METOPROLOL SUCC 50MG EXT REL TAB PO SCH (08:24)
[2021-08-29] MEDS: MULTIVITAMIN TAB PO SCH (08:25)
--- NOTE | 2021-08-29 10:20 | Cardiology Progress Note ---
Date of Service August 29, 2021 Assessment & Plan (1) Palpitations: (2) LEENA (generalized anxiety disorder): (3) Hypertensive urgency: (4) Hypertensive heart disease: (5) LBBB (left bundle branch block): Plan 89-year-old female admitted with increased palpitations, observed frequent atrial ectopy, marked hypertension. Episodes more pronounced with increased stressors. Echo revealed normal systolic function. Presenting symptoms, ectopy and blood pressure have all improved following titration of metoprolol and the addition of low dose amlodipine. Continue as presently prescribed. Outpatient cardiology follow-up with Dr. Silver in September, as scheduled, or as needed with the undersigned in the interim. Admission and Anticipated Discharge Date Admission Date: August 28, 2021 Supervising Physician Co-Signing Physician Notes Patient was seen and personally examined. Chart and telemetry reviewed. Still with occasional atrial ectopic beats but no arrhythmias observed. Patient feels substantially improved and blood pressure and heart rate better controlled on adjustments in medical therapies. Discussed medications in detail with patient plans as outlined above Subjective Patient seen and examined. Chart, medications, and telemetry reviewed. Feels better overall. No further chest tightness. Dyspnea has improved. Blood pressures have improved. Continuous telemetry monitoring reveals improvement in the frequent atrial ectopy compared to yesterday. Rhythm is sinus with atrial greater than ventricular ectopy, with heart rates in the 60s and 70s. August 28, 2021 TTE Interpretation Summary ([facility], Dr. Rodriguez): Normal size left ventricle. Moderate concentric LVH. Septal motion consistent with conduction abnormality. No regional wall motion abnormalities. Ejection fraction 60 to 65%. Moderately dilated left atrium. Moderate aortic valve sclerosis without significant aortic valve stenosis. Trace mitral regurgitation. Trace tricuspid regurgitation. Doppler findings do not suggest pulmonary hypertension. Review of Systems Review of Systems: Complete review of systems is otherwise as stated above, negative, or noncontributory. Physical Exam Physical Exam: General: A&Ox3. NAD. HENT: Normocephalic. Atraumatic. Eyes: PER. Conjunctiva pink, sclera clear. Neck: Bilateral carotid bruits. No overt JVD. Heart: Irregular with occasional ectopy. Systolic murmur. No diastolic murmur. No rub. PMI is nondisplaced. Lungs: Clear to auscultation. Abdomen: +BS. Soft. Nontender. No masses or organomegaly. Extremities: No edema. No clubbing. No cyanosis Limited neurological examination is without focal deficits. Pulses: radial=2/4, posterior tibial=2/4. Results & Data ([facility]) Vital Signs (Past 12 Hours) Vital Signs Temp Pulse Pulse Resp BP BP Pulse Ox 08/29/21 07:54 37.1 C 51 L 16 144/75 H 92 08/29/21 07:15 64 08/29/21 02:34 36.6 C 78 20 138/71 93 08/28/21 23:00 36.4 C L 56 L 19 102/63 98 O2 Del Method 08/29/21 07:54 Room Air 08/29/21 07:15 08/29/21 02:34 Room Air 08/28/21 23:00 Room Air Laboratory Results Laboratory Results - last 24 hr 08/28/21 12:39 Troponin I High Sens 22.7 H
--- NOTE | 2021-08-29 11:41 | Hospitalist Progress Note ---
Date of Service August 29, 2021 Assessment & Plan (1) Palpitations: Plan: - patient with ECG with atrial ectopy - initially troponin elevation that peaked and resolved without ECG ischemic changes - Cardiology evaluated - increased metoprolol to 50mg BID, added low dose amlodipine - patients symptoms have resolved - TTE was largely unremarkable - improvement in ectopy - has follow up with her Bill Of Materials Clerk in September 2021 (2) LEENA (generalized anxiety disorder): Plan: - continue home meds - well controlled here (3) Hypertensive urgency: Plan: - BP better controlled - continue medications at discharge (4) Hypertensive heart disease: Plan: - plan as above (5) LBBB (left bundle branch block): Plan: - metoprolol and amlodipine as above Plan Lyle Sanders MD [facility] Admission and Anticipated Discharge Date Admission Date: August 28, 2021 Subjective An 89-year-old female who lives at [place] with past medical history significant for hypothyroidism, paroxysmal SVT, tachybrady syndrome, status post pacemaker, chronic diastolic CHF, left bundle-branch block, hypertension, aortic valve sclerosis, chronic kidney disease stage III, history of GERD, history of carcinoma in situ of the vulva, female stress incontinence, remote history of endometrial cancer, senile osteoporosis, depression, recurrent falls, insomnia, generalized anxiety disorder, who presents with palpitations and shortness of breath. She was admitted for work up of ectopy on ECG with Cardiology. Increased metoprolol 25mg-->50mg BID and added low dose amlodipine with improvement in ectopy and patient's symptoms. TTE was unremarkable. Patient feels well today. No more chest discomfort, denies chest pain, shortness of breath, palpitations, cough, n/v/d, abdominal pain. Review of Systems Review of Systems: Complete review of systems is otherwise as stated above, negative, or noncontributory. Physical Exam Physical Exam: General: A&Ox3. NAD. HENT: Normocephalic. Atraumatic. Eyes: PER. Conjunctiva pink, sclera clear. Neck: Bilateral carotid bruits. No overt JVD. Heart: Irregular with occasional ectopy. Systolic murmur. No diastolic murmur. No rub. PMI is nondisplaced. Lungs: Clear to auscultation. Abdomen: +BS. Soft. Nontender. No masses or organomegaly. Extremities: No edema. No clubbing. No cyanosis Limited neurological examination is without focal deficits. Pulses: radial=2/4, posterior tibial=2/4. Results & Data Results & Data ([facility]) Vital Signs (Past 12 Hours) Vital Signs Temp Pulse Pulse Pulse Resp BP BP 08/29/21 11:20 37.0 C 44 L 16 147/67 H 08/29/21 08:20 64 08/29/21 07:54 37.1 C 51 L 16 144/75 H 08/29/21 07:15 64 08/29/21 02:34 36.6 C 78 20 138/71 Pulse Ox O2 Del Method 08/29/21 11:20 95 Room Air 08/29/21 08:20 08/29/21 07:54 92 Room Air 08/29/21 07:15 08/29/21 02:34 93 Room Air Diagnostic Findings Laboratory Results WBC 7.31 K/ul (4.8-10.8) 08/28/21 07:15 RBC 4.48 M/uL (3.93-5.22) 08/28/21 07:15 Hgb 13.8 g/dl (12.0-16.0) 08/28/21 07:15 Hct 40.8 % (34.1-44.9) 08/28/21 07:15 MCV 91.1 fL (80.0-100.0) 08/28/21 07:15 MCH 30.8 pg (25.0-34.0) 08/28/21 07:15 MCHC 33.8 g/dL (32.0-36.0) 08/28/21 07:15 RDW Std Deviation 40.4 fL (36.4-46.3) 08/28/21 07:15 RDW Coeff of Lupe 12.1 % (11.5-14.5) 08/28/21 07:15 Plt Count 232 K/uL (130-400) 08/28/21 07:15 MPV 10.7 fL (9.4-12.3) 08/28/21 07:15 Immature Gran % (Auto) 0.1 % 08/28/21 07:15 Neut % (Auto) 42.7 % 08/28/21 07:15 Lymph % (Auto) 36.7 % 08/28/21 07:15 [place] % (Auto) 13.4 % 08/28/21 07:15 Eos % (Auto) 6.3 % 08/28/21 07:15 Baso % (Auto) 0.8 % 08/28/21 07:15 Neut # (Auto) 3.12 K/uL (1.4-6.5) 08/28/21 07:15 Lymph # (Auto) 2.68 K/uL (1.2-3.4) 08/28/21 07:15 Barnwell # (Auto) 0.98 K/uL (0.24-0.82) H 08/28/21 07:15 Eos # (Auto) 0.46 K/uL (0-0.50) 08/28/21 07:15 Baso # (Auto) 0.06 K/uL (0-0.2) 08/28/21 07:15 Immature Gran # (Auto) 0.01 K/uL (0.00-0.02) 08/28/21 07:15 PT 10.2 Seconds (9.0-12.0) 08/27/21 23:20 INR 1.0 (0.9-1.1) 08/27/21 23:20 Sodium 137 mmol/L (136-145) 08/28/21 07:15 Potassium 3.9 mmol/L (3.5-5.1) 08/28/21 07:15 Chloride 103 mmol/L (98-107) 08/28/21 07:15 Carbon Dioxide 28 mmol/L (21-32) 08/28/21 07:15 Anion Gap 6 (3-11) 08/28/21 07:15 BUN 19 mg/dl (6-23) 08/28/21 07:15 Creatinine 0.98 mg/dl (0.6-1.2) 08/28/21 07:15 Est Cr Clr Drug Dosing 39.2 ml/min 08/28/21 07:15 Est GFR ( Amer) 59.3 ml/min 08/28/21 07:15 Est GFR (Non-Af Amer) 51.1 ml/min 08/28/21 07:15 BUN/Creatinine Ratio 19.4 (10-20) 08/28/21 07:15 Glucose 89 mg/dl (70-99(Fasting)) 08/28/21 07:15 Calcium 9.7 mg/dl (8.5-10.1) 08/28/21 07:15 Magnesium 2.2 mg/dl (1.7-2.4) 08/28/21 07:15 Total Bilirubin 0.3 mg/dl (0.2-1.0) 08/27/21 23:20 AST 21 U/L (13-39) 08/27/21 23:20 ALT 18 U/L (7-52) 08/27/21 23:20 Alkaline Phosphatase 54 U/L (34-104) 08/27/21 23:20 Troponin I High Sens 22.7 pg/ml (0-14) H 08/28/21 12:39 B-Natriuretic Peptide 293 pg/ml (0-100) H 08/27/21 23:34 Total Protein 7.6 gm/dl (6.0-8.3) 08/27/21 23:20 Albumin 4.4 gm/dl (3.4-5.0) 08/27/21 23:20 Globulin 3.2 gm/dl (2.5-4.0) 08/27/21 23:20 Albumin/Globulin Ratio 1.4 (0.9-2) 08/27/21 23:20 Lipase 80 U/L (11-82) 08/27/21 23:20 TSH 2.269 uIu/ml (0.300-4.500) 08/27/21 23:20 Lyme Disease IgG Ab Negative (Negative) 08/27/21 23:20 Lyme Disease IgM Ab Negative (Negative) 08/27/21 23:20 SARS-CoV-2 (PCR) NEGATIVE (Negative) 08/28/21 02:10 Impressions Chest X-Ray 08/27/21 23:34 XR chest 1V portable CLINICAL HISTORY: sob. COMPARISON STUDY: 01/19/2018 TECHNIQUE: 1 view of the chest FINDINGS: Single frontal view of the chest demonstrates the heart to again be mildly enlarged. Permanent cardiac pacer is again seen. The lungs are clear of alveolar opacities. There is no evidence for pleural effusion. There is no evidence for vascular congestion. There is no acute osseous pathology. IMPRESSION: 1. No acute cardiopulmonary disease. ACT 112: Negative or not required by law. Electronically signed by: Kory Waller M.D. 08/28/2021 7:52 AM Chest CTA 08/28/21 01:38 CT angio chest PE protocol CLINICAL HISTORY: Shortness of breath and cough COMPARISON STUDY: Portable chest from 08/27/2021 CT DOSE: 232.34 mGy.cm TECHNIQUE: CT Angio of the chest was performed.followed by image post processing with coronal, and sagittal MIP reformats. Contrast Volume: Optiray 320, 98 ml FINDINGS: There is breathing motion artifact present. Vasculature: There is homogeneous perfusion of the pulmonary vasculature bilaterally. No intraluminal filling defects or evidence for pulmonary embolus is seen. Airway: The airway is clear. No endobronchial lesion is identified. Lungs: The lungs are clear of acute alveolar opacities, air bronchograms or pulmonary nodules. Pleura: There is no evidence for pleural effusion. There is no evidence for pneumothorax. Mediastinum: There is no evidence for pathologic adenopathy. The heart is mildly enlarged. Coronary artery calcification is present. The thoracic aorta is within normal limits. Atherosclerotic calcification is present. There is no evidence for pericardial effusion. Upper abdomen: The adrenal glands are normal bilaterally. Osseous structures: There is no acute osseous pathology. Impression: 1. No CTA evidence for pulmonary embolus. 2. No acute chest disease. ACT 112: Negative or not required by law. Electronically signed by: Kory Waller M.D. 08/28/2021 8:33 AM Medications Administered Current Inpatient Medications Acetaminophen (Acetaminophen 325 Mg Tab) 650 mg PO Q4H PRN PRN Reason: Pain or Fever Stop: 09/27/21 06:52 Amlodipine Besylate (Amlodipine Besylate 5 Mg Tab) 2.5 mg PO QAM [facility] Stop: 09/27/21 12:14 Last Admin: 08/29/21 08:22 Dose: 2.5 mg Aspirin (Aspirin 81 Mg Ectab) 81 mg PO DAILY [facility] Stop: 09/27/21 08:59 Last Admin: 08/29/21 08:23 Dose: 81 mg Atorvastatin Calcium (Atorvastatin 40 Mg Tab) 80 mg PO QAM [facility] Stop: 09/27/21 09:29 Last Admin: 08/29/21 08:23 Dose: 80 mg Betamethasone Valerate (Betamethasone Tressa 0.1% Cr 15 Gm) 1 appln TOP BID PRN PRN Reason: APPLY TO AFFECTED AREA Stop: 09/27/21 06:52 Calcium Carbonate (Calcium Carbonate 1250mg Tab) 1,250 mg PO TID [facility] Stop: 09/27/21 08:59 Last Admin: 08/29/21 08:23 Dose: 1,250 mg Diclofenac Sodium (Diclofenac Sod 1% Gel 100 Gm Tube) 2 gm EXT BID PRN; Protocol PRN Reason: AFFECTED AREA Stop: 09/27/21 06:52 Furosemide (Furosemide 40 Mg Tab) 40 mg PO DAILY [facility] Stop: 09/27/21 08:59 Last Admin: 08/29/21 08:24 Dose: 40 mg Gabapentin (Gabapentin 100 Mg Cap) 200 mg PO HS [facility] Stop: 09/27/21 20:59 Last Admin: 08/28/21 21:03 Dose: 200 mg Levothyroxine Sodium (Levothyroxine Sodium 88 Mcg Tablet) 88 mcg PO DAILYBB [facility] Stop: 09/27/21 07:59 Last Admin: 08/29/21 05:36 Dose: 88 mcg Lorazepam (Lorazepam 0.5 Mg Tab) 0.5 mg PO DAILY PRN PRN Reason: Anxiety Stop: 09/27/21 06:52 Melatonin (Melatonin 3 Mg Tab) 9 mg PO HS [facility] Stop: 09/27/21 20:59 Last Admin: 08/28/21 20:21 Dose: 9 mg Metoprolol Succinate (Metoprolol Succ 50mg Ext Rel Tab) 50 mg PO BID [facility] Stop: 09/27/21 20:59 Last Admin: 08/29/21 08:24 Dose: 50 mg Miscellaneous (Doxepin 3 Mg Tablet - Order Awaiting Action) 1 each N/A QS [facility] Stop: 09/27/21 07:59 Last Admin: 08/29/21 07:41 Dose: Not Given Multivitamins (Multivitamin Tab) 1 tab PO DAILY [facility] Stop: 09/27/21 08:59 Last Admin: 08/29/21 08:25 Dose: 1 tab Nitroglycerin (Nitroglycerin Sl 0.4 Mg/Tab Tab) 0.4 mg SL UD PRN PRN Reason: Chest Pain Stop: 09/27/21 06:52 Ondansetron HCl (Ondansetron Inj 2 Mg/Ml 2 Ml Vial) 4 mg IV Q6H PRN PRN Reason: Nausea Stop: 09/27/21 06:52 Pantoprazole Sodium (Pantoprazole 40 Mg Tab) 40 mg PO HS [facility] Stop: 09/27/21 20:59 Last Admin: 08/28/21 21:03 Dose: 40 mg Polyethylene Glycol (Polyethylene (Miralax) 17 Gm Pack) 17 gm PO DAILY PRN PRN Reason: Constipation Stop: 09/27/21 06:52
--- NOTE | 2021-08-29 17:30 | Discharge Summary ---
Date of Service August 29, 2021 Admission HPI Per Admitting Provider An 89-year-old female who lives at [place] with past medical history significant for hypothyroidism, paroxysmal SVT, tachybrady syndrome, status post pacemaker, chronic diastolic CHF, left bundle-branch block, hypertension, aortic valve sclerosis, chronic kidney disease stage III, history of GERD, history of carcinoma in situ of the vulva, female stress incontinence, remote history of endometrial cancer, senile osteoporosis, depression, recurrent falls, insomnia, generalized anxiety disorder, who presents with palpitations and shortness of breath. Yesterday night, she has some palpitations, tonight it got worse and she is having difficulty taking deep breaths, which prompted her to come to the ER. Denies any chest pain, no nausea, no vomiting, no headache, no dizziness, no blurred visions, no earache, no runny nose, no sore throat. Appetite is okay. No difficulty swallowing. No nausea, no abdominal pain. No sweating. Normal bowel and bladder movements. She is ambulating okay. Pacemaker was interrogate d in the ER. Admission Exam Per Admitting Provider GENERAL: The patient is old and frail, not in acute distress. VITAL SIGNS: Temperature 37.2, pulse 79, respiratory rate 25, blood pressure 177/102, oxygen 96% on room air. HEENT: Pupils equal, round and reactive to light. Oral mucosa moist. NECK: No JVD, no neck masses. CARDIOVASCULAR: S1 and S2 heard. Regular rate and rhythm. No murmur, no gallop. RESPIRATORY SYSTEM: Normal AP diameter. No accessory muscle use. No wheezing, no crackles. ABDOMEN: Soft, bowel sounds present, nontender, no distention. CENTRAL NERVOUS SYSTEM: Cranial nerves II through XII grossly intact, nonfocal. EXTREMITIES: Trace pedal edema, no erythema seen. Principal Diagnosis ectopy with palpitations Discharge Exam General: A&Ox3. NAD. HENT: Normocephalic. Atraumatic. Eyes: PER. Conjunctiva pink, sclera clear. Neck: Bilateral carotid bruits. No overt JVD. Heart: Irregular with occasional ectopy. Systolic murmur. No diastolic murmur. No rub. PMI is nondisplaced. Lungs: Clear to auscultation. Abdomen: +BS. Soft. Nontender. No masses or organomegaly. Extremities: No edema. No clubbing. No cyanosis Limited neurological examination is without focal deficits. Pulses: radial=2/4, posterior tibial=2/4. Discharge Data Allergies Allergy/AdvReac Type Severity Reaction Status Date / Time oxycodone Allergy Unknown RASH Verified 08/28/21 01:55 Consultations 08/28/21 02:46 ED Decision to Admit Stat 08/28/21 08:00 Consult Cardiology Routine Ordered Studies 08/28/21 01:38 CT angio chest PE protocol Urgent Hospital Course (1) Palpitations: - patient with ECG with atrial ectopy - initially troponin elevation that peaked and resolved without ECG ischemic changes - Cardiology evaluated - increased metoprolol to 50mg BID, added low dose amlodipine - patients symptoms have resolved - TTE was largely unremarkable - improvement in ectopy - has follow up with her Linux Engineer in September 2021 (2) LEENA (generalized anxiety disorder): - continue home meds - well controlled here (3) Hypertensive urgency: - BP better controlled - continue medications at discharge (4) Hypertensive heart disease: - plan as above (5) LBBB (left bundle branch block): - metoprolol and amlodipine as above Plan Lyle Sanders MD [facility] Total Time Total Time Spent Total Time Spent (In Minutes): 30 minutes Total Time Includes: Examination of the Patient, Discharge Planning, Medication Reconciliation and Communication With Other Providers Discharge Plan Discharge Items Patient Disposition: Home - Self-Care Reason For Visit: PALPITATIONS Discharge Diagnosis: atrial ectopy Condition on Discharge: Fair Activity: Resume your previous activity Non-emergency contact: Primary Care Provider and Linux Engineer Call non-emergency contact if: you have any medication questions and your symptoms worsen Follow-up/Referrals: Hugo Silver DO [Linux Engineer] - Gadiel Haile DO [Primary Care Provider] - Diet: Heart Healthy Addtl Attending Provider Instructions: You were admitted for palpitations and some irregular heart beats. Your heart was examined and determined to be functioning well with increased extra beats. Cardiology evaluated you and recommended some changes to your heart medications with metoprolol and the addition of amlodipine with improvement in your heart beat irregularly to be more regular and you symptoms improved. Pending Studies at Discharge: No Stand-Alone Forms: My [facility] [employer], Smoking Cessation Medications and DC Order Prescriptions: New metoprolol succinate 50 mg Tablet Extended Release 24 Hr 50 mg PO BID Qty: 60 0RF amlodipine [Norvasc] 5 mg Tablet 2.5 mg PO QAM Qty: 30 0RF atorvastatin 40 mg Tablet 80 mg PO QAM Qty: 30 0RF Continued multivitamin Tablet 1 tab PO DAILY amoxicillin 500 mg capsule 2,000 mg PO DIRECTED PRN (Reason: .BEFORE DENTAL PROCEDURE) furosemide 40 mg tablet 40 mg PO DAILY aspirin 81 mg Tablet,Delayed Release (Dr/Ec) 81 mg PO DAILY levothyroxine 88 mcg tablet 88 mcg PO DAILY lorazepam 0.5 mg Tablet 0.5 mg PO DAILY PRN (Reason: Anxiety) betamethasone valerate 0.1 % cream 1 applic TOPICAL BID PRN (Reason: APPLY TO AFFECTED AREA) omeprazole 20 mg capsule,delayed release(DR/EC) 20 mg PO HS gabapentin 100 mg capsule 200 mg PO HS diclofenac sodium 1 % Gel 2 g TOPICAL DIRECTED PRN (Reason: AFFECTED AREA) doxepin 3 mg tablet 3 mg PO HS alfalfa 600 mg Tablet 0 mg PO DAILY Rx Instructions: takes 4-5 tabs bid melatonin 10 mg Tablet 10 mg PO HS calcium and magnesium carbonat 520-400 mg Tablet 1 tab PO TID PreserVision AREDS [id number] Capsule 1 cap PO BID Discontinued metoprolol succinate 25 mg tablet extended release 24 hr 25 mg PO BID Discharge Orders: Discharge Order (Routine); Ordered 08/29/21 Ordered By: Lyle Sanders Admission Data Admit Date/Time: 08/28/21 03:15 Attending Provider: Lyle Sanders Admit Provider: Julius Nieto Primary Care Provider: Gadiel Haile Other Providers: Julius Nieto ; Jr Pantoja ; Hugo Silver ; Freddy Rodriguez ; Kevyn Moya ; Nasir Valentin ; Jonathan Bean ; Seble Hopkins ; Chantale Patel ; Kesha Yadav ; Olu Islas Other Interventions: Discharge Summary Assessment (RN) Last Done: 08/29/21 11:44
--- NOTE | 2021-08-29 22:49 | Electrocardiogram Report ---
Test Reason : Blood Pressure : / mmHG Vent. Rate : 060 BPM Atrial Rate : 060 BPM P-R Int : 218 ms QRS Dur : 130 ms QT Int : 496 ms P-R-T Axes : 000 -33 110 degrees QTc Int : 496 ms Atrial-paced rhythm with prolonged AV conduction Left axis deviation Left bundle branch block Abnormal ECG When compared with ECG of 28-AUG-2021 07:22, Premature atrial complexes are no longer Present Confirmed by Ho Shahid ([id number]) on 08/29/2021 10:49:02 PM Referred By: REFERRED SELF Confirmed By:Ho Shahid
== END 2021-08-29 13:13 | disposition home or self-care (01) ==
LOC: ED 23:13 → SUATTDRO 08-28 03:15 → INTOOBSV 08-28 03:15 → EDINP 08-28 03:15 → 2N 08-28 06:22